=== PATIENT | female | born 1990 | race Caucasian/White ===

== ENCOUNTER → 2017-11-17 09:17 | Outpatient (CLI) | payer BC, SELFPAY ==
[2017-11-17 11:37] LABS: Estradiol 35.3 pg/mL; Follicle Stimulating Hormone 6.3 mIU/mL; Glucose 93 mg/dL (74-106); Prolactin 0.3 ng/mL
[2017-11-17 11:41] LABS: Insulin 10.2 mU/L (2.6-37.6); Vitamin D,25 Hydroxy 15.4 ng/mL (19.95-100.01)
[2017-11-21 12:08] LABS: DHEA Sulfate 226.4 ug/dL (84.8-378.0); Insulin Like Growth Factor 201 ng/mL (93-342)
[2017-11-21 14:44] LABS: Androstenedione 118 ng/dL (41-262); Sex Hormone-binding Globulin 39.5 nmol/L (24.6-122.0)
== END ==
PROVIDERS: Visit Provider Obstetrics & Gynecology
DX: D35.2 Benign neoplasm of pituitary gland (principal); R68.82 Decreased libido; R63.5 Abnormal weight gain; E22.9 Hyperfunction of pituitary gland, unspecified; E22.1 Hyperprolactinemia
CPT/HCPCS: 36415; 82157; 82306; 82627; 82670; 82947; 83001; 83525; 84146; 84270; 84305; 84403; 82626

== ENCOUNTER → 2018-06-09 15:30 | Outpatient (CLI) | payer BC, SELFPAY ==
[2018-06-09 18:02] LABS: Prolactin 13.1 ng/mL
== END ==
PROVIDERS: Visit Provider Obstetrics & Gynecology
DX: E22.1 Hyperprolactinemia (principal)
CPT/HCPCS: 36415; 84146

== ENCOUNTER 2018-09-23 05:01 | Emergency (ER) | payer BC, SELFPAY ==
[2018-09-23 05:01] VITALS: BP 147/97; PULSE 100; RESP 16; TEMP 37; O2SAT 99; BMI 25.4
--- NOTE | 2018-09-23 05:15 | ED.VISSUMM ---
- ER Visit Summary Date of Service: 09/23/18 Chief Complaint: Vomiting and diarrhea History of Present Illness: The patient is a 27 F presenting with vomiting and diarrhea. She has had approximately 5 episodes of vomiting with no blood in her emesis. She has had diarrhea x3 with no blood. She denies sick contacts. Denies possibility of bad food exposure. Denies recent antibiotics. Denies fever. She complains of mild diffuse abdominal cramping. Denies other complaints. Physical Examination: Vitals are stable. Patient is afebrile. Alert no acute distress. HEENT exam is unremarkable. Neck is supple. Lungs are clear and equal bilaterally. Heart is regular rate and rhythm. Abdomen is soft nontender nondistended. No guarding or rebound Extremities are unremarkable. Skin is warm and dry. Remainder of exam is unremarkable. Emergency Department Course and Treatment: Patient is given IV fluids, Zofran. Basic metabolic panel is unremarkable. HCG negative. She continues to have nausea and was given Phenergan IV. Following this, she had improvement of her symptoms. She is able to tolerate p.o. in the emergency department. On repeat evaluation she is resting comfortably. She is given a prescription for Phenergan. Advised to follow-up with her primary care physician. Advised return to ED if worsening complaints. Disposition: Discharge home Impression: Vomiting and diarrhea This note was generated with [employer]unch [employer] dictation software. It may contain incorrect words, spelling, and punctuation that were not noted in review of the chart prior to signing ED Disposition - Plan for ED Patient: Chief Complaint: Nausea/Vomiting/Diarrhea Instructions: ED Vomiting Diarrhea Nonspecific Ad Prescriptions: proMETHazine tablet [Phenergan] 25 mg PO Q6H PRN PRN #10 tablet PRN Reason: Nausea Referrals: Stephanie Freed MD [Primary Care Provider] -
[2018-09-23] MEDS: Ondansetron 4 MG/2 ML Vial IV (05:28)
[2018-09-23] MEDS: 0.9% Normal Saline 1,000 ML 999 ML IV (05:28)
[2018-09-23 05:53] LABS: Anion Gap 8 (5-15); BUN 8 mg/dL (7-18); BUN/Creat Ratio 14.7 RATIO (10-20); Calcium,Total 8.6 mg/dL (8.5-10.1); Chloride 107 mmol/L (98-107); Creatinine, Serum 0.55 mg/dL (0.55-1.02); EST Glomerular Filtration Rate 142 mL/min (>60); Est Glom Filt Rate - Afr Amer 172 mL/min (>60); Estimated Creatinine Clearance 122.59 ml/min; Glucose 107 mg/dL (74-106); Potassium 3.8 mmol/L (3.5-5.1); Sodium Level 142 mmol/L (136-145)
[2018-09-23 05:58] LABS: Pregnancy, Serum, hCG Quali. NEGATIVE Negative (0-9 Nonpreg)
[2018-09-23] MEDS: proMETHazine 25 MG/ML Syringe 6.25 MG IV (06:11)
--- NOTE | 2018-09-23 06:41 | ED.DEP ---
ED Disposition - Plan for ED Patient: Chief Complaint: Nausea/Vomiting/Diarrhea Instructions: ED Vomiting Diarrhea Nonspecific Ad Prescriptions: proMETHazine tablet [Phenergan] 25 mg PO Q6H PRN PRN #10 tablet PRN Reason: Nausea Referrals: Stephanie Freed MD [Primary Care Provider] -
[2018-09-23 06:56] VITALS: RESP 16
--- OUTSIDE RECORDS SUMMARY | 2018-11-09 01:53 | XMS RPT_ITS ---
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 / [facility] D35.2(ICD-10) Hospital Repository PROCEDURES PROCEDURES No Procedure Records FoundRESULTS RESULTS EMERGENCY DEPARTMENT Observed: 09/23/2018 Status: F Source: [place] SUMMARY 6:48 AM [facility] REPOSITORY [facility] Medical Records Department [address] [place] [address] Emergency Department Summary 09/23/18 0515 MR#: [id number] Acct: [id number] Name: JOSEPH BAUTISTA Rep #: [id number] : 1990 27 From: Cait Valdez MD PCP: Stephanie Freed MD Status: REG ER - ER Visit Summary Date of Service: 09/23/18 Chief Complaint: Vomiting and diarrhea History of Present Illness: The patient is a 27 F presenting with vomiting and diarrhea. She has had approximately 5 episodes of vomiting with no blood in her emesis. She has had diarrhea x3 with no blood. She denies sick contacts. Denies possibility of bad food exposure. Denies recent antibiotics. Denies fever. She complains of mild diffuse abdominal cramping. Denies other complaints. Physical Examination: Vitals are stable. Patient is afebrile. Alert no acute distress. HEENT exam is unremarkable. Neck is supple. Lungs are clear and equal bilaterally. Heart is regular rate and rhythm. Abdomen is soft nontender nondistended. No guarding or rebound Extremities are unremarkable. Skin is warm and dry. Remainder of exam is unremarkable. Emergency Department Course and Treatment: Patient is given IV fluids, Zofran. Basic metabolic panel is unremarkable. HCG negative. She continues to have nausea and was given Phenergan IV. Following this, she had improvement of her symptoms. She is able to tolerate p.o. in the emergency department. On repeat evaluation she is resting comfortably. She is given a prescription for Phenergan. Advised to follow-up with her primary care physician. Advised return to ED if worsening complaints. Disposition: Discharge home Impression: Vomiting and diarrhea This note was generated with Lot78 dictation software. It may contain incorrect words, spelling, and punctuation that were not noted in review of the chart prior to signing ED Disposition - Plan for ED Patient: Chief Complaint: Nausea/Vomiting/Diarrhea Instructions: ED Vomiting Diarrhea Nonspecific Ad Prescriptions: proMETHazine tablet [Phenergan] 25 mg PO Q6H PRN PRN #10 tablet PRN Reason: Nausea Referrals: Stephanie Freed MD [Primary Care Provider] - What to do if you have Problems For any increased pain, shortness of breath, bleeding, nausea or vomiting, chest pain, or any unexpected problems, contact your Primary Care Provider. Call [facility] ([phone]) or report to the closest Emergency Room. Call 911 if necessary. 09/23/1848 <Electronically signed by Cait Valdez MD> Date Cait Valdez MD Cosigner Signature (If Indicated): Date CC: Stephanie Freed MD DISCHARGE INSTRUCTION Observed: 09/23/2018 Status: F Source: [place] 6:41 AM [facility] REPOSITORY [facility] Medical Records Department [address] [place] [address] Discharge Instruction 09/23/18640 MR#: [id number] Acct: [id number] Name: JOSEPH BAUTISTA Rep #: [id number] : 1990 27 From: Cait Valdez MD PCP: Stephanie Freed MD Status: REG ER ED Disposition - Plan for ED Patient: Chief Complaint: Nausea/Vomiting/Diarrhea Instructions: ED Vomiting Diarrhea Nonspecific Ad Prescriptions: proMETHazine tablet [Phenergan] 25 mg PO Q6H PRN PRN #10 tablet PRN Reason: Nausea Referrals: Stephanie Freed MD [Primary Care Provider] - What to do if you have Problems For any increased pain, shortness of breath, bleeding, nausea or vomiting, chest pain, or any unexpected problems, contact your Primary Care Provider. Call [facility] ([phone]) or report to the closest Emergency Room. Call 911 if necessary. 09/23/18640 <Electronically signed by Cait Valdez MD> Date Cait Valdez MD Cosigner Signature (If Indicated): Date CC: Stephanie Freed MD BASIC METABOLIC Collected: 09/23/2018 Status: F Source: [place] PROFILE (BMP) 5:33 AM [facility] REPOSITORY TYPE CODE TESTS RESULT OUT OF RANGE REFERENCE UNITS LAB L501.0100 74-106 mg/dL High GLU 107 Result Comment: Fasting Glucose result from 100 to 125 mg/dL suggests IMPAIRED HOMEOSTASIS per A.D.A. criteria. Please note revised GLUCOSE reference range effective 2017. LAB L501.1000 7-18 mg/dL Normal BUN 8 LAB L501.1100 0.55-1.02 mg/dL Normal CREAT,SERUM 0.55 Result Comment: The validity of the calculated GFR AND GFRAA in patients over 70 years has not been determined. Clinical correlation is essential. LAB L501.1110 >60 mL/min Normal EST GFR 142 Result Comment: Non- GFR Calc LAB L501.1115 >60 mL/min Normal EST GFR - AA 172 Result Comment: GFR Calc LAB L501.1255 ml/min Normal Estimated CRCL 122.59 LAB L501.1300 10-20 RATIO BUN/CRE Normal 14.7 LAB L501.2200 8.5-10 mg/dL .1 CA Normal 8.6 LAB L501.5300 136-14 mmol/L 5 NA Normal 142 LAB L501.5600 3.5-5. mmol/L 1 K Normal 3.8 LAB L501.5900 98-107 mmol/L CL Normal 107 LAB L501.6100 21.0-3 mmol/L 2.0 CO2 Normal 27.0 LAB L501.6200 5-15 GAP Normal 8 Performed By: #### L500.2500 #### [facility] [address] [place], [address] ,SERUM,HCG QUALI. Collected: Status: F Source: [place] 09/23/2018 5:33 AM [facility] REPOSITORY TYPE CODE TESTS RESULT OUT OF REFERENCE UNITS RANGE LAB L700.6700 =>Qualitative mIU/mL Normal HCG Qual < 1 triggr LAB L700.7000 0-9 Nonpreg Negative Normal HCGSQUAL NEGATIVE Performed By: #### L700.6800 #### [facility] [address] [place], [address] PROLACTIN Collected: 06/09/2018 Status: F Source: [place] 3:35 PM [facility] REPOSITORY TYPE CODE TESTS RESULT OUT OF RANGE REFERENCE UNITS LAB L3100.5420 ng/mL Normal PROLACTIN 13.1 Result Comment: NORMAL REFERENCE RANGES FEMALE NON- 2.2 - 30.3 ng/mL 8.1 - 347.6 ng/mL POST-MENOPAUSAL 0.7 - 31.5 ng/mL MALE 2.5 - 17.4 ng/mL NEW TEST METHOD AND REFERENCE RANGES MARCH 02, 2012 Performed By: #### L3100.5420 #### [facility] [address] [place], [address] VITAMIN D,25 HYDROXY Collected: 11/17/2017 Status: F Source: [place] 9:36 AM [facility] REPOSITORY TYPE CODE TESTS RESULT OUT OF REFERENCE UNITS RANGE LAB L506.1000 19.95-100.01 ng/mL Low Vitamin D 15.4 25-OH Result Comment: Vitamin D 25(OH) Status Range Deficiency <20 ng/mL (50nmol/L) Insuffciency 20 - 30 ng/mL (50 - 75 nmol/L) Sufficiency 30 - 100 ng/mL (75 - 250 nmol/L) Toxicity >100 ng/mL (>250 nmol/L) Performed By: #### L506.1000, L509.3000, [id number] #### [facility] [address] [place], [address] TESTOSTERONE, SERUM TOTAL Collected: 11/17/2017 Status: F Source: [place] 9:36 AM [facility] REPOSITORY TYPE CODE TESTS RESULT OUT OF REFERENCE UNITS RANGE LAB L509.3000 ng/dL Testosterone Normal 20.13 Result Comment: NORMAL REFERENCE RANGES MALE AGE <50 123.06 - 813.86 ng/dL MALE AGE >50 89.98 - 780.10 ng/dL FEMALE PREMENOPAUSE AGE 21 - 60 9.01 - 47.94 ng/dL FEMALE POSTMENOPAUSE AGE 45 - 89 <7.00 - 45.62 ng/dL REFERENCE RANGE AND METHODOLOGY CHANGED 10/01/2017 Performed By: #### L506.1000, L509.3000, [id number] #### [facility] [address] [place], [place], [address] INSULIN Collected: 11/17/2017 Status: F Source: [place] 9:36 AM [facility] REPOSITORY TYPE CODE TESTS RESULT OUT OF RANGE REFERENCE UNITS LAB [id number] 2.6-37.6 mU/L Normal Insulin 10.2 Result Comment: Please Note: INSULIN METHOD AND REFERENCE RANGE CHANGE Effective 10/23/2017. Performed By: #### L506.1000, L509.3000, [id number] #### [facility] [address] [place], [place], [address] SEX HORMONE-BINDING Collected: 11/17/2017 Status: F Source: [place] GLOBULIN 9:36 AM [facility] REPOSITORY Order Comment: Has Patient had Radioactive Injection for X-ray?: N TYPE CODE TESTS RESULT OUT OF RANGE REFERENCE UNITS LAB L3100.5060 24.6-122.0 nmol/L Normal SHBG 39.5 Result Comment: Performed at: [facility] [id number] Retort Cooler: Everett Spencer PhD, Phone: [phone] Performed at: [facility] Lab[address] [id number] Retort Cooler: Shade Koo MD, Phone: [phone] Performed By: #### L3100.5060, L3300.1500, L3300.4450, L3400.1350 #### [facility] (refer to report for specific site) refer to report for address and phone number DHEA SULFATE Collected: 11/17/2017 Status: F Source: [place] 9:36 AM [facility] REPOSITORY Order Comment: Has Patient had Radioactive Injection for X-ray?: N TYPE CODE TESTS RESULT OUT OF RANGE REFERENCE UNITS LAB L3300.1500 84.8-378.0 ug/dL Normal DHEA SULF 226.4 4020 Performed By: #### L3100.5060, L3300.1500, L3300.4450, L3400.1350 #### [facility] (refer to report for specific site) refer to report for address and phone number ANDROSTENEDIONE Collected: 11/17/2017 Status: F Source: [place] 9:36 AM [facility] REPOSITORY Order Comment: Has Patient had Radioactive Injection for X-ray?: N TYPE CODE TESTS RESULT OUT OF RANGE REFERENCE UNITS LAB L3300.4450 41-262 ng/dL Normal ANDROSTEN 4705 118 Result Comment: This test was developed and its performance characteristics determined by [facility]. It has not been cleared or approved by the Food and Drug Administration. Performed By: #### L3100.5060, L3300.1500, L3300.4450, L3400.1350 #### [facility] (refer to report for specific site) refer to report for address and phone number INSULIN LIKE GROWTH Collected: 11/17/2017 Status: F Source: [place] FACTOR 9:36 AM [facility] REPOSITORY Order Comment: Has Patient had Radioactive Injection for X-ray?: N TYPE CODE TESTS RESULT OUT OF RANGE REFERENCE UNITS LAB L3400.1350 93-342 ng/mL Normal INSULIN 201 [id number] Performed By: #### L3100.5060, L3300.1500, L3300.4450, L3400.1350 #### [facility] (refer to report for specific site) refer to report for address and phone number GLUCOSE Collected: 11/17/2017 Status: F Source: [place] 9:21 AM [facility] REPOSITORY TYPE CODE TESTS RESULT OUT OF RANGE REFERENCE UNITS LAB L501.0100 74-106 mg/dL Normal GLU 93 Performed By: #### L501.0100, L3100.5125, L3100.5420, L3300.1750 #### [facility] [place], [address] FOLLICLE STIMULATING Collected: 11/17/2017 Status: F Source: [place] HORMONE 9:21 AM [facility] REPOSITORY TYPE CODE TESTS RESULT OUT OF RANGE REFERENCE UNITS LAB L3100.5125 mIU/mL Normal FSH 6.3 Result Comment: NORMAL REFERENCE RANGES FEMALE FOLLICULAR 2.3 - 12.6 mIU/mL MID-CYCLE PEAK 5.2 - 17.5 mIU/mL LUTEAL 1.7 - 12.9 mIU/mL POST-MENOPAUSAL ON MHT 5.9 - 72.8 mIU/mL NOT ON MHT 12.7 - 132.2 mlU/mL MALE 0.7 - 10.8 mIU/mL NEW TEST METHOD AND REFERENCE RANGES MARCH 02, 2012 Performed By: #### L501.0100, L3100.5125, L3100.5420, L3300.1750 #### [facility] [address] [place], [place], [address] PROLACTIN Collected: 11/17/2017 Status: F Source: [place] 9:21 AM [facility] REPOSITORY TYPE CODE TESTS RESULT OUT OF RANGE REFERENCE UNITS LAB L3100.5420 ng/mL Normal PROLACTIN 0.3 Result Comment: NORMAL REFERENCE RANGES FEMALE NON- 2.2 - 30.3 ng/mL 8.1 - 347.6 ng/mL POST-MENOPAUSAL 0.7 - 31.5 ng/mL MALE 2.5 - 17.4 ng/mL NEW TEST METHOD AND REFERENCE RANGES MARCH 02, 2012 Performed By: #### L501.0100, L3100.5125, L3100.5420, L3300.1750 #### [facility] [address] [place], [place], [id number] ESTRADIOL Collected: 11/17/2017 Status: F Source: [place] 9:21 AM [facility] REPOSITORY TYPE CODE TESTS RESULT OUT OF RANGE REFERENCE UNITS LAB L3300.1750 pg/mL Normal ESTRADIOL 35.3 Result Comment: NORMAL REFERENCE RANGES FEMALE FOLLICULAR 21.4 - 164.8 pg/mL MID-CYCLE PEAK 49.9 - 367.2 pg/mL LUTEAL 40.2 - 259.0 pg/mL POST-MENOPAUSAL ON MHT <11.0 - 462.1 pg/mL NOT ON MHT <11.0 - 58.3 pg/mL MALE <11.0 - 52.5 pg/mL NOTE: [facility] HAS CONFIRMED THE DRUG FULVETRANT (FASLODEX) MAY CAUSE FALSELY ELEVATED ESTRADIOL RESULTS WHEN USING THIS TEST METHOD. IF PATIENT IS TAKING FULVESTRANT AN ALTERNATIVE METHOD SHOULD BE USED TO DETERMINE ESTRADIOL CONCENTRATION. Performed By: #### L501.0100, L3100.5125, L3100.5420, L3300.1750 #### [facility] [address] [place], [place], [address] ALLERGIES ALLERGIES DATE TYPE / CODE NAME / CODE REACTION SEVERITY SOURCE 09/11/2017 Drug No Known Unknown [place] [facility] Allergy/4160 Allergies/F00 Hospital 11886(SNOMED 9316135(RXNOR Repository CT) M) ENCOUNTERS ENCOUNTERS ADMIT/DISCHARGE ACCOUNT ADMITTING ENCOUNTER LOCATION SOURCE NUMBER CLASS 09/23/2018/ [id number] Emergency [place] 8 7 [facility] ing:ED Repository 06/09/2018 [id number] Ambulatory [place] 3 [facility] ing:WOBLAB Repository 11/17/2017 [id number] Ambulatory [place] 7 [facility] ing:WOBLAB Repository PAYERS PAYERS ENCOUNTER GUARANTOR PAYER SUBSCRIBER SOURCE 09/23/2018 MARION ANDREWS Primary MARION Schulz [id number] Insurance:ANTHEMPolic SNOWDOB: [facility] y Number: [id number], [place] [id number] Repository [address]Jey: (330) Date:[id number] [address] () [id number] [place] [address]NQ: 09/23/2018 Secondary NOT GIVENUNK [place] Insurance:SELF PAY [facility] Number: Effective Repository Date:2018-09-23 06/09/2018 Marion Andrews Primary Marion Schulz [id number] Insurance:ANTHEMPolic [facility] [address] Number: [id number], [place] [id number] Repository 48321Qkd: (330) Date:[id number] [address]OX () [address]16[address]AZGQYDD, [place] [address]LL: 06/09/2018 Secondary NOT GIVENUNK [place] Insurance:SELF PAY [facility] Number: Effective Repository Date:2018-06-09 11/17/2017 Marion Andrews Primary Marion Schulz [id number] [address] Insurance:ANTHEMPolic SnowDOB: [facility] y Number: [id number], [place] [id number] Repository 21181Qah: (330) Date:[id number] [address]OX () [address]NLOXXYF, [place] [address]MG: 11/17/2017 Secondary NOT GIVENUNK [place] Insurance:SELF PAY [facility] Number: Effective Repository Date:2017-11-17
== END 2018-09-23 07:03 | disposition home or self-care (01) ==
LOC: ED 05:33
PROVIDERS: Emergency Provider Emergency Medicine; Family Provider Family Medicine; PCP Family Medicine
DX: R11.2 Nausea with vomiting, unspecified (principal); R19.7 Diarrhea, unspecified; R10.9 Unspecified abdominal pain
CPT/HCPCS: 80048; 84703; 96361; 96374; 96375; 99283; J7030; A4216; J2405

== ENCOUNTER 2018-11-26 05:30 | Day surgery (SDC) | payer BC, SELFPAY ==
[2018-11-20 17:14] LABS: Hematocrit 43.7 % (37-47); Hemoglobin 14.1 g/dl (12.0-15.0); Mean Corp Hgb Conc 32.3 g/gl (32-36); Mean Corpuscular Hgb 29.1 pg (27.0-32.0); Mean Corpuscular Volume 90.1 fL (81-99); Mean Platelet Vol. 13.2 fl (6.2-12.0); Platelet Count 215 K/mm3 (150-450); RBC Distribution Width CV 13.1 % (11.6-14.6); RBC Distribution Width SD 42.6 fl (35.1-43.9); Red Blood Count 4.85 M/mm3 (4.2-5.4); Scan Indicated on CBC? Y/N NO; White Blood Count 8.2 K/mm3 (4.4-11.0)
[2018-11-20 17:31] LABS: Prothrombin Time (Protime)PT. 13.3 SECONDS (11.7-14.9)
[2018-11-20 17:32] LABS: Partial Thromboplast Time 30.6 Seconds (24.1-36.2)
[2018-11-20 17:33] LABS: Estradiol 27.9 pg/mL; Prolactin 7.9 ng/mL
[2018-11-26 06:05] VITALS: BP 109/94; PULSE 93; RESP 16; TEMP 37.2; O2SAT 100; BMI 25.2
[2018-11-26 06:05] LABS: Internal QC Validated? YES +Cl - CLEAR BKGD; Pregnancy, Urine Negative Negative
--- NOTE | 2018-11-26 06:17 | PCM.HPOB.BLA ---
- Problem List (1) Dysmenorrhea Status: Acute (2) Dyspareunia Status: Acute History and Physical Date of Admission: 11/26/18 Date: 11/20/2018 Name: KATELYN BAUTISTA Age: 27 Date of : 1990 HISTORY OF PRESENT ILLNESS: On 11/20/2018, Katelyn Bautista, a 27 year old female 1 0 0 0 1, presented for: -- Pre-Op -- Katelyn is here today for her pre op appointment. Patient is scheduled for dx lap with treatment of endometriosis 11/26/2018. Consent reviewed with patient and signed. Patient has already received PAT call from [facility]. She will plan to have labs done at hospital today after her appointment in this office. jlb as above. hx Dysmenorrhea and dyspareunia. shm ALLERGIES: Ortho Tri-Cyclen (28), Severe nausea & vomiting, Bromocriptine and Vomiting MEDICATIONS HISTORY: Current medications prescribed by our practice are: 1. Prometrium 200 mg capsule, 1 tab PO qpm 2. Prometrium 200 mg capsule, 1 tab PO qpm on cycle day 14 to 25 3. Vitamin D2 50,000 unit capsule, 1 tab PO weekly REVIEW OF SYSTEMS: GENERAL - Denies fever, or chills SKIN - Denies skin changes EYES - Denies visual changes EARS - Denies difficulty hearing NOSE - Denies nasal congestion or bleeding MOUTH - Denies sore throat or difficulty swallowing NECK - Denies pain or swelling RESPIRATORY - Denies shortness of breath or wheezing CARDIOVASCULAR - Denies palpitations or chest pain GASTROINTESTINAL - Denies nausea, vomiting, diarrhea, constipation GENITOURINARY - cramping , painful IC MUSCULOSKELETAL - Denies joint or muscle pain NEUROLOGICAL - Denies localized numbness or weakness PSYCHIATRIC - Denies depression or anxiety ENDOCRINE - Denies heat or cold intolerance, weight loss or gain HEMATO-IMMUNOLOGIC - Denies excesive bleeding with cuts PAST HISTORY: Breast/Ovarian/Colon Cancers - paternal aunt breast ca Infections - Chicken pox Illnesses - mild heart murmur, h/o HSV Accidents - None History of Abnormal PAPS - Denies Hospitalizations - Childbirth GERD; SURGICAL HISTORY: 1. [place] Teeth Removal MENSTRUAL HISTORY: LMP Known?- DefiniteAmount/Duration - 5 days, Regularity - Irregular, Frequency - monthly days, LMP - 11/17/18, Age Onset Menarche - 15 PAST PREGNANCIES: Total Pregnancies - 1; Full Term Pregnancies - 1; Premature - 0; Abortions, Induced - 0; Abortions, Spontaneous - 0; Ectopics - 0; Multiple Births - 0; Living Children - 1 FAMILY HISTORY: Father - FH: Hypertension; Father - Heart disorder; Aunt - Carcinoma of breast; PaternalGrandparent - Carcinoma of the pancreas; SOCIAL HISTORY: Alcohol Use - RARELY Smoking - denies smoking Diet - balanced Diet Lifestyle - Exercise - active work Seat Belt Use - always 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 Drug Use - denies use of street drugs Sexual Activity - Residence - owns a home Hours Worked - PT Spouse-Sig Other Name - Jourdan Spouse-Sig Other Occupation - Foam Caster Children Name(s) - Pat Control - none PHYSICAL EXAMINATION BP- 112/70 Sitting, Right arm, regular cuff Temp- 98.1 Taken Orally Weight- 139.00 lbs Height- 61.50 inch BMI:25.89 CONSTITUTIONAL - NAD, well nourished, and well developed SKIN - No rash, lesions, or ulcers HEENT - normocephalic, atraumatic, sclerae anicteric LUNGS - CTA x2 without wheezes, crackles or rales CARDIAC - Regular rate and rhythm without rubs, murmurs, or gallops ABDOMEN - Without hepatosplenomegaly, distention, masses, rebound, or guarding; normal bowel sounds; no hernias EXTREMITIES - No edema or calf tenderness NEUROLOGICAL - normal gait, normal balance, normal motor PSYCHIATRIC - A and O to time, place, person, mood and affect ASSESSMENT: PLAN BY DIAGNOSIS: 1. Dyspareunia, Endometriosis and Unspecified Prior US unremarkable Longstanding hx dyspareunia, dysmenorrhea - intolerant to hormonal methods Plan for diagnostic laparoscopy, surgical treatment of endometriosis as indicated Reviewed procedural risks, benefits, indications, alternatives - consents signed and reviewed NPO @ [place] prior to procedure Preop labs appropriate
--- NOTE | 2018-11-26 07:15 | EMB_PTH ---
PATIENT: JOSEPH BAUTISTA LOC: [facility] [place] U#:[id number] AGE/SX: 27/F ROOM: RE11/26/[address]: Dr. Birgit Beckett MD : 1990 BED: DIS: 11/26/2018 SPEC #: [id number] RECD: 11/26/18 10:43 STATUS: SHARMILA RETana #: [id number] ELIZABETH: 11/26/18 07:[address]: Birgit Guevara DEPT: SURGICAL PATHOLOGY RECD BY: Kingsley Castro ENTERED: 11/26/18 13:33 SP TYPE: ENDOM BX/C SUYAPA DR: Dr. Stephanie Freed MD Tissues: Endometrium, NOS Procedures: Surgery Specimen Level IV HEADER OPERATION: Diagnostic laparoscopy, treatment of endometriosis PRE-OP DIAGNOSIS: Dysmenorrhea, dyspareunia TISSUE SUBMITTED: A - Biopsy left anterior cul-de-sac, B - Right anterior cul-de-sac nodule biopsy MICROSCOPIC DIAGNOSIS A. Left anterior cul-de-sac, biopsy: Mesothelial-lined fibroadipose and fibroconnective tissue, negative for endometriosis. B. Right anterior cul-de-sac nodule, biopsy: Consistent with endometriosis. RACHELLE:ngoc 11/27/18 MICROSCOPIC DESCRIPTION Slides are reviewed. GROSS DESCRIPTION A - Received in fixative is one container labeled with the patient's name and designated left anterior culde-sac biopsy. The specimen consists of one irregular fragment of light newman soft tissue that measures 0.7 x 0.5 x 0.2 cm. The specimen is totally submitted in one cassette. B - Received in fixative is one container labeled with the patient's name and designated right anterior culde-sac nodule biopsy. The specimen consists of a piece of newman soft tissue that measures 0.7 x 0.5 x 0.2 cm. The specimen is totally submitted in one cassette. / RACHELLE:ngoc 11/26/18 TC:5 CPT: 79719 x2
[2018-11-26] MEDS: Bupivacaine 0.5% PF 10 ML VIAL (08:00)
--- NOTE | 2018-11-26 08:22 | OP.PCM_ITS ---
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 Left anterior cul-de-sac peritoneum. 2. Right anterior cul-de-sac endometriosis implant Drains: 50 cc urine straight cath Estimated Blood Loss (mL): 10 Fluids Replaced: 800 Description of Procedure: Indications: 27-year-old para 1 with a long-standing history of dysmenorrhea and dyspareunia. She was intolerant to hormonal methods this opted to proceed with diagnostic laparoscopy to rule out anD possibly treat endometriosis. Risks, benefits, indications and alternatives of procedure were reviewed at length. Patient desired to proceed. Procedure: The patient was taken to the operating room and Center was performed she was placed in the dorsal supine position and induced under general anesthesi a and intubated. She was then repositioned to dorsolithotomy and her arms were tucked at her sides. Examination under anesthesia was performed. The abdomen and perineum were prepped and draped in sterile fashion. Straight catheterization of the bladder was performed. A weighted speculum was placed into the vagina and cervix visualized and grasped the anterior cervical lip using a single-tooth tenaculum. The uterus sounded to 7 cm and a ZUMI uterine manipulator was placed. The tenaculum was removed from the cervix the patient placed into low lithotomy attention turned to the abdomen. 0.5% Sensorcaine was placed at the inferior umbilicus and incision was made at the site. The needle was placed with successful hanging drop test and no aspirate. The abdomen was insufflated to 15 mmHg. The Veress needle was removed and a 5 mm trocar placed under laparoscopic guidance confirming entry into the abdominal cavity. In similar fashion Sensorcaine was administered for tap block at the suprapubic midline. Incision was made and trocar again placed. Patient was repositioned into Trendelenburg. Exploration of the abdomen and pelvis was performed with anterior cul-de-sac lesions suspicious for endometriosis and scarring related to endometriosis. Additional ports were placed in the right and left lower quadrant following administration of tap block. A scarred peritoneal lesion in the left anterior cul-de-sac was excised using sharp and blunt dissection and biopsy sent to pathology. A second anterior cul-de-sac lesion was suspicious for endometrial implant traversing the peritoneum. This was excised using sharp and blunt dissection. Capillary bleeding was controlled using the monopolar energy with good hemostasis. The procedure was deemed complete. The abdomen was desufflated and patient was given several deep breaths for further desufflation. The skin was closed with 4-0 Monocryl and OpSite dressings placed. The uterine manipulator was removed and the patient placed into dorsal supine position. Was awakened, extubated and transferred to the recovery room without complication. Sponge and needle counts were correct x2. Patient tolerated the procedure well. - Complications None - Admit VTE Documentation VTE Present on Admission: No VTE Mechan Device Prophylaxis: SCD's VTE Pharm Prophylaxis ordered?: No
--- NOTE | 2018-11-26 08:27 | DCINST_ITS ---
- Discharge Diagnoses Current Active Problems: Current Active and Chronic Problems Dysmenorrhea (Chronic) Rule out endometriosis Dyspareunia (Chronic) Reason(s) for Visit for Discharge Instructions: Laparoscopy You will use the following diet at home:: No restrictions Your food should be the consistency of: Regular Discharge Activity: Return to Normal Activity, May not drive while taking narcotic pain medications., May Shower May resume sexual activity in: 4 weeks Lifting Restrictions: 10 lb Call your doctor if your incision/area has: Continuous Slow Oozing, Sudden Increased Bleeding, Increased Pain/ Swelling, Increased Redness Call your doctor if you observe: Fever of 101 or Higher, Inability to urinate, Inability to have a bowel movement, Using more than one pad per hour, Shortness of breath, Chest pain, Calf discomfort, Uncontrolled pain Suture Line Care: Avoid Pulling/Pushing Remove Dressing in (days):: 1 - Remove steristrip bandaids on Friday Cleanse incision/area with: Soap & Water Allergies/Adverse Reactions: Allergies No Known Allergies Allergy (Verified 11/19/18 13:56) Medications to take at Discharge Ascorbic Acid [Vitamin C] 500 mg PO DAILY 11/19/18 Clear Skin Vitamin 1 tab PO DAILY 11/19/18 Mv-Min/Vit C/Glut/Lysine/Hb124 [Immune Support Chewable Tablet] 2 each PO DAILY 11/19/18 Ranitidine [Zantac] 150 mg PO QHS 11/19/18 Docusate Sodium [Colace] 100 mg PO BID PRN PRN #60 capsule 11/26/18 Ibuprofen 600 mg PO TID PRN #30 tablet 11/26/18 Oxycodone [Oxyir] 5 mg PO Q6H PRN PRN 7 Days #16 tablet 11/26/18 The following prescriptions were given: Oxycodone [Oxyir] 5 mg PO Q6H PRN PRN 7 Days #16 tablet PRN Reason: Severe Pain (6-07/22) Docusate Sodium [Colace] 100 mg PO BID PRN PRN #60 capsule PRN Reason: Constipation Ibuprofen 600 mg PO TID PRN #30 tablet PRN Reason: Pain Primary Care Physician: Stephanie Freed MD [Primary Care Provider] - Test Results: Test results from this visit will be discussed in further detail at your follow- up appointment, if applicable. Please Follow Up With: Birgit Okeefe MD When: 2-4 weeks
[2018-11-26 08:30] VITALS: BP 109/94; BP 124/98; PULSE 130; RESP 16; TEMP 36.9; O2SAT 100
[2018-11-26 08:45] VITALS: BP 109/94; BP 122/75; PULSE 121; RESP 16; O2SAT 99
[2018-11-26 08:59] VITALS: BP 109/94; BP 117/83; PULSE 110; RESP 16; TEMP 36.6; O2SAT 97
[2018-11-26 10:23] VITALS: BP 105/67; BP 109/94; PULSE 78; RESP 18; TEMP 36.7; O2SAT 100
[2018-11-26 11:46] VITALS: BP 109/94; BP 117/74; PULSE 86; RESP 18; TEMP 36.5; O2SAT 100
== END 2018-11-26 11:48 | disposition home or self-care (01) ==
LOC: SDC 05:31 → AC 05:33
PROVIDERS: Family Provider Family Medicine; PCP Family Medicine; Referring Provider Obstetrics & Gynecology; Visit Provider Obstetrics & Gynecology
PROC: (CPT 49320; principal; 2018-11-26 07:00)
DX: N94.6 Dysmenorrhea, unspecified (principal); N94.10 Unspecified dyspareunia; N80.3 Endometriosis of pelvic peritoneum; R01.1 Cardiac murmur, unspecified; K21.9 Gastro-esophageal reflux disease without esophagitis; Z79.899 Other long term (current) drug therapy
CPT/HCPCS: 49321; 36415; 81025; 82670; 83001; 84146; 85027; 85610; 85730; 86850; 86900; 88305; J7120; J2405

== ENCOUNTER 2019-05-24 22:39 | Emergency (ER) | payer BC, SELFPAY ==
[2019-05-24 22:40] VITALS: BP 119/73; PULSE 94; RESP 14; TEMP 37.1; O2SAT 97; BMI 23.8
--- NOTE | 2019-05-24 23:13 | ED.DCSUM_ITS ---
- ER Visit Summary Date of Service: 05/24/19 Chief Complaint: [Nausea] History of Present Illness: The patient is a 28 F [presents to the emergency department complaint of nausea that started 3 days ago. Patient describes intermittent episodes of nausea and some intermittent abdominal cramping. Patient states that her had similar type of illness last week and lasted about 4 days. His symptoms have since resolved. Patient also states that her daughter started complaining of abdominal discomfort last evening and she is had some intermittent discomfort. Patient denies any fever. She is had no vomiting. She is had no diarrhea. She denies urinary symptoms. Last menstrual. Was less than a month ago and she is not late and does not believe that she is . Patient presented just requesting some Zofran. She is had laparoscopy but no other abdominal surgeries.] Physical Examination: [HEENT-PERRLA, EOMI. Cranial nerves II through XII grossly intact. TMs clear. Mucous membranes moist. No adenopathy. Cardiovascular-regular rate and rhythm without murmur or ectopy Lungs-clear to auscultation, chest wall stable without crepitus or subcu emphysema Abdomen-normoactive bowel sounds, soft, nontender, no rebound or rigidity, no peritoneal signs. Extremities-intact ?4, normal range of motion, normal pulses, atraumatic] Test Results: [None indicated] Emergency Department Course and Treatment: [She was given Zofran 4 mg p.o.] Treatment Plan: [Will be given a prescription for Zofran. Suspect likely a viral etiology for her symptomatology. She has an nontender abdominal exam and do not feel any further work-up is indicated at this time. Patient is in agreement.] Disposition: [Discharged home stable condition.] Impression: Nausea [] This note was generated with [employer] software. It may contain incorrect words, spelling, and punctuation that were not noted in review of the chart prior to signing ED Disposition - Plan for ED Patient: Referrals: Stephanie Freed MD [Primary Care Provider] -
--- NOTE | 2019-05-24 23:16 | ED.DEP ---
ED Disposition - Plan for ED Patient: Instructions: VOMITING (7y-Adult) Prescriptions: Ondansetron [Zofran Odt] 4 mg PO Q8H PRN PRN #10 tab PRN Reason: Nausea Prescription Printed Referrals: Stephanie Freed MD [Primary Care Provider] - 3-5 Days
[2019-05-24] MEDS: Ondansetron ODT 4 MG Tablet PO (23:25)
[2019-05-24 23:42] VITALS: BP 119/73; PULSE 94; RESP 14; O2SAT 97
== END 2019-05-24 23:43 | disposition home or self-care (01) ==
LOC: ED 23:22
PROVIDERS: Emergency Provider Emergency Medicine; Family Provider Family Medicine; PCP Family Medicine
DX: R11.0 Nausea (principal); R10.9 Unspecified abdominal pain
CPT/HCPCS: 99283

== ENCOUNTER → 2019-06-09 | Outpatient (CLI) | payer BC, SELFPAY ==
[2019-05-24 22:40] VITALS: BMI 23.8
[2019-06-15 15:11] LABS: HPV Reflexed? NOT INDICATED
== END | disposition home or self-care (01) ==
LOC: LABSPEC 16:02
PROVIDERS: Family Provider Family Medicine; PCP Family Medicine; Referring Provider Obstetrics & Gynecology; Visit Provider Obstetrics & Gynecology
DX: Z12.4 Encounter for screening for malignant neoplasm of cervix (principal)
CPT/HCPCS: 87624; 88175; G0145

== ENCOUNTER → 2019-06-15 | Outpatient (CLI) | payer BC, SELFPAY ==
[2019-05-24 22:40] VITALS: BMI 23.8
[2019-06-15 17:50] LABS: Estradiol 83.1 pg/mL
[2019-06-17 13:09] LABS: DHEA Sulfate 301.3 ug/dL (84.8-378.0)
== END | disposition home or self-care (01) ==
LOC: WOBLAB 13:31
PROVIDERS: Visit Provider Obstetrics & Gynecology
DX: N80.9 Endometriosis, unspecified (principal); R68.82 Decreased libido; N92.6 Irregular menstruation, unspecified
CPT/HCPCS: 36415; 82627; 82670; 84144; 82626

== ENCOUNTER 2020-10-14 00:47 | Emergency (ER) | payer BC, SELFPAY ==
[2020-10-14 00:48] VITALS: BP 125/75; PULSE 119; RESP 16; TEMP 36.9; O2SAT 98; BMI 23.3
[2020-10-14 00:50] VITALS: BP 125/75; PULSE 119; RESP 16; TEMP 36.9; O2SAT 98
--- NOTE | 2020-10-14 01:09 | ED.VIS.GEN ---
History of Present Illness Chief Complaint: Nausea/Vomiting/Diarrhea Informant: Patient Narrative: Stated she started having diarrhea 24 hours ago. She had 5 episodes yesterday loose watery. She had nausea with one episode of emesis yesterday. She had 4 episodes of emesis today. She has dry heaves. She tried to take Zofran but cannot keep it down. No fevers or chills. Denies any other coronavirus symptoms. No abdominal pain. Current severity is mild to moderate. Does not hurt to push on her stomach. Denies . Denies any urinary symptoms. Denies bad food exposures. Thinks she might have the stomach flu. - Past Medical History (1) Dysmenorrhea Status: Chronic Comment: Rule out endometriosis (2) Dyspareunia Status: Chronic (3) Endometriosis determined by laparoscopy Status: Chronic Past Medical History - Allergies and Home Meds Allergies/Adverse Reactions: Allergies No Known Allergies Allergy (Verified 05/24/19 22:43) Primary Care Physician: Stephanie Freed MD [Primary Care Provider] - Prior records reviewed: Yes Past Medical History: - - Endometriosis Surgical History: - - Reviewed Lives: With Family Smoking Status: Unknown if ever smoked Alcohol: None Drugs: None Review of Systems General: Denies: Chills, Fever, Sweats Eyes: Denies: Visual changes - bilaterally, Diplopia ENT: Denies: Rhinorrhea, Sore throat Cardiovascular: Denies: Chest pain, Palpitations Respiratory: Denies: Dyspnea, Cough, Dyspnea on exertion Gastrointestinal: Reports: Nausea, Vomiting, Diarrhea. Denies: Abdominal pain, Melena, Hematochezia Genitourinary: Denies: Dysuria, Hematuria, Frequency Musculoskeletal: Denies: Back pain, Extremity Pain Skin: Denies: Rash, Wounds Neurological: Denies: Headache, Weakness, Numbness Physical Exam Vital Signs/Narrative: Vital Signs Temp Pulse Resp BP Pulse Ox 10/14/20 00:48 98.4 F 119 H 16 125/75 H 98 General: Well nourished, Well developed, No Acute Distress Head: Normocephalic, Atraumatic Eyes: Perrl, EOMI ENT: Moist mucous membranes, No rhinorrhea Neck: Supple, Nontender Cardiovascular: Regular rate, Regular rhythm, No murmurs Respiratory: No distress, CTA bilaterally, Chest nontender Abdomen: Soft, Nontender, Nondistended, Normal bowel sounds Back: Nontender, Normal Inspection Extremities: Nontender, No edema Skin: Normal color, No rash Neurological: Alert, Oriented x3, Cranial nerves II-XII grossly intact, Normal Strength, Normal Sensation Psychological: Normal affect, Normal Mood Diagnostic/Tx/Re-eval - Medical Decision Making Resting comfortably. Lab work obtained. Given IV fluids and Zofran. No longer having diarrhea. Declined coronavirus testing. Lab work shows nothing acute including electrolytes in . Patient felt much better after treatment. Also was given Phenergan. Symptoms are resolved. Will be given Phenergan and Zofran for home. At this time I feel this is stomach flu viral related versus food poisoning. To follow-up as an outpatient return if she worsens. I do not feel she needs imaging ED Disposition - Plan for ED Patient: Disposition: Home or Assisted Living Diagnosis: Vomiting and diarrhea Instructions: ED Food Poison Or Gastroenteritis Prescriptions: proMETHazine tablet [Phenergan] 25 mg PO Q6H PRN PRN #10 tab PRN Reason: Nausea Transmission Status: Received by [facility] Ondansetron [Zofran Odt] 8 mg PO Q8H PRN PRN #20 tab PRN Reason: Nausea Transmission Status: Received by [facility] Referrals: Stephanie Freed MD [Primary Care Provider] -
[2020-10-14] MEDS: 0.9% Normal Saline 1,000 ML 1000 ML IV (01:22)
[2020-10-14] MEDS: Ondansetron 4 MG/2 ML Vial IV (01:23)
[2020-10-14 01:44] LABS: Internal QC Validated? YES +Cl - CLEAR BKGD; Pregnancy, Serum, hCG Quali. NEGATIVE Negative
[2020-10-14 01:47] LABS: Anion Gap 7 (5-15); BUN 7 mg/dL (7-18); BUN/Creat Ratio 11.3 RATIO (10-20); Calcium,Total 10.1 mg/dL (8.5-10.1); Chloride 106 mmol/L (98-107); Creatinine, Serum 0.62 mg/dL (0.55-1.02); EST Glomerular Filtration Rate 121 mL/min (>60); Est Glom Filt Rate - Afr Amer 147 mL/min (>60); Estimated Creatinine Clearance 106.84 ml/min; Glucose 100 mg/dL (74-106); Potassium 3.4 mmol/L (3.5-5.1); Sodium Level 142 mmol/L (136-145)
[2020-10-14] MEDS: proMETHazine 25 MG/ML Syringe 12.5 MG IV (02:01)
[2020-10-14 02:49] VITALS: BP 143/88; PULSE 108; RESP 16; TEMP 37.2
== END 2020-10-14 02:50 | disposition home or self-care (01) ==
PROVIDERS: Emergency Provider Emergency Medicine; PCP Family Medicine
DX: R11.2 Nausea with vomiting, unspecified (principal); R19.7 Diarrhea, unspecified; Z79.899 Other long term (current) drug therapy
CPT/HCPCS: 80048; 84703; 96361; 96374; 96375; 99283; J7030; J2405

== ENCOUNTER 2021-08-16 05:48 | Day surgery (SDC) | payer BC, SELFPAY ==
[2021-08-14 16:11] LABS: Hematocrit 42.7 % (37-47); Hemoglobin 14.1 g/dL (12.0-15.0); Mean Corpuscular Volume 90.9 fL (81-99); Mean Platelet Vol. 13.2 fl (6.2-12.0); Platelet Count 217 K/mm3 (150-450); RBC Distribution Width CV 12.6 % (11.6-14.6); RBC Distribution Width SD 42.4 fl (35.1-43.9); White Blood Count 9.2 K/mm3 (4.4-11.0)
[2021-08-14 16:18] LABS: International Normalized Ratio 1.1; Prothrombin Time (Protime)PT. 13.4 SECONDS (11.7-14.9)
[2021-08-14 16:19] LABS: Partial Thromboplast Time 31.7 Seconds (24.1-36.2)
[2021-08-16] VITALS (14 sets, daily range): BP systolic 92–110; BP diastolic 46–68; PULSE 93–146; RESP 14–18; TEMP 36.1–37.1; O2SAT 98–100; BMI 23.5
--- NOTE | 2021-08-16 | HYST_PTH ---
PATIENT: JOSEPH BAUTISTA LOC: [facility] U#:[id number] AGE/SX: 30/F ROOM: RE08/16/[address]: Dr. Birgit Beckett MD : 1990 BED: DIS: 08/16/2021 SPEC #: [id number] RECD: 08/16/21 14:00 STATUS: SHARMILA BARTLETTTana #: [id number] ELIZABETH: 08/16/21 00:[address]: Birgit Guevara DEPT: SURGICAL PATHOLOGY RECD BY: Segundo Wilburn ENTERED: 08/17/21 09:10 SP TYPE: HYSTERECT OTHR DR: Dr. Stephanie Freed MD Tissues: A - Uterus, NOS B - Perineum, NOS Procedures: Surgery Specimen Level IV Surgery Specimen Level V HEADER OPERATION: ERAS, hysterectomy, TLH, salpingectomy, cystoscopy PRE-OP DIAGNOSIS: Dyspareunia, endometriosis TISSUE SUBMITTED: A ? Cervix, uterus and bilateral fallopian tubes, B ? Anterior cul-de-sac endometriosis MICROSCOPIC DIAGNOSIS A. Uterus, cervix, bilateral fallopian tubes, vaginal hysterectomy and bilateral salpingectomy: Cervix ? moderate chronic cystic cervicitis. Endometrium ? secretory endometrium. Myometrium - no pathologic diagnosis. Bilateral fallopian tubes - no pathologic diagnosis. B. Anterior cul-de-sac, biopsy: A fragment of dense fibroconnective tissue with reactive changes. Negative for endometriosis. See comment. SJ:ngoc 08/20/2021 COMMENT Clinical correlation and appropriate follow up are necessary. MICROSCOPIC DESCRIPTION Slides are reviewed. GROSS DESCRIPTION A - Received in fixative is one container labeled with the patient's name and designated cervix, uterus, bilateral fallopian tubes. The specimen consists of a hysterectomy specimen consisting of uterus with cervix and attached bilateral fallopian tubes. The uterus with cervix weighs 78 gm and measures 7.5 x 6 x 4 cm. The serosal surface is newman, glistening and unremarkable. The ectocervical mucosa shows focal erosion. The external os is oval in contour. The endocervical canal measures 2.5 cm in length and the endocervical mucosa is newman, glistening and unremarkable. The triangular endometrial cavity measures 4.5 cm in length and up to 2.5 cm in width. The endometrium is newman, glistening without any mass lesion and measures up to 0.3 cm in thickness. Sections of the uterine wall do not reveal any mass lesion and it measures 1.5 cm in thickness. The right fallopian tube measures 6.5 cm in length and 0.5 cm in diameter. The fimbrial end is identified. Sections reveal unremarkable cut surfaces. The left fallopian tube measures 5 cm in length and 0.5 cm in diameter. It is similar appearance to right. Business Intelligence Developer sections are submitted in eight cassettes as follows: 1 - anterior cervix, 2 - posterior cervix, 3 & 4 - anterior uterine wall, 5 & 6 - posterior uterine wall, 7 ? right fallopian tube, 8 ? left fallopian tube. B - Received in fixative is one container labeled with the patient's name and designated anterior cul-de-sac endometriosis. The specimen consists of a piece of newman-pink soft tissue measuring 1.5 x 0.3 x 0.2 cm. The entire specimen is submitted in one cassette. / SJ:ngoc 08/17/21 TC:5 CPT: 49764, 82642
[2021-08-16 06:10] LABS: Internal QC Validated? YES +Cl - CLEAR BKGD; Pregnancy, Urine Negative Negative
[2021-08-16 06:29] LABS: Magnesium 2.4 mg/dL (1.6-2.6)
[2021-08-16] MEDS: dexAMETHasone 10 MG/ML Vial 8 MG IV (06:32)
[2021-08-16] MEDS: Lactated Ringers 1,000 ML 40 ML IV (06:34)
[2021-08-16] MEDS: Heparin Injection (Vial) 5,000 UNIT/ML VIAL 5000 UNIT SC (06:52)
[2021-08-16] MEDS: Acetaminophen 500 MG Tablet 1000 MG PO (06:58)
[2021-08-16] MEDS: Celecoxib 200 MG Capsule 400 MG PO (07:19)
[2021-08-16] MEDS: Gabapentin 600 MG Tablet PO (07:19)
--- NOTE | 2021-08-16 07:22 | PCM.HP.BLA ---
History and Physical Date of Admission: 08/16/21 Surgical History and Physical Date: 08/14/2021 Name: JOSEPH BAUTISTA Age: 30 Date of : 1990 Joseph Bautista, a 30 year old female 1 0 0 0 1, presents for ERAS TLH, bilateral salpingectomy on August 16, 2021 at 12:30. -- Patient is scheduled for TLH, bilateral salpingectomy for persistent dysmenorrhea and chronic pelvic pain in between periods, known hx endometriosis and presumed adenomyosis. She had laparoscopy with diagnosis and resection of endometriosis in 2018 as well as negative GI evaluation. She was seen at [facility] pelvic [facility] center, started pelvic floor therapy with improvement of dyspareunia. She has not felt well on hormonal control in the past and desires definitive management. MEDICATIONS HISTORY: Current medications prescribed by our practice are: 1. Zofran 4 mg tablet, 1 PO TID and PRN Patient is also takin. vitamin A 10,000 unit capsule, 1 PO QD ALLERGIES: Ortho Tri-Cyclen (28), Severe nausea & vomiting, Bromocriptine and Vomiting Infections - Chicken pox Illnesses - mild heart murmur, h/o HSV Accidents - None Hospitalizations - Childbirth GERD; Review of Systems: GENERAL - Denies fever, or chills SKIN - Denies skin changes EYES - Denies visual changes EARS - Denies difficulty hearing NOSE - Denies nasal congestion or bleeding MOUTH - Denies sore throat or difficulty swallowing NECK - Denies pain or swelling RESPIRATORY - Denies shortness of breath or wheezing CARDIOVASCULAR - Denies palpitations or chest pain GASTROINTESTINAL - nausea GENITOURINARY - painful menses MUSCULOSKELETAL - Denies joint or muscle pain NEUROLOGICAL - Denies localized numbness or weakness PSYCHIATRIC - Denies depression or anxiety ENDOCRINE - Denies heat or cold intolerance, weight loss or gain HEMATO-IMMUNOLOGIC - Denies excesive bleeding with cuts SOCIAL HISTORY: Alcohol Use - RARELY Smoking - denies smoking Diet - balanced Diet Lifestyle - Exercise - active work Seat Belt Use - always 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 Job Description - [employer] Illicit Drug Use - denies use of street drugs Sexual Activity - Residence - owns a home Hours Worked - 20-30 hrs per week Spouse-Sig Other Name - Jourdan Spouse-Sig 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 11/26/2018 Diagnostic Laparoscopy, surgical treatment of endometriosis with peritoneal biopsy ; Birgit Beckett MD - 2. Endoscopy, 2019 ; Dr Brown - 3. [facility] Teeth Removal ; - PHYSICAL EXAM BP- 100/62 Sitting, Right arm, regular cuff Temp- 98.6 Taken Orally Weight- 128.29327 lbs Height- 61.5 inch BMI:[id number] CONSTITUTIONAL - NAD, well nourished, and well developed SKIN - No rash, lesions, or ulcers HEENT - normocephalic, atraumatic, sclerae anicteric NECK - No nodes, no nuchal rigidity and thyroid normal size and texture LUNGS - CTA x2 without wheezes, crackles or rales CARDIAC - Regular rate and rhythm without rubs, murmurs, or gallops ABDOMEN - Without hepatosplenomegaly, distention, masses, rebound, or guarding; normal bowel sounds; no hernias NEUROLOGICAL - normal gait, normal balance, normal motor PSYCHIATRIC - A and O to time, place, person, mood and affect External Genitial Vagina - non-tender without lesions Urethra/Urethral Meatus - non-tender Bladder - non-tender Vagina - vaginal tran are pink and moist without loss of rugae and no evidence of atropy Cervix - uterosacral tenderness, has normal size and features without evident lesions Uterus - exam limited by pelvic painfulness Adnexa - unable to assess ASSESSMENT/PLAN: 1. Dyspareunia, Endometriosis Of Uterus, Endometriosis, Unspecified and Pelvic And Perineal Pain Chronic pelvic pain - suspect adenomyosis Plan for TLH, bilateral salpingectomy Procedural r/b/i/a reviewed - pt desires to proceed Discussed anticipated oupatient hospital course, recovery and restrictions postop Consents signed and reviewed, preop labs ordered Pt given opportunity to ask questions and questions answered to her satisfaction
[2021-08-16] MEDS: Cefazolin 2 GM in 0.9% Normal Saline 100 ML IV (07:35)
[2021-08-16 07:56] LABS: Bedside Glucose 150 mg/dL (70-110)
[2021-08-16] MEDS: Vasopressin 20 UNITS/ML Vial (08:10)
[2021-08-16] MEDS: Lubricating Jelly 60 GM Tube 30 GM TOPICAL (08:15)
[2021-08-16] MEDS: Bupivacaine Mpf 0.5% 30 ML VIAL (10:59)
--- NOTE | 2021-08-16 11:00 | OP.PCM_ITS ---
Problems Associated Problem List Diagnoses (1) Endometriosis determined by laparoscopy: (2) Chronic pelvic pain in female: (3) Adenomyosis: Report of Operation Date of Procedure: 08/16/21 Pre-Operative Diagnosis: 1. Chronic pelvic pain 2. Endometriosis Post-Operative Diagnosis: 1. Chronic pelvic pain 2. Endometriosis Surgery/Procedure Performed:: 1. Total laparoscopic hysterectomy 2. Bilateral salpingectomy 3. Cystoscopy Description of Surgical Findings:: Normal-appearing uterus, tubes and ovaries bilaterally. Functional left ovarian cyst. Minimal endometriosis in the anterior cul-de-sac. Surgeon: Birgit Guevara computer sciences professor: Latoya Gr Type of Anesthesia: General and Local Anesthesiologist: Enio oMrris Specimen's removed: Uterus, bilateral tubes Left anterior cul-de-sac endometriosis Normal appendix Estimated Blood Loss (mL): 350 Fluids Replaced: 2000 mL Description of Procedure: Indications: 30-year-old para 1 with a history of chronic pelvic pain, dysmenorrhea and endometriosis. She had previously not tolerated hormonal control and underwent laparoscopy confirming endometriosis with short-term relief. She also completed pelvic floor therapy, however had significant pain refractory to treatment concerning for adenomyosis. She was counseled regarding additional management options and opted to proceed with hysterectomy for presumed adenomyosis and, bilateral salpingectomy. Procedure: The patient was brought to the operating room and sinus performed. She is placed in the dorsal supine position and induced under general anesthesia and intubated. Examination under anesthesia was performed. The abdomen and perineum were prepped and draped in sterile fashion Smith catheter was placed into the bladder. The patient was placed in the high lithotomy speculum placed vaginally and cervix grasped the anterior cervical lip using a single-tooth tenaculum. 20 cc of dilute vasopressin was injected circumferentially in the cervix (20 units in 100 cc normal saline). The uterus sounded to 8 cm, the tenaculum removed and an AdvincBranchOut uterine manipulator was placed and secured. The patient was placed into low lithotomy and attention turned to the abdomen. An inferior umbilical incision was made using a scalpel. A Veress needle was introduced with successful hanging drop test and no aspirate and abdominal entry pressure less than 5 mmHg. The abdomen was insufflated to 15 mmHg. The Veress needle was removed and a 5 mm port was placed at this site under laparoscopic guidance. Bilateral tap block was performed using quarter percent Marcaine. Under transillumination incisions were made in the right and left lower quadrants and 5 mm ports introduced at the sites. The abdomen and pelvis were i nspected. With normal appearing bilateral tubes, ovaries and uterus. There was a small area of endometriosis in the left anterior cul-de-sac. I proceeded with left salpingectomy transecting the tube from the mesosalpinx following electrocoagulation using the LigaSure device. The LigaSure was used for all electrocoagulation unless otherwise noted. The left round ligament was electrocoagulated and transected. The anterior broad ligament was opened, the uterine vessels were skeletonized, the ureter visualized and left bladder flap created. The left utero-ovarian ligament was electrocoagulated and transected also using the LigaSure and the posterior broad ligament opened. The left uterine vessels were electrocoagulated and cut. Attention was turned to the right and right salpingectomy performed followed by isolation of the round ligament with opening of the anterior broad ligament, skeletonization of the uterine vessels and completion of the bladder flap from the right side. The right ureter was visualized deep to the uterine vessels. The right utero- ovarian ligament was electrocoagulated and transected and the posterior broad ligament opened. The right uterine vessels were electrocoagulated and transected. The bladder flap was further developed to reveal the endopelvic fascia. The vaginal cuff ring was insufflated. A posterior colpotomy was performed using the LigaSure L-hook electrocautery and continued circumferentially along the cuff ring. The uterus was, cervix, bilateral tubes were removed through the vagina with the manipulator. A ABBY suction reservoir wa s placed vaginally and attention again returned to the abdomen. During this time there have been brisk bleeding from the posterior peritoneum into the abdomen. The vaginal cuff was reapproximated laparoscopically with incorporation of the anterior and posterior pelvic peritoneum using 0 V-Loc with hemostasis obtained. Anterior cul-de-sac peritoneum with an endometriotic implant was excised using electrocoagulation. Patient was placed into high lithotomy and cystoscopy performed with bilateral ureteral reflux noted and bladder wall without defects. Cystoscopy was completed. Attention was turned to the abdomen again laparoscopy was performed. The cuff suture was cut and needle removed. There was excellent hemostasis. The abdomen was desufflated. The ports were removed from the abdomen and incisional sites closed using 4-0 Monocryl by the TOP AND TRIM WORKER under my supervision. Steri-Strips and OpSite dressing were placed over the incisions. The patient was repositioned into dorsal supine, awakened, extubated and transferred to the recovery room without complication. Sponge and needle counts were correct x2. Complications None Admit VTE Documentation VTE Present on Admission: No VTE Mechan Device Prophylaxis: SCD's VTE Pharm Prophylaxis ordered?: Yes
--- NOTE | 2021-08-16 11:29 | PCM.DC ---
Discharge Instructions Diet Discharge Diet: No restrictions Activity Discharge Activity: Return to Normal Activity, May Not Drive (fo 5-7 days), May Shower and - May resume sexual activity in: 8 weeks Lifting Restrictions: 10 lb Additional Activity Instructions:: Avoid pushing/pulling heavy objects Dressing / Incision Call your doctor if your incision/area has: Continuous Slow Oozing, Sudden Increased Bleeding, Increased Pain/ Swelling, Increased Redness, Foul Smelling Discharge and Swelling at the incision site Call your doctor if you observe: Inability to urinate, Inability to have a bowel movement, Shortness of breath, Chest pain, Calf discomfort, Uncontrolled pain and - (Fever > 100.4) Remove Dressing in: 2 days Cleanse incision/area with: Soap & Water Follow Up Care Please Follow Up With: Birgit Guevara MD When: 5-7 days Test Results: Test results from this visit will be discussed in further detail at your follow-up appointment, if applicable. Discharge Plan Admission Primary Reason for Your Visit: Hysterectomy, Tube removal Attending Provider: Birgit Guevara Primary Care Provider: Stephanie Freed Instructions Patient Instructions: After Laparoscopic ... Discharge Orders/Prescriptions Prescriptions: New oxycodone 5 mg capsule 5 mg PO Q6H PRN (Reason: severe pain (scale score 7-10)) 7 Days Qty: 20 RF: 0 ibuprofen 600 mg tablet 600 mg PO Q8H PRN (Reason: pain) Qty: 30 RF: 0 Continued ascorbic acid (vitamin C) [Vitamin C] 1,000 MG tablet 500 mg PO DAILY RF: 0 ondansetron 4 MG tablet 4 mg PO Q8H PRN PRN (Reason: Nausea) Qty: 10 RF: 0 vitamin A 2,400 mcg Capsule 2,400 mcg PO DAILY RF: 0 pantoprazole 40 mg Tablet,Delayed Release (Dr/Ec) 40 mg PO DAILY RF: 0 zinc 22 mg Tablet 22 mg PO DAILY RF: 0 cholecalciferol (vitamin D3) [Vitamin D3] 125 mcg (5,000 unit) Tablet 125 mcg PO DAILY RF: 0 diphenhydramine HCl [Sleep Aid (diphenhydramine)] 25 mg Capsule 25 mg PO QHS RF: 0 Referrals / Follow Up: Stephanie Freed MD [Primary Care Provider] - Disposition Disposition (needs filled in before D/C Order can be placed): Home, Self Care
[2021-08-16] MEDS: proMETHazine 25 MG Tablet PO (15:02)
--- NOTE | 2021-08-16 15:04 | SUR.PHASEII ---
void in RR. Imani pad changed. upon standing patient noted vaginal bleeding. changed pad. instructed patient to inform doctor is bleeding is > 1 imani pad in 1 hour.
== END 2021-08-16 15:59 | disposition home or self-care (01) ==
LOC: SDC 05:49 → AC 05:50
PROVIDERS: Anesthesiology; PCP Family Medicine; Referring Provider Obstetrics & Gynecology; Visit Provider Obstetrics & Gynecology
PROC: 0UT94ZZ Resection of Uterus, Percutaneous Endoscopic Approach (ICD-10-PCS; CPT 58571; principal; 2021-08-16 07:10)
DX: N80.3 Endometriosis of pelvic peritoneum (principal); N80.0 Endometriosis of uterus; N83.202 Unspecified ovarian cyst, left side; Z20.822 Contact with and (suspected) exposure to COVID-19; R10.2 Pelvic and perineal pain; G89.29 Other chronic pain; K21.9 Gastro-esophageal reflux disease without esophagitis; Z79.899 Other long term (current) drug therapy
CPT/HCPCS: 00840; 58571; 58662; 36415; 81025; 82962; 83735; 85027; 85610; 85730; 86850; 86900; 86901; 87426; 88305; 88307; J7120; J2405; J3475

== ENCOUNTER → 2023-01-22 | Outpatient (CLI) | payer BC, SELFPAY ==
--- NOTE | 2023-01-22 10:18 | US_ITS ---
STUDY: ABDOMINAL ULTRASOUND - RIGHT UPPER QUADRANT REASON FOR VISIT: Female, 32 years old RUQ PAIN TECHNIQUE: Ultrasound evaluation of the right upper quadrant was performed with real-time and static jensen-scale imaging. TECHNICAL QUALITY: Adequate. COMPARISON: None. FINDINGS: Liver: The liver measures 16 cm. There is normal echogenicity of the liver. The bile ducts are within normal limits. There is hepatic color flow. The direction of portal flow is hepatopetal. There is no demonstrated mass lesion. Gallbladder: Normal distended gallbladder. The gallbladder wall measures 1 mm. There is a negative sonographic Ramos''s sign. There is no pericholecystic fluid. There are no gallstones. Common Bile Duct (C.B.D.): The common bile duct measures 2 mm. Pancreas: Normal size of the head, body and tail of the pancreas. There is normal echogenicity of the pancreas. There is no demonstrated pancreatic mass or cyst. Right Kidney: Normal size of the right kidney. The right kidney measures 9.8 x 5.2 x 3.9 cm. Normal renal cortex. The right cortex measures cm. There is no demonstrated renal mass or cyst. There is no right hydronephrosis. US/Abdomen Limited IMPRESSION: Normal right upper quadrant ultrasound examination. Electronically Signed: Elmo Reese MD at 15:48 EDT ,
== END | disposition home or self-care (01) ==
LOC: US 10:17
PROVIDERS: PCP Family Medicine; Referring Provider Family Medicine; Visit Provider Family Medicine
DX: R10.11 Right upper quadrant pain (principal)
CPT/HCPCS: 76705

== ENCOUNTER 2023-01-27 18:53 | Emergency (ER) | payer BC, SELFPAY ==
[2023-01-27 18:54] VITALS: BP 147/85; PULSE 130; RESP 14; TEMP 37.1; O2SAT 100; BMI 24.5
--- NOTE | 2023-01-27 19:00 | EKG12_ITS ---
Test Reason : DYSRHYTHMIA Blood Pressure : / mmHG Vent. Rate : 125 BPM Atrial Rate : 125 BPM P-R Int : 164 ms QRS Dur : 066 ms QT Int : 294 ms P-R-T Axes : 054 066 038 degrees QTc Int : 424 ms Sinus tachycardia Otherwise normal ECG Confirmed by NA CEDEÑO ([id number]), development editor JAISON LOZANO ([id number]) on 01/29/2023 1:18:13 PM Referred By: SCAR Confirmed By:NA CEDEÑO
--- NOTE | 2023-01-27 19:14 | EX.ED.DYSGE1 ---
HPI <HEIDE Padron - Last Filed: 01/27/23 20:25> History of Present Illness Chief Complaint: Palpitations Narrative Narrative: 32-year-old female states about 30 minutes prior to arrival she was sitting and developed sudden onset heart racing felt mildly short of breath. No chest pain. No nausea vomiting or diaphoresis. She states she is otherwise felt fine this week. She has occasionally had a brief heart flutter or what felt like a skipped beat but nothing like this. She states that [facility] they noticed a heart murmur and getting echo and told her one of her valves was bicuspid instead of tricuspid but that it was no big concern. She has no other cardiopulmonary history. She denies smoking, alcohol or drug use. She drinks 1 cup of caffeinated soda a day. She has no history of DVT/PE or risk factors. PFSH <HEIDE Padron - Last Filed: 01/27/23 20:25> [facility] Medical History Alcohol use Back pain Dietary restriction Gastric reflux History of echocardiogram Non-smoker Home Medications ascorbic acid (vitamin C) 1,000 mg tablet (Vitamin C) 500 mg PO DAILY 11/19/18 [History Last Taken Unknown] ondansetron 4 mg disintegrating tablet 4 mg PO Q8H PRN PRN Nausea #10 tabs 05/24/19 [Rx Last Taken Unknown] cholecalciferol (vitamin D3) 125 mcg (5,000 unit) tablet (Vitamin D3) 125 mcg PO DAILY 08/09/21 [History Last Taken Unknown] diphenhydramine HCl 25 mg capsule (Sleep Aid (diphenhydramine)) 25 mg PO QHS 08/09/21 [History Last Taken Unknown] pantoprazole 40 mg tablet,delayed release 40 mg PO DAILY 08/09/21 [History Last Taken 08/16/21] vitamin A 2,400 mcg capsule 2,400 mcg PO DAILY 08/09/21 [History Last Taken Unknown] zinc 22 mg tablet 22 mg PO DAILY 08/09/21 [History Last Taken Unknown] ibuprofen 600 mg tablet 600 mg PO Q8H PRN pain #30 tabs 08/16/21 [Rx Last Taken Unknown] oxycodone 5 mg capsule 5 mg PO Q6H PRN severe pain (scale score 7-10) 7 days #20 caps 11/04/21 [Rx Last Taken Unknown] Allergy/AdvReac Type Severity Reaction Status Date / Time No Known Allergies Allergy Verified 01/27/23 18:54 Surgical History (Updated 08/09/21 @ 12:58 by Veronica Bhardwaj) History of esophagogastroduodenoscopy (EGD) Hx of laparoscopy Hx of wisdom tooth extraction Social History Smoking Status: Never smoker ROS <HEIDE Padron - Last Filed: 01/27/23 20:25> ROS ED ROS Narrative Constitutional: Negative for fever, chills, malaise. CVS: Positive for palpitations. Negative for chest pain or syncope. Respiratory: Negative for shortness of breath, cough. GI: Negative for abdominal pain, nausea, vomiting. Neuro: Negative for headache. EXAM <HEIDE Padron - Last Filed: 01/27/23 20:25> Physical Exam Narrative Exam Narrative: CONST: Patient sitting in no acute distress. EYES: Normal inspection. ENT: Normal inspection, moist mucous membranes. NECK: Normal inspection. RESP: No respiratory distress, CTAB. CVS: Rapid but regular rhythm, no murmur, no gallop. ABD: Soft and nontender, no guarding or rebound, nondistended. SKIN: Color normal, no rash, warm, dry, intact. EXTREMITIES: Normal appearance, no pedal edema. NEURO: Oriented x4. PSYCH: Normal affect. Const Vital Signs: 01/27/23 18:54 01/27/23 19:08 01/27/23 20:16 Temperature 98.8 F Temperature Source Temporal Pulse Rate 130 H 102 H Respiratory Rate 14 18 Respiratory Effort Normal Non-Labored Respiratory Pattern Normal Blood Pressure 147/85 H 122/80 H Blood Pressure Mean 105 94 Pulse Ox 100 Oxygen Delivery Method Room Air <Dr. Nii Ogden MD - Last Filed: 01/27/23 19:46> Physical Exam Const Vital Signs: 01/27/23 18:54 01/27/23 19:08 01/27/23 20:16 Temperature 98.8 F Temperature Source Temporal Pulse Rate 130 H 102 H Respiratory Rate 14 18 Respiratory Effort Normal Non-Labored Respiratory Pattern Normal Blood Pressure 147/85 H 122/80 H Blood Pressure Mean 105 94 Pulse Ox 100 Oxygen Delivery Method Room Air MDM <HEIDE Padron - Last Filed: 01/27/23 20:25> MDM MDM Narrative Medical decision making narrative: Patient presents with sudden onset palpitations and mild shortness of breath. She appears well and nontoxic. Heart rates in the 130s in sinus rhythm. Other vitals unremarkable. She speaking full sentences in no distress. Heart is rapid but regular with no murmurs. Lungs clear. Abdomen soft nontender. No lower extremity edema or calf tenderness. With persistently high heart rate will be given IV fluids and blood work checked. CBC is within normal limits. BMP shows potassium of 3.4 otherwise normal. She was given a small oral potassium dose. D-dimer and troponin are both negative. EKG showed sinus tachycardia with no ectopy or ischemic changes. TSH also normal. After liter of IV fluids patient's heart rate is 100 and normal sinus rhythm. I feel she can be discharged to follow-up with her primary care doctor. Discussed that she may need a Holter monitor if symptoms continue. She should return for any new or worsening symptoms and was discharged in stable condition. Differential for palpitations: Dysrhythmia, dehydration, electrolyte abnormality, PE, anxiety I have personally performed a face to face assessment of the patient and have reviewed the NIGEL Note. I performed a substantive portion of the visit including all aspects of the following. My hare findings include: History is 32-year-old female no seen past medical history other than a heart murmur. Has episodes of palpitations accelerated heart rate. No history of DVT or PE or risk factors. No history of thyroid disease. No history of otherwise cardiac disease. Exam is 32-year-old female no acute distress. Vital signs stable while in the room her heart rate is a sinus tachycardia 115. Pulse ox 100% on room air no hypoxia. H EENT exam unremarkable. Neck nontender. No thyromegaly. No lymphadenopathy. Lungs clear to auscultation bilaterally. Heart tachycardic rate about 115. Abdomen soft nontender. Moving all 4 extremities. Equal symmetrical radial pulses. Calves are nontender without edema or cords. Neurologic exam normal. Benign exam with mild tachycardia. Medical Decision Making [32-year-old female with a tachycardia. Cardiac work-up will be pursued.] Other additions or changes: [None] Lab Data Attestation: I reviewed the patient's lab results. Labs: Laboratory Results - last 24 hr 01/27/23 01/27/23 01/27/23 19:23 19:23 19:23 WBC 8.9 RBC 4.75 Hgb 14.0 Hct 42.3 MCV 89.1 MCH 29.5 MCHC 33.1 RDW Std Deviation 43.4 RDW Coeff of Epi 13.3 Plt Count 227 MPV 12.4 H Immature Gran % (Auto) 0.300 Neut % (Auto) 62.3 Lymph % (Auto) 28.8 [place] % (Auto) 6.6 Eos % (Auto) 1.6 Baso % (Auto) 0.4 Absolute Neuts (auto) 5.6 Absolute Lymphs (auto) 2.57 Nucleated RBC % 0 D-Dimer Quant (PE/DVT) < 0.27 L Sodium 140 Potassium 3.4 L Chloride 109 H Carbon Dioxide 27.0 Anion Gap 4 L BUN 9 Creatinine 0.70 Estim Creat Clear Calc 92.10 Est GFR (MDRD) Af Amer 127 Est GFR (MDRD) Non-Af 105 BUN/Creatinine Ratio 12.9 Glucose 110 H Calcium 9.0 Troponin I High Sens < 3 L TSH 1.19 Radiography Diagnostic Testing: Clinical Impression(s) from Imaging Studies Chest X-Ray 01/27/23 19:30 IMPRESSION: No radiographic evidence of acute cardiopulmonary disease. Electronically Signed: Tunde Latif MD at 19:46 EDT Reading Location ID and State: [facility] / [place] Tel , Service support , EKG Initial EKG: Attestation: I personally reviewed and interpreted this EKG as follows: Interpretation: No Acute Injury Pattern and Sinus Tachycardia Comments: ED attending interpretation shows sinus tachycardia at 125 bpm, no ectopy or acute ischemia changes <Dr. Nii Ogden MD - Last Filed: 01/27/23 19:46> [facility] MDM Narrative Medical decision making narrative: Patient presents with sudden onset palpitations and mild shortness of breath. She appears well and nontoxic. Heart rates in the 130s in sinus rhythm. Other vitals unremarkable. She speaking full sentences in no distress. Heart is rapid but regular with no murmurs. Lungs clear. Abdomen soft nontender. No lower extremity edema or calf tenderness. With persistently high heart rate will be given IV fluids and blood work checked. I have personally performed a face to face assessment of the patient and have reviewed the NIGEL Note. I performed a substantive portion of the visit including all aspects of the following. My hare findings include: History is 32-year-old female no seen past medical history other than a heart murmur. Has episodes of palpitations accelerated heart rate. No history of DVT or PE or risk factors. No history of thyroid disease. No history of otherwise cardiac disease. Exam is 32-year-old female no acute distress. Vital signs stable while in the room her heart rate is a sinus tachycardia 115. Pulse ox 100% on room air no hypoxia. H EENT exam unremarkable. Neck nontender. No thyromegaly. No lymphadenopathy. Lungs clear to auscultation bilaterally. Heart tachycardic rate about 115. Abdomen soft nontender. Moving all 4 extremities. Equal symmetrical radial pulses. Calves are nontender without edema or cords. Neurologic exam normal. Benign exam with mild tachycardia. Medical Decision Making [32-year-old female with a tachycardia. Cardiac work-up will be pursued.] Other additions or changes: [None] History & Record Review Discussion w/independent historian: Patient Lab Data Lab results narrative: CBC normal. White count 8.9. H&H 14 and 42. Portable chest x-ray shows no acute abnormality. Normal cardiac silhouette. Labs: Laboratory Results - last 24 hr 01/27/23 01/27/23 01/27/23 19:23 19:23 19:23 WBC 8.9 RBC 4.75 Hgb 14.0 Hct 42.3 MCV 89.1 MCH 29.5 MCHC 33.1 RDW Std Deviation 43.4 RDW Coeff of Epi 13.3 Plt Count 227 MPV 12.4 H Immature Gran % (Auto) 0.300 Neut % (Auto) 62.3 Lymph % (Auto) 28.8 [place] % (Auto) 6.6 Eos % (Auto) 1.6 Baso % (Auto) 0.4 Absolute Neuts (auto) 5.6 Absolute Lymphs (auto) 2.57 Nucleated RBC % 0 D-Dimer Quant (PE/DVT) < 0.27 L Sodium 140 Potassium 3.4 L Chloride 109 H Carbon Dioxide 27.0 Anion Gap 4 L BUN 9 Creatinine 0.70 Estim Creat Clear Calc 92.10 Est GFR (MDRD) Af Amer 127 Est GFR (MDRD) Non-Af 105 BUN/Creatinine Ratio 12.9 Glucose 110 H Calcium 9.0 Troponin I High Sens < 3 L TSH 1.19 Radiography Chest X-Ray - ED: 1 View, Read by ED Physician, Heart, Lungs, Mediastinum, Bony Structures and No Acute Disease Diagnostic Testing: Clinical Impression(s) from Imaging Studies Chest X-Ray 01/27/23 19:30 IMPRESSION: No radiographic evidence of acute cardiopulmonary disease. Electronically Signed: Tunde Latif MD at 19:46 EDT Reading Location ID and State: [facility] / [place] Tel , Service support , Chest x-ray, portable, single view, interpreted by myself shows no acute abnormality. Normal cardiac silhouette. Normal lung andrews. No effusions. No bony abnormalities. No infiltrates. Rhythm Strip Rhythm Strip: Sinus Tach Rate: 125 Ectopy: None Discharge Plan Triage Chief Complaint: Palpitations ED Midlevel Provider: Claudia Clayton ED Provider: Nii Ogden Dx/Rx/DC Orders Clinical Impression: Heart palpitations, Sinus tachycardia Instructions: ED Palpitations Prescriptions: No Action ascorbic acid (vitamin C) [Vitamin C] 1,000 MG tablet 500 mg PO DAILY ondansetron 4 MG tablet 4 mg PO Q8H PRN PRN (Reason: Nausea) Qty: 10 0RF vitamin A 2,400 mcg Capsule 2,400 mcg PO DAILY pantoprazole 40 mg Tablet,Delayed Release (Dr/Ec) 40 mg PO DAILY zinc 22 mg Tablet 22 mg PO DAILY cholecalciferol (vitamin D3) [Vitamin D3] 125 mcg (5,000 unit) Tablet 125 mcg PO DAILY diphenhydramine HCl [Sleep Aid (diphenhydramine)] 25 mg Capsule 25 mg PO QHS oxycodone 5 mg capsule 5 mg PO Q6H PRN (Reason: severe pain (scale score 7-10)) 7 Days Qty: 20 0RF ibuprofen 600 mg tablet 600 mg PO Q8H PRN (Reason: pain) Qty: 30 0RF Primary Care Provider: Stephanie Freed Referrals: Stephanie Freed MD [Primary Care Provider] - Activity Restrictions/Additional Instructions: Today all of your testing looked normal. We also checked your thyroid and blood work that ruled out heart attacks and blood clots. I am not sure what caused your episode of heart racing today. Please follow-up with your primary care doctor or return to the ER for new or worsening symptoms. Disposition Disposition: Home, Self Care
[2023-01-27] MEDS: 0.9% Normal Saline 1,000 ML 999 ML IV (19:24)
[2023-01-27 19:28] LABS: Absolute Lymphocyte Count 2.57 X10^3/uL (0.83-4.51); Absolute Neutrophil Count 5.6 X10^3/uL (2.0-7.7); Basophil# 0.04 X10^3/uL; Basophil% 0.4 % (0-1); Eosinophil# 0.14 X10^3/uL; Eosinophils% 1.6 % (0-5); Hematocrit 42.3 % (37-47); Lymphocyte # 2.57 X10^3/ul (0.83-4.51); Lymphocyte % 28.8 % (19-41); Mean Corp Hgb Conc 33.1 g/dL (32-36); Mean Corpuscular Hgb 29.5 pg (27.0-32.0); Mean Corpuscular Volume 89.1 fL (81-99); Mean Platelet Vol. 12.4 fl (6.2-12.0); Monocyte# 0.59 X10^3/uL; Monocyte% 6.6 % (0-10); NRBC Flagged by Analyzer 0 % (0-5); Neutrophil # 5.55 X10^3/uL (2.7-7.7); Neutrophil % 62.3 % (47-70); Platelet Count 227 K/mm3 (150-450); RBC Distribution Width CV 13.3 % (11.6-14.6); RBC Distribution Width SD 43.4 fl (35.1-43.9); Red Blood Count 4.75 M/mm3 (4.2-5.4); White Blood Count 8.9 K/mm3 (4.4-11.0)
--- NOTE | 2023-01-27 19:30 | RAD_ITS ---
INDICATION: chest pain EXAMINATION/TECHNIQUE: X-RAY - XR Chest 2 Views COMPARISON: None. FINDINGS: LINES/DEVICES: None. LUNGS: No consolidation, edema or effusion. No pneumothorax. MEDIASTINUM AND CARDIOVASCULAR STRUCTURES: Cardiac silhouette not enlarged. Central airways and mediastinal contour are unremarkable. BONES AND SOFT TISSUES: Unremarkable. RAD/Chest PA and Lateral IMPRESSION: No radiographic evidence of acute cardiopulmonary disease. Electronically Signed: Tunde Latif MD at 19:46 EDT ,
[2023-01-27 19:44] LABS: D-Dimer Quantitative (DVT/PE) < 0.27 FEU/ug/m (0.27-0.49)
[2023-01-27] MEDS: Ondansetron 4 MG/2 ML Vial IV (19:49)
[2023-01-27 20:04] LABS: Anion Gap 4 (5-15); BUN 9 mg/dL (7-18); BUN/Creat Ratio 12.9 RATIO (10-20); Chloride 109 mmol/L (98-107); EST Glomerular Filtration Rate 105 mL/min (>60); Est Glom Filt Rate - Afr Amer 127 mL/min (>60); Glucose 110 mg/dL (74-106); Potassium 3.4 mmol/L (3.5-5.1); Sodium Level 140 mmol/L (136-145); Thyroid Stim Hormone (TSH) 1.19 uIU/mL (0.358-3.74); Troponin-I HS < 3 pg/mL (3.0-54.0)
[2023-01-27] MEDS: Potassium Chloride Oral Tablet 20 MEQ PO (20:15)
[2023-01-27 20:16] VITALS: BP 122/80; PULSE 102; RESP 18
[2023-01-27 20:30] VITALS: BP 121/75; PULSE 108
== END 2023-01-27 20:41 | disposition home or self-care (01) ==
PROVIDERS: Physician Assistant; Emergency Provider Emergency Medicine; PCP Family Medicine; Visit Provider Emergency Medicine
DX: R00.2 Palpitations (principal); R06.02 Shortness of breath; R00.0 Tachycardia, unspecified
CPT/HCPCS: 71046; 80048; 84443; 84484; 85025; 85379; 93005; 96361; 96374; 99283; J7030; J2405

== ENCOUNTER → 2023-02-24 | Outpatient (CLI) | payer BC, SELFPAY ==
--- NOTE | 2023-02-24 09:55 | NM_ITS ---
CLINICAL: 32-year-old female with history of abdominal pain. RADIONUCLIDE HEPATOBILIARY SCINTIGRAPHY COMPARISON: Abdominal ultrasound report 01/22/23 FINDINGS: Following the intravenous administration of 5.5 mCi of 99m Tc Mebrofenin, hepatobiliary images reveal: 1. Relatively prompt and homogeneous radiopharmaceutical concentration is noted by a normal sized liver. No parenchymal defects are identified. 2. Gallbladder activity is identified at 15 minutes post radiopharmaceutical administration. 3. Small intestinal tract is observed by 60 minutes following tracer injection. 4. Washout of the radiopharmaceutical by the hepatic parenchyma appears qualitatively normal. NM/Hepatobilliary Imaging IMPRESSION: 1. NORMAL 99m Tc Mebrofenin hepatobiliary imaging examination. A. Visualization of the gallbladder within 60 minutes post radiopharmaceutical administration excludes acute cholecystitis with 97% certitude. (Estelita et al, Nucl Med Rolanda Bettie Press pg. 35, 1980). B. Further evaluation of this individual may be undertaken utilizing CCK augmented hepatobiliary scintigraphy if deemed clinically appropriate. (Yennifer Tobias et al, J Nucl Med 32: 1695, 1990). Electronically Signed: Dameon Joseph, at 23:11 EDT ,
== END | disposition home or self-care (01) ==
PROVIDERS: PCP Family Medicine; Referring Provider Family Medicine; Visit Provider Family Medicine
DX: R10.11 Right upper quadrant pain (principal)
CPT/HCPCS: 78226; A9537

== ENCOUNTER → 2023-10-07 | Outpatient (CLI) | payer BC, SELFPAY ==
--- NOTE | 2023-10-07 09:12 | NM_ITS ---
CLINICAL: 32-year-old female with history of chronic nausea. SOLID PHASE 99m Tc SULFUR COLLOID GASTRIC EMPTYING STUDY COMPARISON: Hepatobiliary scintigraphy study report dated 02/24/2023 FINDINGS: The patient was administered 1.0 mCi of 99m Tc sulfur colloid mixed with egg and consumed per os. Image acquisitions in the anterior-posterior projections were obtained for 230 minutes. There is prompt visualization of the stomach. There is no gastroesophageal reflux identified. First order kinetics are maintained throughout the duration of the acquisitions. The T ? raw data emptying was calculated to be 127.23 minutes, (Normal 65-110 minutes). There is 89% emptying and 11% retention at 230 minutes post meal ingestion. This extrapolates to 93% emptying and 7% retention at 240 minutes post meal ingestion. [place]/Gastric Emptying Study - 4 HR IMPRESSION: 1. There is delayed solid phase gastric emptying compared to normal controls with maintained first order kinetics throughout all components of the examination. (Bret et al, Gastroenterology 77: 75, 1979 Malgela et al, Semin Nucl Med 12: 116, 1980). Electronically Signed: Dameon Joseph DO at 9:37 EST ,
== END | disposition home or self-care (01) ==
PROVIDERS: PCP Family Medicine
DX: R11.2 Nausea with vomiting, unspecified (principal)
CPT/HCPCS: 78264; A9541

== ENCOUNTER 2024-04-13 05:36 | Emergency (ER) | payer BC, SELFPAY ==
[2024-04-13 05:37] VITALS: BP 116/84; PULSE 94; RESP 16; TEMP 36.1; O2SAT 100; BMI 22.3
--- NOTE | 2024-04-13 05:59 | EDS_ITS ---
HPI History of Present Illness Chief Complaint: Nausea/Vomiting/Diarrhea Informant: patient Narrative Narrative: Patient is a 33-year-old female with past medical history of gastroparesis and IBS. She states that she is nauseous frequently secondary to her gastroparesis. She states that she has been taking Phenergan now at nighttime to help with symptoms. She reports she did this as directed last night but woke around 2:30 in the morning with worsening nausea and loose stool. She says that this type of presentation is consistent with exacerbations of her gastroparesis. She denies any fevers or chills chest pain shortness of breath. She denies any kno sick contacts or recent travel outside the country or antibiotic use. She reports that when she gets this way she typically needs IV medication to help control symptoms and therefore presents for evaluation [facility] Medical History Gastroparesis History of echocardiogram Alcohol use Back pain Dietary restriction Gastric reflux Non-smoker Home Medications ?Medication ?Instructions ?Recorded ?Last Taken ?Type promethazine 12.5 mg tablet 12.5 mg PO QHS 04/13/24 Unknown History Allergy/AdvReac Type Severity Reaction Status Date / Time No Known Allergies Allergy Verified 04/13/24 06:15 Surgical History (Updated 04/13/24 @ 05:45 by Raya Yepez) Hx of hysterectomy Hx of wisdom tooth extraction Hx of laparoscopy History of esophagogastroduodenoscopy (EGD) Social History Smoking Status: Never smoker ROS ROS ED Constitutional Constitutional ED: Denies chills or fever(s) ENT ENT ED: Denies sore throat Cardiovascular Cardiovascular: Denies chest pain Respiratory/Chest Respiratory/Chest: Denies cough or dyspnea Gastrointestinal Gastrointestinal: Reports diarrhea and nausea; Denies abdominal pain or vomiting Genitourinary Genitourinary ED: Denies dysuria or hematuria Musculoskeletal Musculoskeletal: Denies myalgias Integumentary Denies rash Neurologic Neurologic: Denies headache(s) Hematologic/Lymphatic Hematologic/Lymphatic: Denies easy bleeding or easy bruising EXAM Physical Exam Const Vital Signs: 04/13/24 05:37 Temperature 96.9 F L Temperature Source Temporal Pulse Rate 94 Respiratory Rate 16 Blood Pressure 116/84 H Blood Pressure Mean 94 Pulse Ox 100 Oxygen Delivery Method Room Air Positive well nourished and well developed General Appearance ED: well developed; Negative for pallor HEENT Reports dry mucous membranes HEENT Narrative: Mucous membranes are dry and tacky without tongue or lip swelling oral lesions or airway edema or compromise No signs of infection noted in the posterior pharynx either Mouth ED: Yes dry mucous membranes Mouth: dry mucous membranes Eyes PERRL and EOMs intact bilaterally General Eye ED: Negative for pale conjunctiva or scleral icterus Neck supple Neck Narrative: No nuchal rigidity or meningeal signs No tracheal deviation or crepitance palpated Resp normal respiratory effort and clear to auscultation bilaterally Cardio regular rate and regular rhythm Rate: other Other Details: Heart is regular rate and rhythm without murmurs rubs or gallops Radial and carotid pulses are equal and symmetric GI non-distended GI Narrative: Abdomen is soft and nondistended with hyperactive bowel sounds. There is mild diffuse pain on palpation without voluntary guarding or rigidity. No pulsatile mass or fluid wave. No increased tympany noted Auscultation: hyperactive bowel sounds Palpation: soft Extremity normal to inspection Neuro oriented x3, CN's II-XII intact bilaterally and no sensory deficits noted Sensorium / Orientation: alert Motor Exam: strength 5/5 throughout Psych mental status grossly normal Skin no rashes or lesions noted and skin turgor normal General Skin Exam: Negative for jaundice or pallor MDM MDM MDM Narrative Medical decision making narrative: Patient presented to the ER with stable vitals and a soft nonsurgical abdomen. She does have a remote history of hysterectomy but there is no distention and she states she has been having loose stool which goes against ileus or bowel obstruction so I felt no need for imaging. With concern that this could be pancreatitis versus biliary colic versus acute cholecystitis versus acute kidney injury or electrolyte abnormality I did elect to perform basic laboratory studies. Labs revealed no clinically significant findings. Patient was given IV fluid as well as Benadryl and IV Reglan. On reevaluation she reports feeling better and her abdomen remains soft and nonsurgical and therefore this appears to be related to her underlying gastroparesis but as she has been rehydrated and symptoms have improved she is otherwise safe for discharge. Lab Data Attestation: I reviewed the patient's lab results. Labs: Laboratory Results - last 24 hr 04/13/24 06:06 WBC 8.2 RBC 4.69 Hgb 14.1 Hct 41.5 MCV 88.5 MCH 30.1 MCHC 34.0 RDW Std Deviation 40.4 RDW Coeff of Epi 12.6 Plt Count 186 MPV 12.4 H Immature Gran % (Auto) 0.400 Neut % (Auto) 74.7 H Lymph % (Auto) 18.2 L [place] % (Auto) 5.7 Eos % (Auto) 0.6 Baso % (Auto) 0.4 Absolute Neuts (auto) 6.1 Absolute Lymphs (auto) 1.49 Nucleated RBC % 0 Sodium 142 Potassium 3.5 Chloride 109 H Carbon Dioxide 27.0 Anion Gap 6 BUN 5 L Creatinine 0.59 Estim Creat Clear Calc 108.27 Est GFR (MDRD) Af Amer 151 Est GFR (MDRD) Non-Af 125 BUN/Creatinine Ratio 8.5 L Glucose 101 Calcium 9.5 Magnesium 2.4 Total Bilirubin 0.30 Direct Bilirubin 0.09 AST 15 ALT 16 Alkaline Phosphatase 53 Total Protein 7.2 Albumin 4.0 Globulin 3.2 Lipase 36 Discharge Plan Triage Chief Complaint: Nausea/Vomiting/Diarrhea ED Provider: Eduardo Frederick Dx/Rx/DC Orders Clinical Impression: Gastroparesis, Mild dehydration Instructions: Gastroparesis, ED Dehydration (Adult) Prescriptions: No Action promethazine 12.5 mg tablet 12.5 mg PO QHS Primary Care Provider: Stephanie Freed Referrals: Stephanie Freed MD [Primary Care Provider] - Activity Restrictions/Additional Instructions: Your workup today revealed no clinically significant findings. Please continue to take your prescribed medication as directed to help control your symptoms from gastroparesis and return to the ER should you have any further concerns Print Language: Kazakh Disposition Disposition: Home, Self Care
[2024-04-13] MEDS: Metoclopramide 10 MG/2 ML Vial IV (06:00)
[2024-04-13] MEDS: DiphenhydrAMINE 50 MG/ML Syringe 25 MG IV (06:00)
[2024-04-13] MEDS: 0.9% Normal Saline (1000mL) 1,000 ML 999 ML IV (06:07)
[2024-04-13 06:23] LABS: Absolute Lymphocyte Count 1.49 X10^3/uL (0.83-4.51); Absolute Neutrophil Count 6.1 X10^3/uL (2.0-7.7); Basophil# 0.03 X10^3/uL; Basophil% 0.4 % (0-1); Eosinophil# 0.05 X10^3/uL; Eosinophils% 0.6 % (0-5); Hematocrit 41.5 % (37-47); Hemoglobin 14.1 g/dL (12.0-15.0); Lymphocyte # 1.49 X10^3/ul (0.83-4.51); Lymphocyte % 18.2 % (19-41); Mean Corpuscular Hgb 30.1 pg (27.0-32.0); Mean Corpuscular Volume 88.5 fL (81-99); Mean Platelet Vol. 12.4 fl (6.2-12.0); Monocyte# 0.47 X10^3/uL; Monocyte% 5.7 % (0-10); NRBC Flagged by Analyzer 0 % (0-5); Neutrophil # 6.13 X10^3/uL (2.7-7.7); Neutrophil % 74.7 % (47-70); Platelet Count 186 K/mm3 (150-450); RBC Distribution Width CV 12.6 % (11.6-14.6); RBC Distribution Width SD 40.4 fl (35.1-43.9); Red Blood Count 4.69 M/mm3 (4.2-5.4); White Blood Count 8.2 K/mm3 (4.4-11.0)
[2024-04-13 06:39] LABS: AST(SGOT) 15 U/L (15-37); Alanine Aminotransfer ALT/SGPT 16 U/L (13-56); Alkaline Phosphatase 53 U/L (45-117); Anion Gap 6 (5-15); BUN 5 mg/dL (7-18); BUN/Creat Ratio 8.5 RATIO (10-20); Bilirubin, Direct 0.09 mg/dL (0.00-0.30); Calcium,Total 9.5 mg/dL (8.5-10.1); Chloride 109 mmol/L (98-107); Creatinine, Serum 0.59 mg/dL (0.55-1.02); EST Glomerular Filtration Rate 125 mL/min (>60); Est Glom Filt Rate - Afr Amer 151 mL/min (>60); Estimated Creatinine Clearance 108.27 ml/min; Globulin 3.2 g/dL (2.2-4.2); Glucose 101 mg/dL (74-106); Lipase 36 U/L (13-75); Magnesium 2.4 mg/dL (1.6-2.6); Potassium 3.5 mmol/L (3.5-5.1); Protein, Total 7.2 g/dL (6.4-8.2); Sodium Level 142 mmol/L (136-145)
[2024-04-13 07:15] VITALS: BP 108/93; PULSE 78; RESP 17; TEMP 36.8; O2SAT 98
== END 2024-04-13 07:15 | disposition home or self-care (01) ==
PROVIDERS: Emergency Provider Emergency Medicine; PCP Family Medicine; Visit Provider Emergency Medicine
DX: K31.84 Gastroparesis (principal); R19.7 Diarrhea, unspecified; E86.0 Dehydration
CPT/HCPCS: 80048; 80076; 83690; 83735; 85025; 99283; J7030

== ENCOUNTER → 2024-07-13 | Outpatient (CLI) | payer BC, SELFPAY ==
--- NOTE | 2024-07-13 09:19 | RAD_ITS ---
PROCEDURE: Upper GI with Small Bowel Follow Through DATE OF EXAMINATION: July 13, 2024.. INDICATION: Female, 33 years old. Nausea. Gastroesophageal reflux. FLUOROSCOPY TIME (if supplied): (3:19) minutes/seconds. 45.4 mGy.. 15 images were submitted. TECHNIQUE: Radiographic and fluoroscopic images of the distal esophagus, stomach, and entire small intestine were obtained following the oral ingestion of barium. COMPARISON: None. FINDINGS: The roofing supervisor film of the abdomen demonstrates a normal bowel gas pattern. There are no abnormal calcifications or organomegaly demonstrated. The visualized osseous structures are normal. Esophagus unremarkable. No evidence of a esophageal mass. No gastroesophageal reflux is seen. The stomach and duodenum are unremarkable. A single contrast small bowel follow through exam demonstrates the small bowel to have no evidence for stricture, ulceration or mass. The transit time is normal at 60 minutes. RAD/Upper GI/w Small Bowel IMPRESSION: 1. Normal single contrast small bowel follow-through exam. Electronically Signed: Kings Siddiqi MD at 13:41 EDT ,
== END | disposition home or self-care (01) ==
LOC: RAD 09:09
PROVIDERS: PCP Family Medicine
DX: R11.0 Nausea (principal); R10.84 Generalized abdominal pain; K59.09 Other constipation; K21.9 Gastro-esophageal reflux disease without esophagitis
CPT/HCPCS: 74246; 74248

== ENCOUNTER 2025-05-27 05:21 | Emergency (ER) | payer BC, SELFPAY ==
[2025-05-27 05:22] VITALS: BP 120/88; PULSE 97; RESP 18; TEMP 36.6; O2SAT 100; BMI 24.6
--- NOTE | 2025-05-27 05:37 | EDS_ITS ---
HPI History of Present Illness Chief Complaint: Dizziness Informant: patient and spouse/S.O. Narrative Narrative: Patient is a 34-year-old female who reports a past medical history of chronic nausea. She states that she takes Phenergan each night. She states she took her medication at bedtime like she normally does. However she awoke this morning and noted when she changed positions she felt dizzy which she describes as having too much to drink. She states with the increased dizzy sensation her nausea worsened but she denied any vomiting. She denies any palpitations. She states there is been no head trauma recently and she denies any family history of brain tumor or aneurysm. However as she is unsure why she has increased dizziness and nausea she presents for evaluation [facility] Medical History Gastroparesis History of echocardiogram Alcohol use Back pain Dietary restriction Gastric reflux Non-smoker Home Medications ?Medication ?Instructions ?Recorded ?Last Taken ?Type promethazine 12.5 mg tablet 12.5 mg PO QHS 04/13/24 Un known History diazepam 5 mg tablet (Valium) 5 mg PO TID PRN vertigo 5 days #15 05/27/25 Unknown Rx tabs ondansetron 4 mg disintegrating 4 mg PO TID PRN PRN na usea and 05/27/25 Unknown History tablet vomiting Allergy/AdvReac Type Severity Reaction Status Date / Time No Known Allergies Allergy Verified 05/27/25 05:26 Surgical History Hx of hysterectomy Hx of wisdom tooth extraction Hx of laparoscopy History of esophagogastroduodenoscopy (EGD) Social History Smoking Status: Never smoker ROS ROS ED Constitutional Constitutional ED: Denies chills or fever(s) Eyes Eyes: Denies blurry vision or change in vision ENT ENT ED: Reports other Details: Negative tinnitus ; Denies ear pain or sore throat Cardiovascular Cardiovascular: Denies chest pain or palpitations Respiratory/Chest Respiratory/Chest: Denies cough or dyspnea Gastrointestinal Gastrointestinal: Reports nausea; Denies abdominal pain, diarrhea or vomiting Genitourinary Genitourinary ED: Denies dysuria Musculoskeletal Musculoskeletal: Denies myalgias Integumentary Denies rash Neurologic Neurologic: Reports other Details: Positive dizziness ; Denies headache(s) Hematologic/Lymphatic Hematologic/Lymphatic: Denies easy bleeding or easy bruising EXAM Physical Exam Const Vital Signs: 05/27/25 05:22 05/27/25 07:11 Temperature 97.8 F 97.6 F L Temperature Source Oral Pulse Rate 97 100 Respiratory Rate 18 16 Blood Pressure 120/88 H 94/51 L Blood Pressure Mean 98 65 Pulse Ox 100 100 Positive well nourished and well developed General Appearance ED: well developed and pallor HEENT HEENT Narrative: Normocephalic atraumatic Bilateral ear canals and tympanic membranes are normal No tongue or lip swelling no oral lesions no airway edema or compromise; no secondary findings in the posterior pharynx to suggest infection Eyes PERRL and EOMs intact bilaterally General Eye ED: Negative for scleral icterus Neck supple Resp normal respiratory effort and clear to auscultation bilaterally Cardio regular rate and regular rhythm Extremity normal to inspection Neuro oriented x3, CN's II-XII intact bilaterally and no sensory deficits noted Neuro Narrative: GCS of 15 Cranial nerves II through XII are grossly intact without focal neurologic deficit No pronator drift no dysmetria no truncal ataxia Patient has horizontal nystagmus and positive Hallpike Ashley exam on right NIH stroke scale score of 0 Sensorium / Orientation: alert Motor Exam: strength 5/5 throughout Psych mental status grossly normal Skin no rashes or lesions noted and No skin turgor normal Skin Narrative: Skin is pale in color but capillary refill remains less than 3 seconds Skin turgor is slightly increased General Skin Exam: pallor; Negative for jaundice MDM MDM MDM Narrative Medical decision making narrative: Patient arrived to the ER with stable vitals. She reported sudden onset of worsening nausea associated with dizziness that seem to increase with changes in position. Physical exam did not reveal any pronator drift or truncal ataxia going against an acute CVA or VBI. There is potential that she could have dizziness secondary to acute blood loss anemia acute kidney injury or electrolyte abnormality. Basic blood work was obtained secondary to this and revealed no clinically significant findings. After receiving IV hydration and Valium she reported improvement of her dizziness. She was able to ambulate with a steady gait and therefore at this time with stable vitals overall negative workup and improvement of symptoms I do not feel there is need for further intervention and she is otherwise safe for discharge. History & Record Review Discussion w/independent historian: Patient and Significant other Lab Data Attestation: I reviewed the patient's lab results. Labs: Laboratory Results - last 24 hr 05/27/25 05:52 WBC 8.3 RBC 4.64 Hgb 13.8 Hct 40.7 MCV 87.7 MCH 29.7 MCHC 33.9 RDW Std Deviation 41.1 RDW Coeff of Epi 12.9 Plt Count 186 MPV 12.3 H Immature Gran % (Auto) 0.400 Neut % (Auto) 69.2 Lymph % (Auto) 21.0 [place] % (Auto) 7.8 Eos % (Auto) 0.8 Baso % (Auto) 0.8 Absolute Neuts (auto) 5.8 Absolute Lymphs (auto) 1.75 Nucleated RBC % 0 Sodium 141 Potassium 3.4 Chloride 105 Carbon Dioxide 25.3 Anion Gap 11 BUN 8 Creatinine 0.57 L Estim Creat Clear Calc 120.87 Est GFR (MDRD) Non-Af 123 BUN/Creatinine Ratio 13.5 Glucose 104 H Calcium 9.1 Magnesium 2.1 Discharge Plan Triage Chief Complaint: Dizziness ED Provider: Eduardo Frederick Dx/Rx/DC Orders Clinical Impression: Peripheral vertigo, Nausea Instructions: Vestibular Rehab Therapy, ED Vertigo, Unspecified Prescriptions: New diazepam [Valium] 5 mg tablet 5 mg PO TID PRN (Reason: vertigo) 5 Days Qty: 15 0RF No Action promethazine 12.5 mg tablet 12.5 mg PO QHS ondansetron 4 mg tablet,disintegrating 4 mg PO TID PRN PRN (Reason: nausea and vomiting) Primary Care Provider: Lalito Dolan Referrals: Stephanie Freed MD [Med Staff - Junior Network Administrator] - Activity Restrictions/Additional Instructions: Your workup is consistent with peripheral vertigo. You can continue your Phenergan for nausea but if the vertigo is resolved or controlled with the Valium the nausea should be at baseline. You can also try the Derrek maneuver at home to see if this helps resolve symptoms faster. Return to the ER should you have any further concerns Print Language: Amharic Disposition Disposition: Home, Self Care Discharge Date/Time: 05/27/25 07:13
[2025-05-27] MEDS: 0.9% Normal Saline (1000mL) 1,000 ML 999 ML IV (05:50)
--- OUTSIDE RECORDS SUMMARY | 2025-05-27 05:56 | XMS RPT_ITS | CCD ---
Author Organization [facility] Care Team Providers Care Squaring Shear Operator Name Role Phone Stephanie Freed Primary Care Provider [phone] LICENSED MASSAGE THERAPIST - Seamus SNYDER Unavailable [phone] SONG RESENDIZ Attending Unavailable SONG RESENDIZ Referring Unavailable Stephanie Freed Primary Care Unavailable SONG RESENDIZ Attending Unavailable SONG RESENDIZ Referring Unavailable Stephanie Freed Primary Care Unavailable Stephanie Freed Primary Care Unavailable Eduardo Frederick Attending Unavailable STEPHANIE FREED Primary Care Unavailable LAKE NEWMAN Attending Unavailable LAKE NEWMAN Admitting Unavailable STEPHANIE FREED Primary Care Unavailable CLAUDIA DENNIS Attending Unavailable STEPHANIE FREED Primary Care Unavailable SEAMUS WEBB Referring Unavailable GRISEL HIGUERA Attending Unavailable Medications Current Medications Medication Drug Class(es) Dates Sig (Normalized) Sig (Original) ascorbic acid 1000 mg oral tablet (1 source) Vitamin C Start: 11-19-2018 Ascorbic Acid (Vitamin C) (Vitamin C) 1,000 MG tablet Active 500 MG PO DAILY November 19, 2018 1:00am cholecalciferol 0.125 mg oral tablet (1 source) Vitamin D Start: 08-09-2021 take 1 tablet by mouth once daily Cholecalciferol (Vitamin D3) (Vitamin D3) 125 mcg (5,000 unit) Tablet Active 125 MCG PO DAILY August 09, 2021 12:00am diphenhydrAMINE hydrochloride 25 mg oral capsule (1 source) Histamine-1 Receptor Antagonist Start: 08-09-2021 take 1 capsule by mouth at bedtime Diphenhydramine Hcl (Sleep Aid (Diphenhydramine)) 25 mg Capsule Active 25 MG PO AT BEDTIME August 09, 2021 12:00am ibuprofen 600 mg oral tablet (1 source) Nonsteroidal Anti-inflammatory Drug Start: 08-16-2021 take 600 mg by mouth every eight hours Ibuprofen Active 600 MG PO Q8H August 16, 2021 12:00am oxyCODONE hydrochloride 5 mg oral capsule (2 sources) Opioid Agonist Start: 08-16-2021 take 5 mg by mouth every six hours Oxycodone Active 5 MG PO EVERY 6 HOURS 20 August 16, 2021 Start: 11-26-2018 End: 12-03-2018 take 5 mg by mouth every six hours as needed Oxycodone Discontinued 5 MG PO EVERY 6 HOURS NEEDED 27 04November 26, 2018 1:00am December 03, 2018 1:08am pantoprazole 40 mg delayed release oral tablet (1 source) Proton Pump Inhibitor Start: 08-09-2021 take 40 mg by mouth once daily Pantoprazole Active 40 MG PO DAILY August 09, 2021 12:00am polyethylene glycol 3350 46142 mg powder for oral solution (1 source) Osmotic Laxative Start: 01-06-2024 End: 02-05-2024 take 17 g by mouth once daily polyethylene glycol, PEG, 3350 (Miralax) 17 g packet Indications: Constipation, unspecified constipation type Take 17 g by mouth daily. 30 packet 0 01/06/2024 02/05/2024 Active promethazine hydrochloride 25 mg oral tablet (20 sources) Phenothiazine Start: 10-04-2024 take 1 tablet by mouth every eight hours as needed for nausea and vomiting promethazine (Phenergan) 25 MG tablet Take 1 tablet (25 mg) by mouth every 8 hours as needed for nausea or vomiting. 45 tablet 1 10/04/2024 Active Start: 06-29-2024 End: 10-01-2024 take 1 tablet by mouth every eight hours as needed for nausea and vomiting promethazine (Phenergan) 25 MG tablet Take 1 tablet (25 mg) by mouth every 8 hours as needed for nausea or vomiting. 45 tablet 1 08/24/2024 10/01/2024 Discontinued (Reorder) Start: 01-06-2024 End: 03-06-2024 take 1 tablet by mouth once daily promethazine (Phenergan) 12.5 MG tablet Indications: Nausea and vomiting, unspecified vomiting type Take 1 tablet (12.5 mg) by mouth Nightly. 30 tablet 1 01/06/2024 03/06/2024 Active Start: 10-16-2023 End: 01-06-2024 take 1 tablet by mouth every eight hours as needed for nausea promethazine (Phenergan) 12.5 MG tablet Indications: Nausea and vomiting, unspecified vomiting type Take 1 tablet (12.5 mg) by mouth every 8 hours as needed for nausea or vomiting. 30 tablet 1 10/16/2023 01/06/2024 Discontinued (Reorder) End: 10-16-2023 take 1 tablet by mouth every six hours as needed promethazine (Phenergan) 12.5 MG tablet Take 12.5 mg by mouth every 6 hours as needed. 0 10/16/2023 Discontinued (Reorder) vitamin a 2.4 mg oral capsule (1 source) Vitamin A Start: 08-09-2021 take 2400 ug by mouth once daily Vitamin A Active 2400 MCG PO DAILY August 09, 2021 12:00am Zinc (1 source) Start: 08-09-2021 take 22 mg by mouth once daily Zinc Active 22 MG PO DAILY August 09, 2021 12:00am Completed/Discontinued Medications Medication Drug Class(es) Dates Sig (Normalized) Sig (Original) calcium chloride 0.0014 meq/ml / potassium chloride 0.004 meq/ml / sodium chloride 0.103 meq/ml / sodium lactate 0.028 meq/ml injectable solution (2 sources) Start: 09-10-2023 End: 09-10-2023 lactated Ringer's (LR) infusion famotidine 20 mg oral tablet (15 sources) Histamine-2 Receptor Antagonist Start: 09-23-2023 End: 01-06-2024 take 1 tablet by mouth twice daily famotidine (Pepcid) 20 MG tablet Indications: Gastric erythema Take 1 tablet (20 mg) by mouth 2 times daily. 60 tablet 5 09/23/2023 01/06/2024 Discontinued (Ineffective) metoclopramide 5 mg oral tablet (1 source) Dopamine-2 Receptor Antagonist Start: 04-30-2024 End: 06-29-2024 take 1 tablet by mouth four times daily before mealtime metoclopramide (Reglan) 5 MG tablet Take 1 tablet (5 mg) by mouth 4 times daily (before meals and nightly). 120 tablet 04/30/2024 06/29/2024 Discontinued (Ineffective) 2 ml ondansetron 2 mg/ml injection (15 sources) Serotonin-3 Receptor Antagonist Start: 07-12-2024 End: 07-12-2024 4 mg, IntraVENous, Once PRN, nausea, vomiting, Starting on Fri07/12/24 at 1209, For 1 dose, Preprocedure Start: 12-03-2023 End: 02-05-2024 Zofran 4 MG tablet Active Start: 05-24-2019 take 4 mg by mouth e very eight hours as needed Ondansetron Active 4 MG PO EVERY 8 HOURS NEEDED May 24, 2019 12:00am 5 ml sodium chloride 9 mg/ml injection (18 sources) Start: 07-12-2024 End: 07-12-2024 10 mL, IntraVENous, Every 12 hours scheduled (2 times per day), First dose on Fri07/12/24 at 2100, Preprocedure Start: 07-12-2024 End: 07-12-2024 10 mL, IntraVENous, Every 12 hours scheduled (2 times per day), First dose on Fri07/12/24 at 2100, Preprocedure Start: 07-12-2024 End: 07-12-2024 take 100 mL intravenously every hour as needed, then take 20 mL intravenously every hour as needed 5-250 mL/hr, IntraVENous, PRN, if patient receiving piggyback infusions and maintenance fluids are not ordered OR KVO fluids to protect IV site / prevent frequent line interruptions/ long duration, Starting on Fri07/12/24 at 1209, Preprocedure, For piggyback infusion, administer at same rate as piggyback for a total of 25 mL. Enter 25 mL into dose field and piggyback rate into rate field of order. If piggyback is infusing at a rate less than 100 mL/hr, enter 25 mL into dose field and 100 mL/hr into rate field of order. For KVO fluids, enter rate of 20 mL/hr or less into rate field of order. Start: 07-12-2024 End: 07-12-2024 take 10 mL intravenously once as needed 10 mL, IntraVENous, PRN, line care, Starting on Fri07/12/24 at 1209, Preprocedure, After every IV line use Start: 09-10-2023 End: 09-10-2023 sodium chloride 0.9 % infusi on Start: 09-10-2023 End: 09-10-2023 sodium chloride 0.9% (NS) fl ush 10 mL Problems Active Problems Problem Classification Problem Date Documented Da te Episodic/Chronic Endometriosis (13 sources) Uterine adenomyosis; Translations: [Adenomyosis of uterus] Onset: 4 08-16-2021 Chronic Esophageal disorders (7 sources) Gastroesophageal reflux disease; Translations: [Gastro-esophageal reflux disease without esophagitis] Onset: 4 07-16-2023 Chronic Menstrual disorders (12 sources) Dysmenorrhea; Translations: [Dysmenorrhea, unspecified] Onset: 11-26-2018 Chronic Other disorders of stomach and duodenum (1 source) Disorder of stomach; Translations: [Disease of stomach and duodenum, unspecified] 09-23-2023 Episodic Other disorders of stomach and duodenum (3 sources) Gastroparesis syndrome; Translations: [Gastroparesis] 10-16-2023 Episodic Other female genital disorders (1 source) Dyspareunia; Translations: [Dyspareunia] 11-26-2018 Chronic Other gastrointestinal disorders (1 source) Constipation; Translations: [Constipation, unspecified] 01-06-2024 Episodic Other gastrointestinal disorders (1 source) Chronic constipation; Translations: [Other constipation] 06-29-2024 Episodic Past or Other Problems Problem Classification Problem Date Documented Da te Episodic/Chronic Abdominal pain (13 sources) Chronic pelvic pain of female; Translations: [Pelvic and perineal pain] Onset: 06-17-2024 08-16-2021 Episodic Cardiac dysrhythmias (13 sources) Palpitations; Translations: [Palpitations] Onset: 06-17-2024 01-27-2023 Episodic Nausea and vomiting (20 sources) Diarrhea and vomiting; Translations: [Vomiting, unspecified] Onset: 10-11-2023 10-15-2020 Episodic Other complications of (12 sources) Hyperemesis gravidarum; Translations: [Mild hyperemesis gravidarum] Onset: 06-17-2024 10-25-2015 Episodic Other complications of (11 sources) Congenital heart disease in ; Translations: [Diseases of the circulatory system complicating , unspecified trimester] Onset: 10-30-2015 06-17-2024 Episodic Other disorders of stomach and duodenum (2 sources) Gastroparesis; Translations: [Gastroparesis] Onset: 06-29-2024 Episodic Results Test Name Value Interpretation Reference Range Facility 36on 10-04-2024 36 Lvm informing pt roscoe Recinos did refill the phenergan. Since no longer following with us, future refills will need to come from PCP/GI. 36 Please let patient k now I did refill the phenergan. Since no longer following with us, future refills will need to come from PCP/GI. Thanks 36on 08-16-2024 36 Noted. Thank you. Impression again abnormal, consistent with delayed emptying. 36 I called [facility] to see if addendum to report is ready? Yes, they are faxing it over. Updated Report received for Gastric Emptying study: [place] [id number] 08-10-2024 36 Has updated report b een received? Did not see anything in media. Thank you! 36on 07-29-2024 36 I called [facility] again and was told to call [facility] radiology to make the request for changes. I spoke to them and they will send an Addendum request to Dr Joseph and send us a new copy. 36on 07-16-2024 36 Pt states she is hav ing decent BMs, and stopped Miralax while on vacation. -started Miralax now that she is home -nausea is a little better, no pain really *said she would call back in if she needs anything else or her nausea gets worse [place] [id number] Attempted to call heide portillo to discuss UGI w/sbft results. Patient's testing was normal. Her colonoscopy was normal. Requested call back to see how she is feeling and if having regular bowel movements and if so, has this helped with pain. When patient calls back, please relay normal results and ask how feeling. Upper GI/w Small Bowelon Upper GI/w Small Bowel [facility] Imaging Services [address] [place] [address] Upper GI/w Small Bowel MR#: [id number] Acct: [id number] Name: JOSEPH PETIT Rep #: [id number] : 1990 F 33 From: Kings pepper MD PCP: Dr. Stephanie Freed MD Status: [facility] Study: Upper GI/w Small Bowel Date of Exam: 07/13/24 Exam# [id number] Ordering Dr: GRISEL HIGUERA :[id number] PROCEDURE: Upper GI with Small Bowel Follow Through DATE OF EXAMINATION: July 13, 2024.. INDICATION: Female, 33 years old. Nausea. Gastroesophageal reflux. FLUOROSCOPY TIME (if supplied): (3:19) minutes/seconds. 45.4 mGy.. 15 images were submitted. TECHNIQUE: Radiographic and fluoroscopic images of the distal esophagus, stomach, and entire small intestine were obtained following the oral ingestion of barium. COMPARISON: None. FINDINGS: The hockey scout film of the abdomen demonstrates a normal bowel gas pattern. There are no abnormal calcifications or organomegaly demonstrated. The visualized osseous structures are normal. Esophagus unremarkable. No evidence of a esophageal mass. No gastroesophageal reflux is seen. The stomach and duodenum are unremarkable. A single contrast small bowel follow through exam demonstrates the small bowel to have no evidence for stricture, ulceration or mass. The transit time is normal at 60 minutes. RAD/Upper GI/w Small Bowel IMPRESSION: 1. Normal single contrast small bowel follow-through exam. Electronically Signed: Kings Siddiqi MD at 13:41 EDT , CC: Dr. Stephanie Freed MD; GRISEL HIGUERA Data Entry Coordinator: Signed [facility] 36on 07-09-2024 36 Patient called in to ask a few questions about her colonoscopy which I helped answer but she did state that she got into [facility] on 07/13 for her UGI so I gave her Central Scheduling to cancel her UGI with [facility] on 07/27. Wanted to let you know so you know where to get her results. DP 36on 07-02-2024 36 I called [facility] and Radiology dept transferred me to the [facility]. I left him a message with pt name, , and reason, I left our back line phone number for them to call me back. 36 Patient seen by surg frankie 06/29/2024. Upon re-review of GES, findings does not match impression which states there is delayed solid phase gastric emptying compared to normal controls. Findings suggest normal GES as noted by surgery team. Patient undergoing additional work-up by ALS for continued symptoms. GI Staff-please request clarification of impression of GES from radiologist (Dr. Dameon Joseph). Patient completed test at [facility]. Thank you! 36on 06-30-2024 36 Lvm informing pt roscoe t I have faxed over her order to [facility] and yes we discussed her colonoscopy for the and prep and instructions were giving. I also informed her that I will also send information through the mail and if she has any questions to call our office. [place] [id number] Yes, I ordered UGI w /sbft and she can do this at [place]. 36 Pt called because sh remy was seen yesterday and was ordered an UGI and she would like to have it near her house. Pt would like the order faxed to [facility] fax number is [phone]. Pt also asked if she was going to get a C scope scheduled? She states it was mentioned at her visit and a date of Jul 12 but she did not see anything in her mychart. 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 female who presents with nausea. Reports daily nausea over the past 1-2 years. Can become severe at night and sensation of needing to throw up keeps her up all night. Has tried zofran and phenergan; believes phenergan works better. Will have reflux/heartburn but states this is mild. Has tried zantac, pepcid and prilosec without improvement. States tried all three medications for at least a month each but does not recall dose. Has undergone upper endoscopy that showed gastritis but was otherwise unremarkable. She has tried elimination diet without improvement. She does not notice any correlation between severity of nausea and eating. She does have chronic constipation which she states has worsened over the past 1-2 years as well. Will take miralax if she hasn't had a bowel movement after 3 days and then will have severe lower abdominal cramping followed by multiple frequent loose stool throughout the day. She does notice a pattern with severe nausea and constipation. Underwent US and HIDA that was negative for gallstones and EF of 97%. She denies any abdominal pain or worsening of nausea with HIDA test. She has never had a colonoscopy. She was diagnosed with gastroparesis but her GES was normal with 7% retained material at 4 hrs. She states because she was told she had gastroparesis she has been researching and has tried gastroparesis diet and no improvement. Was started on Reglan and states as long as she takes the antiemetic medication along with the reglan, the severe nights are less frequent but still with daily nausea. Was referred for placement of gastric neurostimulator. She was originally referred to [facility] gastroparesis clinic but because the GES was normal, she was not accepted as a patient. Previous abdominal surgeries of laparoscopy and hysterectomy for endometriosis. She is overall healthy. She does not smoke. Rare ETOH. No recreational drug use. Denies any history of substance abuse. I personally reviewed the patient intake form and discussed the ROS with the patient. The ROS is negative except for what is listed in HPI. 4 hr GES 10/08/25 @ [facility] reviewed EGD 09/10/23 Dr Adame reviewed HIDA 02/24/23 @ [place] reviewed US abd 01/22/23 @ [facility] reviewed PMHx: Past Medical History: Diagnosis Date Endometriosis PSHx: Past Surgical History: Procedure Laterality Date EGD (HISTORICAL) 09/10/[address] Adame HYSTERECTOMY LAPAROSCOPY DIAGNOSTIC / BIOPSY / ASPIRATION / LYSIS for endometriosis WISDOM TOOTH EXTRACTION 2013 PFMHx: Family History Problem Relation Name Age of Onset Thyroid disease Mother Hypertension Father Emphysema Father ALL: No Known Allergies MEDS: Current Outpatient Medications Medication Sig Dispense Refill Zofran 4 MG tablet promethazine (Phenergan) 25 MG tablet Take 1 tablet (25 mg) by mouth every 8 hours as needed for nausea or vomiting. 45 tablet 1 No current facility-administered medications for this visit. SOCIAL Hx: Social History Socioeconomic History Marital status: Spouse name: Not on file Number of children: Not on file Years of education: Not on file Highest education level: Not on file Occupational History Not on file Tobacco Use Smoking status: Never Smokeless tobacco: Never Vaping Use Vaping status: Never Used Substance and Sexual Activity Alcohol use: Yes Alcohol/week: 2.0 standard drinks of alcohol Types: 1 Glasses of wine, 1 Shots of liquor per week Comment: RARELY Drug use: Never Sexual activity: Yes Partners: Male control/protection: Female Sterilization Other Topics Concern Not on file Social History Narrative Not on file Social Determinants of Health Financial Resource Strain: Not on file Food Insecurity: Not on file Transportation Needs: Not on file Physical Activity: Not on file Stress: Not on file Social Connections: Not on file Intimate Partner Violence: Not on file Housing Stability: Not on file DIAGNOSTIC EVALUATION: 4 hr GES 10/08/23 [place] EGD 09/10/23 Dr Adame Pathology 09/10/23 Final Diagnosis A. DUODENUM, BIOPSY: - INTESTINAL MUCOSA WITH NO SIGNIFICANT PATHOLOGIC CHANGES Comment: The villous architecture is normal, and there is no significant intraepithelial Iymphocytosis or crypt hyperplasia. B. STOMACH, BIOPSY: - GASTRIC MUCOSA WITH NO SIGNIFICANT PATHOLOGIC CHANGES Comment: H&E stain is negative for H. pylori. No significant active inflammation present. Negative for intestinal metaplasia or malignancy. HIDA 02/24/23 @ [place] US Abd 01/22/23 @ [facility] Physical Examination: BP 97/62 (BP Location: Right arm, Patient Position: Sitting, BP Cuff Size: Adult) Pulse 83 Temp 36.7 ?C (98 ?F) (Temporal) Ht 5' 2 (1.575 m) Wt 123 lb (55.8 kg) BMI 22.50 kg/m? S (more content not included)... Normal [facility] Basic Metabolic Profile (BMP )on 04-13-2024 BUN/CRE 8.5 RATIO Low 10-20 [facility] Comment on above: Performed By: #### L 100.0100, L500.2500, L501.5200, L501.2450, L500.3400 #### [facility] [address] [place], [address] CA,Total 9.5 mg/dL Normal 8.5-10.1 [facility] Comment on above: Performed By: #### L 100.0100, L500.2500, L501.5200, L501.2450, L500.3400 #### [facility] [address] [place], [address] Chloride [Moles/Vol] 109 mmol/L High 98-107 [facility] Comment on above: Performed By: #### L 100.0100, L500.2500, L501.5200, L501.2450, L500.3400 #### [facility] [address] [place], [address] CO2 [Moles/Vol] 27.0 mmol/L Normal 21.0-32.0 [facility] Comment on above: Performed By: #### L 100.0100, L500.2500, L501.5200, L501.2450, L500.3400 #### [facility] [address] [place], [address] Creatinine [Mass/Vol] 0.59 mg/dL Normal 0.55-1.02 [facility] Comment on above: Result Comment: The validity of the calculated GFR GFRAA in patients over 70 years has not been determined. Clinical correlation is essential. Performed By: #### L 100.0100, L500.2500, L501.5200, L501.2450, L500.3400 #### [facility] [address] [place], [address] ECRCL 108.27 ml/min Normal [facility] Comment on above: Performed By: #### L 100.0100, L500.2500, L501.5200, L501.2450, L500.3400 #### [facility] [address] [place], [address] EST GFR - AA 151 mL/min Normal >60 [facility] Comment on above: Result Comment: Afri can Tristanian GFR Calc Performed By: #### L 100.0100, L500.2500, L501.5200, L501.2450, L500.3400 #### [facility] [address] [place], [address] GAP 6 Normal 5-15 [facility] Comment on above: Performed By: #### L 100.0100, L500.2500, L501.5200, L501.2450, L500.3400 #### [facility] [address] [place], [address] GFR/1.73 sq M.predicted among non-blacks MDRD (S/P/Bld) [Vol rate/Area] 125 mL/min/{1.73_m2} Normal >60 [facility] Comment on above: Result Comment: Non- GFR Calc Performed By: #### L 100.0100, L500.2500, L501.5200, L501.2450, L500.3400 #### [facility] [address] [place], [address] Glucose [Mass/Vol] 101 mg/dL Normal 74-106 [facility] Comment on above: Result Comment: Fast ing Glucose result from 100 to 125 mg/dL suggests IMPAIRED HOMEOSTASIS per A.D.A. criteria. Performed By: #### L 100.0100, L500.2500, L501.5200, L501.2450, L500.3400 #### [facility] [address] [place], [address] Potassium [Moles/Vol] 3.5 mmol/L Normal 3.5-5.1 [facility] Comment on above: Performed By: #### L 100.0100, L500.2500, L501.5200, L501.2450, L500.3400 #### [facility] [address] [place], [address] Sodium [Moles/Vol] 142 mmol/L Normal 136-145 [facility] Comment on above: Performed By: #### L 100.0100, L500.2500, L501.5200, L501.2450, L500.3400 #### [facility] [address] [place], [address] Urea nitrogen [Mass/Vol] 5 mg/dL Low 7-18 [facility] Comment on above: Performed By: #### L 100.0100, L500.2500, L501.5200, L501.2450, L500.3400 #### [facility] [address] [place], [address] CBC W/Diff, Automatedon 07-0 2-2023 Absolute Lymph 1.49 X10 3/uL Normal 0.83-4.51 [facility] Comment on above: Performed By: #### L 100.0100, L500.2500, L501.5200, L501.2450, L500.3400 #### [facility] [address] [place], [address] Absolute Neut 6.1 X10 3/uL Normal 2.0-7.7 [facility] Comment on above: Performed By: #### L 100.0100, L500.2500, L501.5200, L501.2450, L500.3400 #### [facility] [address] [place], [address] Basophils/100 WBC (Bld) 0.4 % Normal 0-1 [facility] Comment on above: Performed By: #### L 100.0100, L500.2500, L501.5200, L501.2450, L500.3400 #### [facility] [address] [place], [address] Eosinophils/100 WBC (Bld) 0.6 % Normal 0-5 [facility] Comment on above: Performed By: #### L 100.0100, L500.2500, L501.5200, L501.2450, L500.3400 #### [facility] [address] [place], [address] Erythrocyte distribution width (RBC) [Ratio] 12.6 % Normal 11.6-14.6 [facility] Comment on above: Performed By: #### L 100.0100, L500.2500, L501.5200, L501.2450, L500.3400 #### [facility] [address] [place], [address] Hematocrit (Bld) [Volume fraction] 41.5 % Normal 37-47 [facility] Comment on above: Performed By: #### L 100.0100, L500.2500, L501.5200, L501.2450, L500.3400 #### [facility] [address] [place], [address] Hemoglobin (Bld) [Mass/Vol] 14.1 g/dL Normal 12.0-15.0 [facility] Comment on above: Performed By: #### L 100.0100, L500.2500, L501.5200, L501.2450, L500.3400 #### [facility] [address] [place], [address] IG% 0.400 Normal 0.0-0.9 [facility] Comment on above: Result Comment: IG% - Immature Granulocytes (promyelocytes, myelocytes and metamyelocytes) > 1% indicates that a LEFT SHIFT is Present. Performed By: #### L 100.0100, L500.2500, L501.5200, L501.2450, L500.3400 #### [facility] [address] [place], [address] Lymphocytes/100 WBC (Bld) 18.2 % Low 19-41 [facility] Comment on above: Performed By: #### L 100.0100, L500.2500, L501.5200, L501.2450, L500.3400 #### [facility] [address] [place], [address] MCH (RBC) [Entitic mass] 30.1 pg Normal 27.0-32.0 [facility] Comment on above: Performed By: #### L 100.0100, L500.2500, L501.5200, L501.2450, L500.3400 #### [facility] [address] [place], [address] MCHC (RBC) [Mass/Vol] 34.0 g/dL Normal 32-36 [facility] Comment on above: Performed By: #### L 100.0100, L500.2500, L501.5200, L501.2450, L500.3400 #### [facility] [address] [place], [address] MCV (RBC) [Entitic vol] 88.5 fL Normal 81-99 [facility] Comment on above: Performed By: #### L 100.0100, L500.2500, L501.5200, L501.2450, L500.3400 #### [facility] [address] [place], [address] Monocytes/100 WBC (Bld) 5.7 % Normal 0-10 [facility] Comment on above: Performed By: #### L 100.0100, L500.2500, L501.5200, L501.2450, L500.3400 #### [facility] [address] [place], [address] Neutrophils/100 WBC (Bld) 74.7 % High 47-70 [facility] Comment on above: Performed By: #### L 100.0100, L500.2500, L501.5200, L501.2450, L500.3400 #### [facility] [address] [place], [address] Nucleated RBC (Bld) [#/Vol] 0 10*3/uL Normal 0-5 [facility] Comment on above: Performed By: #### L 100.0100, L500.2500, L501.5200, L501.2450, L500.3400 #### [facility] [address] [place], [address] Platelet mean volume (Bld) [Entitic vol] 12.4 fL High 6.2-12.0 [facility] Comment on above: Performed By: #### L 100.0100, L500.2500, L501.5200, L501.2450, L500.3400 #### [facility] [address] [place], [address] Platelets (Bld) [#/Vol] 186 10*3/uL Normal 150-450 [facility] Comment on above: Performed By: #### L 100.0100, L500.2500, L501.5200, L501.2450, L500.3400 #### [facility] [address] [place], [address] RBC (Bld) [#/Vol] 4.69 10*6/uL Normal 4.2-5.4 [facility] Comment on above: Performed By: #### L 100.0100, L500.2500, L501.5200, L501.2450, L500.3400 #### [facility] [address] [place], [address] RDW SD 40.4 fl Normal 35.1-43.9 [facility] Comment on above: Performed By: #### L 100.0100, L500.2500, L501.5200, L501.2450, L500.3400 #### [facility] [address] [place], [address] WBC (Bld) [#/Vol] 8.2 10*3/uL Normal 4.4-11.0 [facility] Comment on above: Performed By: #### L 100.0100, L500.2500, L501.5200, L501.2450, L500.3400 #### [facility] [address] [place], [address] Emergency Department Summary on 04-13-2024 Emergency Department Summary [facility] Medical Records Department [address] [place] [address] Emergency Department Summary 04/13/24 MR#: [id number] Acct: [id number] Name: JOSEPH PETIT Rep #: [id number] : 1990 33 From: Eduardo Frederick DO PCP: Dr. Stephanie Freed MD Status:REG ER Location: ED HPI History of Present Illness Chief Complaint: Nausea/Vomiting/Diarrhea Informant: patient Narrative Narrative: Patient is a 33-year-old female with past medical history of gastroparesis and IBS. She states that she is nauseous frequently secondary to her gastroparesis. She states that she has been taking Phenergan now at nighttime to help with symptoms. She reports she did this as directed last night but woke around 2:30 in the morning with worsening nausea and loose stool. She says that this type of presentation is consistent with exacerbations of her gastroparesis. She denies any fevers or chills chest pain shortness of breath. She denies any known sick contacts or recent travel outside the country or antibiotic use. She reports that when she gets this way she typically needs IV medication to help control symptoms and therefore presents for evaluation [facility] Medical History Gastroparesis History of echocardiogram Alcohol use Back pain Dietary restriction Gastric reflux Non-smoker Home Medications ???Medication ???Instructions ???Recorded ???Last Taken ???Type promethazine 12.5 mg tablet 12.5 mg PO QHS 04/13/24 Unknown History Allergy/AdvReac Type Severity Reaction Status Date / Time No Known Allergies Allergy Verified 04/13/24 06:15 Surgical History (Updated 04/13/24 @ 05:45 by Raya Yepez) Hx of hysterectomy Hx of wisdom tooth extraction Hx of laparoscopy History of esophagogastroduodenoscopy (EGD) Social History Smoking Status: Never smoker ROS ROS ED Constitutional Constitutional ED: Denies chills or fever(s) ENT ENT ED: Denies sore throat Cardiovascular Cardiovascular: Denies chest pain Respiratory/Chest Respiratory/Chest: Denies cough or dyspnea Gastrointestinal Gastrointestinal: Reports diarrhea and nausea; Denies abdominal pain or vomiting Genitourinary Genitourinary ED: Denies dysuria or hematuria Musculoskeletal Musculoskeletal: Denies myalgias Integumentary Denies rash Neurologic Neurologic: Denies headache(s) Hematologic/Lymphatic Hematologic/Lymphatic: Denies easy bleeding or easy bruising EXAM Physical Exam Const Vital Signs: 04/13/24 05:37 Temperature 96.9 F L Temperature Source Temporal Pulse Rate 94 Respiratory Rate 16 Blood Pressure 116/84 H Blood Pressure Mean 94 Pulse Ox 100 Oxygen Delivery Method Room Air Positive well nourished and well developed General Appearance ED: well developed; Negative for pallor HEENT Reports dry mucous membranes HEENT Narrative: Mucous membranes are dry and tacky without tongue or lip swelling oral lesions or airway edema or compromise No signs of infection noted in the posterior pharynx either Mouth ED: Yes dry mucous membranes Mouth: dry mucous membranes Eyes PERRL and EOMs intact bilaterally General Eye ED: Negative for pale conjunctiva or scleral icterus Neck supple Neck Narrative: No nuchal rigidity or meningeal signs No tracheal deviation or crepitance palpated Resp normal respiratory effort and clear to auscultation bilaterally Cardio regular rate and regular rhythm Rate: other Other Details: Heart is regular rate and rhythm without murmurs rubs or gallops Radial and carotid pulses are equal and symmetric GI non-distended GI Narrative: Abdomen is soft and nondistended with hyperactive bowel sounds. There is mild diffuse pain on palpation without voluntary guarding or rigidity. No pulsatile mass or fluid wave. No increased tympany noted Auscultation: hyperactive bowel sounds Palpation: soft Extremity normal to inspection Neuro oriented x3, CN's II-XII intact bilaterally and no sensory deficits noted Sensorium / Orientation: alert Motor Exam: strength 5/5 throughout Psych mental status grossly normal Skin no rashes or lesions noted and skin turgor normal General Skin Exam: Negative for jaundice or pallor MDM MDM MDM Narrative Medical decision making narrative: Patient presented to the ER with stable vitals and a soft nonsurgical abdomen. She does have a remote history of hysterectomy but there is no distention and she states she has been having loose stool which goes against ileus or bowel obstruction so I felt no need for imaging. With concern that this could be pancreatitis versus biliary colic versus acute cholecystitis versus acute kidney injury or electrolyte abnormality I did elect to perform basic laboratory studies. Labs revealed no clinically significant findin (more content not included)... Normal [facility] Lipaseon 04-13-2024 Lipase [Catalytic activity/Vol] 36 U/L Normal 13-75 [facility] Comment on above: Result Comment: Akhil wesley note: LIPASE revised reference range effective 23. New Lipase methodology. Expected to produce lower values than the previous assay method. NEW Reference Range: 13 - 75 U/L Performed By: #### L 100.0100, L500.2500, L501.5200, L501.2450, L500.3400 #### [facility] [address] [place], [address] Liver Profileon 04-13-2024 Albumin [Mass/Vol] 4.0 g/dL Normal 3.2-5.0 [facility] Comment on above: Performed By: #### L 100.0100, L500.2500, L501.5200, L501.2450, L500.3400 #### [facility] [address] [place], [address] ALK P 53 U/L Normal 45-117 [facility] Comment on above: Performed By: #### L 100.0100, L500.2500, L501.5200, L501.2450, L500.3400 #### [facility] [address] [place], [address] ALT [Catalytic activity/Vol] 16 U/L Normal 13-56 [facility] Comment on above: Performed By: #### L 100.0100, L500.2500, L501.5200, L501.2450, L500.3400 #### [facility] [address] [place], [address] AST [Catalytic activity/Vol] 15 U/L Normal 15-37 [facility] Comment on above: Performed By: #### L 100.0100, L500.2500, L501.5200, L501.2450, L500.3400 #### [facility] [address] [place], [address] Bilirubin [Mass/Vol] 0.30 mg/dL Normal 0.20-1.00 [facility] Comment on above: Result Comment: For patients on eltrombopag therapy, use of Dimension Tama TBIL is not recommended. Performed By: #### L 100.0100, L500.2500, L501.5200, L501.2450, L500.3400 #### [facility] [address] [place], [address] Bilirubin.direct [Mass/Vol] 0.09 mg/dL Normal 0.00-0.30 [facility] Comment on above: Performed By: #### L 100.0100, L500.2500, L501.5200, L501.2450, L500.3400 #### [facility] [address] [place], [address] Globulin (S) [Mass/Vol] 3.2 g/dL Normal 2.2-4.2 [facility] Comment on above: Performed By: #### L 100.0100, L500.2500, L501.5200, L501.2450, L500.3400 #### [facility] [address] [place], [address] T PROT 7.2 g/dL Normal 6.4-8.2 [facility] Comment on above: Performed By: #### L 100.0100, L500.2500, L501.5200, L501.2450, L500.3400 #### [facility] [address] [place], [address] Magnesiumon 04-13-2024 Magnesium [Mass/Vol] 2.4 mg/dL Normal 1.6-2.6 [facility] Comment on above: Performed By: #### L 100.0100, L500.2500, L501.5200, L501.2450, L500.3400 #### [facility] [address] [place], [address] PATINSon 01-06-2024 PATINS - GES ordered by Viky Webb 09/23/2023, 7% retention at 4 hours. - Recommend phenergan scheduled at bedtime and continue zofran as needed during the day. - Commercial [employer] L[employer] referral offered, declined at this time. - Diet and lifestyle EDU. - Miralax 17g daily for constipation. - Update in 1 week via MyChart or phone call if interventions are helping or not. Normal [facility] Progress Noteon 01-06-2024 Progress Note [facility] [address] [facility] [address] Dept: [phone] Dept Loc: [phone] Visit type: New Patient vs Established Patient Reason for Visit: Nausea (Discuss medication.) Assessment and Plan Problems Addressed Gastroparesis Nausea No follow-ups on file. - GES ordered by Viky Webb 09/23/2023, 7% retention at 4 hours. - Recommend phenergan scheduled at bedtime and continue zofran as needed during the day. - Commercial Real Estate Lender referral offered, declined at this time. - Diet and lifestyle EDU. - Miralax 17g daily for constipation. - Update in 1 week via MyChart or phone call if interventions are helping or not. Advised patient to call office with new or worsening symptoms, questions, or concerns. Patient verbalized understanding and agreement of plan. Subjective HPI Patient was identified and seen today via Telehealth by agreement and consent. I used the following Telehealth technology: Audio and video capabilities. Patient location: Patient Location: Home. This patient encounter is appropriate and reasonable under the circumstances: provider remote . The patient has been advised of the potential risks and limitations of this mode of treatment (including but not limited to the absence of in-person examination) and has agreed to be treated in a remote fashion in spite of them. Any and all of the patient's/patient's family's questions on this issue have been answered and I have made no promises or guarantees to the patient. The patient has also been advised to contact this office for worsening conditions or problems, and seek emergency medical treatment and/or call 911 if the patient deems either necessary. The patient stated that they are currently in the [facility]. If the patient is a minor, permission has been obtained by the parent or guardian for the patient to receive medical care at this visit. This patient is new to me however has been evaluated by another provider from this practice. Last OV was with Viky Webb on 07/16/2023 . Patient is followed for nausea. At last visit was advised to obtain GES, EGD, CMP, and celiac panel. GES ordered by Viky Webb 09/23/2023, 7% retention at 4 hours.Patient attempted to see Dr. Donohue but he will not see patient's with retention <10%. Patient presents for nausea and to discuss medications. She has been following gastroparesis diet and taking phenergan 1-2 times weekly and zofran daily, some times more frequently. She is experiencing nighttime nausea that is preventing her from sleeping, no vomiting at this time. She also reports constipation that worsens her nausea. Review of Systems Constitutional: Negative for appetite change, chills, fatigue, fever and unexpected weight change. Gastrointestinal: Positive for abdominal distention, constipation and nausea. Negative for abdominal pain, anal bleeding, blood in stool, diarrhea, rectal pain and vomiting. No Known Allergies Outpatient Medications Prior to Visit Medication Sig Dispense Refill promethazine (Phenergan) 12.5 MG tablet Take 1 tablet (12.5 mg) by mouth every 8 hours as needed for nausea or vomiting. 30 tablet 1 famotidine (Pepcid) 20 MG tablet Take 1 tablet (20 mg) by mouth 2 times daily. (Patient not taking: Reported on 01/01/2024) 60 tablet 5 No facility-administered medications prior to visit. There are no problems to display for this patient. Social History Tobacco Use Smoking status: Never Smokeless tobacco: Never Substance Use Topics Alcohol use: Never Family History Problem Relation Name Age of Onset Thyroid disease Mother Hypertension Father Emphysema Father Objective There were no vitals taken for this visit. Physical Exam Constitutional: Appearance: Normal appearance. She is normal weight. Neurological: General: No focal deficit present. Mental Status: She is alert and oriented to person, place, and time. Psychiatric: Mood and Affect: Mood normal. Behavior: Behavior normal. Thought Content: Thought content normal. Data Reviewed and Summarized Labs: Lab Results Component Value Date ALT 16 07/16/2023 AST 15 07/16/2023 CREATININE 0.59 07/16/2023 BUN 8 07/16/2023 CO2 24 07/16/2023 Chemistry Lab Results Component Value Date/Time CO2 24 07/16/2023 1129 BUN 8 07/16/2023 1129 CREATININE 0.59 07/16/2023 1129 Lab Results Component Value Date/Time CALCIUM 9.3 07/16/2023 1129 ALKPHOS 46 07/16/2023 1129 AST 15 07/16/2023 1129 ALT 16 07/16/2023 1129 BILITOT 0.5 07/16/2023 1129 Imaging/Testing: GES: Prior EGD/Colonoscopy: EGD 09/10/[address] Adame for GERD: 01-01-2024 36 Results noted. Thanks. [facility] 36 Pt returned a call a nd she stated pt had completed GES at [facility]. Pt state she is feeling nauseas all the time, no vomiting. Medication is not helping and she want to be seen sooner. Scheduled VV with HEIDE Taylor on 01/06/2024 at 10:30 am. Claudia: here is the test results for GES [place] [address] Patient was returnin g the call and wanted to let the office know that she did have the gastric emptying study completed around October 07. Please be advised. 12-30-2023 36 Called pt to notify provider message. Pt didn't answer, lmtcb and cb# provided. Pt can be continue follow with ACCOUNT MANAGER TRAINEE Seamus Webb since, she will be returning on February. As per provider, pt need to complete GES. CS number were provided. Thank you [place] [address] Please see if rashid mina has completed gastric emptying study. If not completed please assist with scheduling KERRI with follow up in office. Thanks. [address] 12-29-2023 36 Name of Caller: Joycelyn mckay Contact Reason for Appointment: R11.2 (ICD-10-CM) - Nausea and vomiting, unspecified vomiting type K31.84 (ICD-10-CM) - Gastroparesis Patient needs seen sooner that March Office Name: Gastro 12-11-2023 36 Seamus is on leave. L MTCB re: scheduling an OV with an other provider. 12-08-2023 36 Please advise, thank you! [address] 12-04-2023 36 Name of caller: Joycelyn mckay Contact phone number: [phone] Relationship to Patient: patient Provider: Sweta Webb Practice: Gastroenterology Chief Complaint/Reason for Call: Joseph was referred to other provider for Gastroparesis. She was told by that office that they will not see her because she is is only at 7% and he only sees people at 10% or higher. She is not sure what she should do from here. She would also like to know if there are any other options for nausea besides the promethazine (Phenergan). She is having a lot of nausea and pain. Please call [place] to advise Best time of day caller can be reached: Any Patient advised that office/PCP has 24-48 business hours to return their call: Yes CNPNon 10-22-2023 CNPN Telephone (GASTSP) JOSEPH PETIT ([id number]) 1990 F Date Time Provider Department 10/22/23 LEYDI DONOHUE GASTSP During your visit today, we recorded the following information about you: Raquel Marino 10/22/2023 8:25 AM Signed Outside referral and GI records in scanned documents Raquel Marino 11/06/2023 3:01 PM Signed Patient GES is normal and she will go to her referring provider to follow up Allergies As of Date: 10/22/2023 (No Known Allergies) Date Reviewed: 11/14/2020 Reviewed by: Kathya Hall (Lauryn), LAURYN - Fully Assessed Reason for Visit: Appointment [186] Prescriptions as of 11/06/2023 - ondansetron (ZOFRAN) 4 mg tablet take 1 tablet by mouth three times a day and if needed - pantoprazole DR (PROTONIX) 40 mg tablet Take 40 mg by mouth once daily. - baclofen 10 mg lidocaine 50 mg vaginal suppository (CPD) Unwrap and insert one suppository vaginally at bedtime daily as directed. - lidocaine (XYLOCAINE) 5 % ointment Apply to affected area as needed. Apply to vagina externally once to twice daily Problem List As Of Date: 10/22/2023 (None) Encounter Status:Closed by RAQUEL MARINO on 10/22/[address] [facility] 36on 10-16-2023 36 Thank you 36 Called and spoke wit h patient-addressed in different TE today. 36 Returned call to codi strauss. Discussed positive GES and tx options with patient: trial of metoclopramide vs referral to liability claims representative vs referral to [facility] Gastroparesis clinic. Patient prefers to avoid metoclopramide due to potential SE. She would like to pursue referral to [facility]. Referral placed. Refill of phenergan also requested-rx sent. Recommend low fat, low fiber diet. Patient verbalized understanding, advised to call with additional questions or concerns. GI staff-please fax patient's referral to [facility] Gastroparesis clinic along with GES report, EGD, PN, etc. Thank you! 36 Please advise [place] [address] Name of caller: Joycelyn mckay Contact phone number: [phone] Relationship to Patient: patient Provider: LILLIAN Webb Practice: Gastro Chief Complaint/Reason for Call: Pt states she needs clarification on the results from her gastric emptying. Pt states she got the results on her mychart but doesn't quite understand them. Please advise. Best time of day caller can be reached: any Patient advised that office/PCP has 24-48 business hours to return their call: N/A [place] [id number] 36 Reviewed GES report received-exam consistent with delayed gastric emptying. Called patient at number listed in chart, no answer. Left VM to contact office regarding results. Office callback number provided. 3610-14-2023 36 Called patient to le t her know that we received the results from the GES and will be scanned into her chart for provider to review. Thank you 36 error [place] [address] Name of caller: Joycelyn marte Contact phone number: [phone] Relationship to Patient: Patient Provider: Sweta Webb Practice: Gastro Chief Complaint/Reason for Call: Please contact patient with results from outside facility on her Gastric Emptying Test - and if results have not been faxed to [facility] please advise patient accordingly. Best time of day caller can be reached: any Patient advised that office/PCP has 24-48 business hours to return their call: No [place] [address]on 10-09-2023 36 Called and spoke wit h patient to let her know that we have not received the results for the GES and asked her to reach out to the hospital where she had it done to send us the results. Provided patient with fax number. Thank you 36on 10-08-2023 36 I have not received results. Please request results of GES from [facility]. Thank you! 36 Please advise 36 Name of caller: Joycelyn mckay Contact phone number: [phone] Relationship to Patient: patient Provider: Forester LILLIAN Practice: Gastroenterology Chief Complaint/Reason for Call: Joseph states that Seamus wanted her to call the office once she completed her gastric emptying so that she could make sure the results were received since she had the procedure done outside of [facility]. Joseph states that she had the procedure done at [facility] on 10/07/23. Please be advised. Best time of day caller can be reached: Any Patient advised that office/PCP has 24-48 business hours to return their call: No Gastric Emptying Study - 4 H Jose 10-07-2023 Gastric Emptying Study - 4 HR [facility] Services [address] [place] [address] Gastric Emptying Study - 4 HR MR#: [id number] Acct: [id number] Name: JOSEPH PETIT Rep #: [id number] : 1990 F 32 From: Dameon King PCP: Dr. Stephanie Freed MD Status: [facility] Study: Gastric Emptying Study - 4 HR Date of Exam: Exam# [id number] Ordering Dr: SEAMUS WEBB ADDENDUM by Dr. Dameon Joseph, DO on 07/29/24 at 2141 ADDENDUM :[id number] CLINICAL: 32-year-old female with history of chronic nausea. SOLID PHASE 99m Tc SULFUR COLLOID GASTRIC EMPTYING STUDY COMPARISON: None available FINDINGS: The patient was administered 1.0 mCi of 99m Tc sulfur colloid mixed with egg and consumed per os. Image acquisitions in the anterior-posterior projections were obtained for 230 minutes following meal consumption. There is prompt visualization of the stomach. There is no gastroesophageal reflux identified. First order kinetics are maintained throughout the duration of the acquisitions. The T ? linear fit was calculated to be 128.76 minutes, (Normal 65-110 minutes). 89.0 % emptying and 11.0 % retention are defined at 3 hours post meal ingestion. 07/29/242140 Date cc: Dr. Stephanie Freed MD; [facility] * Signed ADDENDUM by Dr. Dameon Joseph DO on 07/29/24 at 2141 ADDENDUM :[id number] CLINICAL: 32-year-old female with history of chronic nausea. SOLID PHASE 99m Tc SULFUR COLLOID GASTRIC EMPTYING STUDY COMPARISON: None available FINDINGS: The patient was administered 1.0 mCi of 99m Tc sulfur colloid mixed with egg and consumed per os. Image acquisitions in the anterior-posterior projections were obtained for 230 minutes following meal consumption. There is prompt visualization of the stomach. There is no gastroesophageal reflux identified. First order kinetics are maintained throughout the duration of the acquisitions. The T ? linear fit was calculated to be 128.76 minutes, (Normal 65-110 minutes). 89.0 % emptying and 11.0 % retention are defined at 3 hours post meal ingestion. 07/29/242140 Date cc: Dr. Stephanie Freed MD; SEAM[facility] Mercado Signed ADDENDUM by Dr. Dameon Joseph DO on 10/08/23 at 0937 :[id number] CLINICAL: 32-year-old female with history of chronic nausea. SOLID PHASE 99m Tc SULFUR COLLOID GASTRIC EMPTYING STUDY COMPARISON: Hepatobiliary scintigraphy study report dated 02/24/2023 FINDINGS: The patient was administered 1.0 mCi of 99m Tc sulfur colloid mixed with egg and consumed per os. Image acquisitions in the anterior-posterior projections were obtained for 230 minutes. There is prompt visualization of the stomach. There is no gastroesophageal reflux identified. First order kinetics are maintained throughout the duration of the acquisitions. The T ? raw data emptying was calculated to be 127.23 minutes, (Normal 65-110 minutes). There is 89% emptying and 11% retention at 230 minutes post meal ingestion. This extrapolates to 93% emptying and 7% retention at 240 minutes post meal ingestion. 10/08/23 0937 Date cc: Dr. Stephanie Freed MD; [facility] * Signed ADDENDUM by Dr. Dameon Joseph DO on 10/08/23 at 0937 NM/Gastric Emptying Study - 4 HR IMPRESSION: 1. There is delayed solid phase gastric emptying compared to normal controls with maintained first order kinetics throughout all components of the examination. ( et al, Gastroenterology 77: 75, 1979 Malgela et al, Semin Nucl Med 12: 116, 1980). Electronically Signed: Dameon Joseph DO at 9:37 EST , 08/16/24 1405 Date cc: Dr. Stephanie Freed MD; [facility] * Signed ADDENDUM by Dr. Dameon Joseph DO on 07/29/24 at 2603 NM/Gastric Emptying Study - 4 HR IMPRESSION: 1. ABNORMAL 99m Tc sulfur colloid solid phase gastric emptying imaging examination. A. There is abnormal solid phase gastric emptying compared to normal controls with maintained first order kinetics throughout all components of the examination. ( et al, Gastroenterology 77: 75, 1979 Yvette et al, Semin Nucl Med 12: 116, 1981 Samanta et al, [facility] Procedure Guidelines Adult Solid Meal Gastric Emptying Study 3.0 [email or web address]). Electronically Signed: Dameon Jake, DO at 21:41 EDT , (more content not included)... Normal [facility] Absolute lymphocyte countOrd ered By: Claudia Clayton on 01-27-2023 Lymphocytes Auto (Unsp spec) [#/Vol] 2.57 10*3/uL 0.83-4.51 [facility] Basophil percentageOrdered B y: Claudia Clayton on 01-27-2023 Basophils/100 WBC (Bld) 0.4 % 0-1 [facility] Chloride [Moles/Vol] 109 mmol/L 98-107 [facility] Eosinophils/100 WBC (Bld) 1.6 % 0-5 [facility] Glucose [Mass/Vol] 110 mg/dL 74-106 [facility] Comment on above: Fasting Glucose resu lt from 100 to 125 mg/dL suggests IMPAIRED HOMEOSTASIS per A.D.A. criteria. Neutrophils (Bld) [#/Vol] 5.6 10*3/uL 2.0-7.7 [facility] Neutrophils/100 WBC (Bld) 62.3 % 47-70 [facility] Potassium [Moles/Vol] 3.4 mmol/L 3.5-5.1 [facility] Sodium [Moles/Vol] 140 mmol/L 136-145 [facility] WBC (Bld) [#/Vol] 8.9 10*3/uL 4.4-11.0 [facility] Blood erythrocytes count (nu mber/volume)Ordered By: Claudia Clayton on 01-27-2023 RBC (Bld) [#/Vol] 4.75 10*6/uL 4.2-5.4 [facility] Blood hemoglobin measurement (mass/volume)Ordered By: Claudia Clayton on 01-27-2023 Hemoglobin (Bld) [Mass/Vol] 14.0 g/dL 12.0-15.0 [facility] Blood lymphocytes/100 leukoc ytesOrdered By: Claudia Clayton on 01-27-2023 Lymphocytes/100 WBC (Bld) 28.8 % 19-41 [facility] Blood monocytes/100 leukocyt esOrdered By: Claudia Clayton on 01-27-2023 Monocytes/100 WBC (Bld) 6.6 % 0-10 [facility] Blood platelet mean volumeOr dered By: Claudia Clayton on 01-27-2023 Platelet mean volume (Bld) [Entitic vol] 12.4 fL 6.2-12.0 [facility] Determination of erythrocyte mean corpuscular volume (MCV)Ordered By: Claudia Clayton on 01-27-2023 MCV (RBC) [Entitic vol] 89.1 fL 81-99 [facility] Hematocrit Auto (Bld) [Volum e fraction]Ordered By: Claudia Clayton on 01-27-2023 Hematocrit (Bld) [Volume fraction] 42.3 % 37-47 [facility] Laboratory - Chemistry and C hemistry - challengeOrdered By: Claudia Clayton on 01-27-2023 CO2 [Moles/Vol] 27.0 mmol/L 21.0-32.0 [facility] Urea nitrogen/Creatinine [Mass ratio] 12.9 mg/mg 10-20 [facility] - Hematology and Cell countsOrdered By: Claudia Clayton on 01-27-2023 Erythrocyte distribution width (RBC) [Entitic vol] 43.4 fL 35.1-43.9 [facility] Erythrocyte distribution width (RBC) [Ratio] 13.3 % 11.6-14.6 [facility] Immature granulocytes/100 WBC (Bld) 0.300 % 0.0-0.9 [facility] Comment on above: IG% - Immature Granu locytes (promyelocytes, myelocytes and metamyelocytes) > 1% indicates that a LEFT SHIFT is Present. MCH (RBC) [Entitic mass] 29.5 pg 27.0-32.0 [facility] Nucleated RBC/100 WBC (Bld) [Ratio] 0 % 0-5 [facility] Auto (RBC) [Mass/Vol]Or dered By: Claudia Clayton on 01-27-2023 MCHC (RBC) [Mass/Vol] 33.1 g/dL 32-36 [facility] No Panel InformationOrdered By: Claudia Clayton on 01-27-2023 D-Dimer Quantitative (PE/DVT) < 0.27 FEU/ug/m 0.27-0.49 [facility] Comment on above: NORMAL D-Dimer level (<0.50) indicates no DVT or PE. Estimated Creatinine Clearance Calc 92.10 ml/min [facility] Estimated GFR (MDRD) Amer 127 mL/min >60 [facility] Comment on above: GFR Calc Estimated GFR (MDRD) Non-Af Amer 105 mL/min >60 [facility] Comment on above: Non- GFR Calc Thyroid Stimulating Hormone (TSH) 1.19 uIU/mL 0.358-3.74 [facility] Troponin I High Sensitivity < 3 pg/mL 3.0-54.0 [facility] Comment on above: Please Note: [place] t Units and Gender Specific Reference Ranges. For more information see Policy Stat Procedure [place] High Sensitivity Troponin (TNIH) and attachments. Platelets bldOrdered By: Sarah Claytno on 01-27-2023 Platelets (Bld) [#/Vol] 227 10*3/uL 150-450 [facility] Serum or plasma calcium kinsey urement (mass/volume)Ordered By: Claudia Clayton on 01-27-2023 Calcium [Mass/Vol] 9.0 mg/dL 8.5-10.1 [facility] Serum or plasma creatinine m easurement (mass/volume)Ordered By: Claudia Clayton on 01-27-2023 Creatinine [Mass/Vol] 0.70 mg/dL 0.55-1.02 [facility] Comment on above: The validity of the calculated GFR & GFRAA in patients over 70 years has not been determined. Clinical correlation is essential. Serum or plasma urea nitroge n measurement (mass/volume)Ordered By: Claudia Clayton on 01-27-2023 Urea nitrogen [Mass/Vol] 9 mg/dL 7-18 [facility] Thin prep Papanicolaou smear with manual screeningOrdered By: Claudia Clayton on 01-27-2023 Thin prep Papanicolaou smear with manual screening 4 5-15 [facility] Vital Signs Date Time Vital Sign Value Performing Clinician Facility 07-12-2024 13:07-0400 Diastolic blood pressure 72 mm[Hg] Lake Newman MD Work Phone: [facility] 07-12-2024 13:07-0400 Heart rate 82 /min Lake Newman MD Work Phone: [facility] 07-12-2024 13:07-0400 Respiratory rate 18 /min Lake Newman MD Work Phone: [facility] 07-12-2024 13:07-0400 SaO2% (BldA) [Mass fraction] 100 % Lake Newman MD Work Phone: [facility] 07-12-2024 13:07-0400 Systolic blood pressure 106 mm[Hg] Lake Newman MD Work Phone: [facility] 07-12-2024 12:48-0400 Body temperature 98.01 [degF] Lake Newman MD Work Phone: [facility] 07-12-2024 12:06-0400 Body height 157.5 cm Lake Newman MD Work Phone: [facility] 07-12-2024 12:06-0400 Body mass index (BMI) [Ratio] 23.05 kg/m2 Lake Newman MD Work Phone: [facility] 07-12-2024 12:06-0400 Body weight 57.15 kg Lake Newman MD Work Phone: [facility] [employer] 06-29-2024 09:58-0400 Body height 157.5 cm Grisel Higuera PA-C Work Phone: [facility] 06-29-2024 09:58-0400 Body mass index (BMI) [Ratio] 22.5 kg/m2 Grisel Higuera PA-C Work Phone: [facility] 06-29-2024 09:58-0400 Body temperature 98.01 [degF] Grisel Friedt PA-C Work Phone: [facility] 06-29-2024 09:58-0400 Body weight 55.79 kg Grisel Friedt PA-C Work Phone: [facility] 06-29-2024 09:58-0400 Diastolic blood pressure 62 mm[Hg] Grisel Friedt PA-C Work Phone: [facility] 06-29-2024 09:58-0400 Heart rate 83 /min Grisel Friedt PA-C Work Phone: [facility] 06-29-2024 09:58-0400 Systolic blood pressure 97 mm[Hg] Grisel Friedt PA-C Work Phone: [facility] 09-10-2023 11:30-0500 Body temperature 98.29 [degF] Coy Adame MD Work Phone: [facility] 09-10-2023 11:30-0500 Diastolic blood pressure 78 mm[Hg] Coy Adame MD Work Phone: [facility] 09-10-2023 11:30-0500 Heart rate 85 /min Coy Adame MD Work Phone: [facility] 09-10-2023 11:30-0500 Respiratory rate 16 /min oCy Adame MD Work Phone: [facility] 09-10-2023 11:30-0500 SaO2% (BldA) [Mass fraction] 100 % Coy Adame MD Work Phone: [facility] 09-10-2023 11:30-0500 Systolic blood pressure 114 mm[Hg] Coy Adame MD Work Phone: [facility] 09-10-2023 10:05-0500 Body height 157.5 cm Coy Adame MD Work Phone: [facility] 09-10-2023 10:05-0500 Body mass index (BMI) [Ratio] 24.14 kg/m2 Coy Adame MD Work Phone: [facility] 09-10-2023 10:05-0500 Body weight 59.88 kg Coy Adame MD Work Phone: [facility] 07-16-2023 10:40-0400 Body temperature 98.1 [degF] Seamus Volanceer LICENSED MASSAGE THERAPIST - INFORMATION SYSTEMS ARCHITECT Work Phone: [facility] 07-16-2023 10:40-0400 Body weight 60.15 kg Seamus Volanceer LICENSED MASSAGE THERAPIST - INFORMATION SYSTEMS ARCHITECT Work Phone: [facility] 07-16-2023 10:40-0400 Diastolic blood pressure 76 mm[Hg] Seamus Volanceer LICENSED MASSAGE THERAPIST - INFORMATION SYSTEMS ARCHITECT Work Phone: [facility] 07-16-2023 10:40-0400 Heart rate 97 /min [facility] LICENSED MASSAGE THERAPIST - INFORMATION SYSTEMS ARCHITECT Work Phone: [facility] 07-16-2023 10:40-0400 Systolic blood pressure 119 mm[Hg] Seamus ethority LICENSED MASSAGE THERAPIST - INFORMATION SYSTEMS ARCHITECT Work Phone: [facility] 01-27-2023 20:30-0400 Diastolic blood pressure 75 mm[Hg] [facility] 01-27-2023 20:30-0400 Heart rate 108 /min [facility] 01-27-2023 20:30-0400 Systolic blood pressure 121 mm[Hg] [facility] 01-27-2023 20:16-0400 Respiratory rate 18 /min [facility] 01-27-2023 18:54-0400 Body height 157.48 cm [facility] 01-27-2023 18:54-0400 Body mass index (BMI) [Ratio] 24.5 kg/m2 [facility] 01-27-2023 18:54-0400 Body temperature 98.8 [degF] [facility] 01-27-2023 18:54-0400 Body weight 60.78 kg [facility] 01-27-2023 18:54-0400 SaO2% (BldA) [Mass fraction] 100 % [facility] Encounters Encounter Date Encounter Type Care Provider Facility Start: 10-01-2024 End: 10-04-2024 Refill Grisel Friedt PA-C Work Phone: [facility] [place] Start: 08-24-2024 End: 08-24-2024 Refill Grisel Friedt PA-C Work Phone: [facility] [place] Start: 07-16-2024 End: 07-16-2024 Telephone encounter Grisel Friedt PA-C Work Phone: [facility] [place] Start: 07-12-2024 End: 07-13-2024 ambulatory [facility] Facility:[facility] Start: 07-12-2024 End: 07-12-2024 Subsequent hospital visit by physician Lake Newman MD Work Phone: [facility] Endoscopy Start: 07-05-2024 End: 07-05-2024 Admission to same day surgery center Michelle Mahad PA-C Work Phone: [facility] [place] Start: 07-05-2024 End: 07-05-2024 ambulatory Michelle Mahad PA-C Work Phone: [facility] [place] Start: 07-02-2024 End: 08-27-2024 Telephone encounter Seamus Dias CNP Work Phone: [facility] [place] Comment on above: Care Coordination (A ddendum for Gastric empty study) Start: 06-29-2024 End: 06-29-2024 Office outpatient new 45 minutes Grisel Friedt PA-C Work Phone: [facility] [place] Comment on above: Nausea (Primary Dx); Generalized abdominal pain; Chronic constipation; Gastroesophageal reflux disease, unspecified whether esophagitis present Start: 06-29-2024 End: 06-29-2024 ambulatory STEPHANIE FREED [facility] Start: 04-13-2024 End: 04-13-2024 Emergency department patient visit Stephanie Freed Facility:[facility] Start: 01-06-2024 End: 01-06-2024 Office outpatient visit 25 minutes Claudia SolVeronica Dennis LICENSED MASSAGE THERAPIST - INFORMATION SYSTEMS ARCHITECT Work Phone: [facility] Comment on above: Gastroparesis (Prima ry Dx); Nausea and vomiting, unspecified vomiting type; Constipation, unspecified constipation type Start: 01-01-2024 End: 01-06-2024 ambulatory STEPHANIE FREED [facility] Start: 12-29-2023 Telephone encounter Nisreen altamirano MD Work Phone: [facility] Comment on above: Appointment Request Start: 12-04-2023 Telephone encounter Seamusra Fernandes ster LICENSED MASSAGE THERAPIST - INFORMATION SYSTEMS ARCHITECT Work Phone: [facility] Comment on above: Referral (Gastropare sis) Start: 10-16-2023 Telephone encounter Seamus Fore ster LICENSED MASSAGE THERAPIST - INFORMATION SYSTEMS ARCHITECT Work Phone: [facility] Comment on above: Advice Only Start: 10-14-2023 Telephone encounter Seamus Fore ster LICENSED MASSAGE THERAPIST - INFORMATION SYSTEMS ARCHITECT Work Phone: [facility] Start: 10-08-2023 Telephone encounter Seamus Dom ster LICENSED MASSAGE THERAPIST - INFORMATION SYSTEMS ARCHITECT Work Phone: [facility] Comment on above: Advice Only (FYI); R esults (Gastric Emptying) Start: 10-07-2023 End: 10-07-2023 ambulatory [facility] Facility:[facility] Start: 09-23-2023 End: 09-23-2023 Office outpatient visit 25 minutes Seamus Jagdishsoraya LICENSED MASSAGE THERAPIST - INFORMATION SYSTEMS ARCHITECT Work Phone: [facility] Comment on above: Nausea and vomiting, unspecified vomiting type (Primary Dx); Gastric erythema Start: 09-10-2023 End: 09-10-2023 Subsequent hospital visit by physician Coy Adame MD Work Phone: [facility] Endoscopy Comment on above: GERD (gastroesophage al reflux disease); Nausea with vomiting, unspecified Start: 07-16-2023 End: 07-16-2023 Office outpatient new 45 minutes Seamus Webb LICENSED MASSAGE THERAPIST - INFORMATION SYSTEMS ARCHITECT Work Phone: [facility] Comment on above: Nausea and vomiting, unspecified vomiting type (Primary Dx); Gastroesophageal reflux disease, unspecified whether esophagitis present Start: 01-27-2023 End: 01-27-2023 Emergency department patient visit [facility]Emergency Department Start: 01-22-2023 Patient encounter procedure [facility]Ultrasound, [facility] Procedures Date Procedure Procedure Detail Performing Clinician Start: 09-10-2023 End: 09-10-2023 Esophagogastroduodenoscopy transoral diagnostic Coy Adame MD Work Phone: Start: 01-27-2023 Plain chest X-ray Start: 01-22-2023 Ultrasonography of abdomen Plan of Treatment Date Care Activity Detail Author Start: 12-25-2066 RSV Immunization for Adults (1 - 1-dose 75+ series) RSV Immunization for Adults (1 - 1-dose 75+ series) [facility] Start: 2051 RSV Immunization aged 60 or older (1 - 1-dose 60+ series) RSV Immunization aged 60 or older (1 - 1-dose 60+ series) [facility] Start: 12-25-2041 Zoster Vaccines (1 of 2) Zoster Vaccines (1 of 2) [facility] Start: 07-27-2024 End: 07-27-2024 Patient encounter procedure 07/27/2024 8:30 AM EDT Appointment [facility] [address] [facility] [place] [id number] Grisel Higuera PA-C [address] [place] [address] [facility] Start: 07-12-2024 End: 07-12-2024 Admission to same day surgery center 07/12/2024 1:30 PM EDT - 07/12/2024 2:10 PM EDT Surgery [facility] Endoscopy [address] [place] [phone] Lake Newman MD [address] [place], [place] [id number] COLONOSCOPY WITH BIOPSY [32728 (CPT )] [facility] Endoscopy Comment on above: COLONOSCOPY WITH BIOPSY [55728 (CPT )] Start: 07-12-2024 End: 07-12-2024 Colonoscopy w/biopsy single/multiple COLONOSCOPY WITH BIOPSY Gastro-esophageal reflux disease without esophagitis 07/12/2024 1:30 PM EDT [facility] Gastroenterology Start: 07-12-2024 Subsequent hospital visit by physician 07/12/2024 1:30 PM EDT Hospital Encounter [facility] Endoscopy [address] [place] [phone] Lake Newman MD [address] [place] [address] [facility] Endoscopy Start: 07-12-2024 End: 07-12-2024 Colonoscopy w/biopsy single/multiple COLONOSCOPY WITH BIOPSY Gastro-esophageal reflux disease without esophagitis 07/12/2024 12:22 PM EDT [facility] Gastroenterology Start: 06-29-2024 End: 06-29-2025 RF Upper gastrointestinal tract and Small bowel Single view W contrast PO FL upper GI single contrast w small bowel follow through Imaging Routine Nausea Generalized abdominal pain Chronic constipation Gastroesophageal reflux disease, unspecified whether esophagitis present Expected: 06/29/2024, Expires: 06/29/2025 [facility] [employer] [facility] Work Phone: Comment on above: Expected: 06/29/2024, Expires: Start: 06-13-2024 COVID-19 Vaccine ( season) COVID-19 Vaccine ( season) [facility] Start: 06-13-2024 COVID-19 Vaccine ( season) COVID-19 Vaccine ( season) [facility] Start: 06-13-2024 Influenza vaccination Influenza Vaccine (#1) [facility] Start: 01-06-2024 End: 01-06-2024 Telemedicine consultation with patient 01/06/2024 10:30 AM EDT Telemedicine [facility] [address] [place] [phone] Claudia Dennis, LICENSED MASSAGE THERAPIST - INFORMATION SYSTEMS ARCHITECT [address] [place] [address] Arrived [facility] Comment on above: Arrived Start: 12-31-2023 End: 12-31-2023 Patient encounter procedure 12/31/2023 1:30 PM EDT Office Visit [facility] [address] [place] [address] Cuauhtemoc Ames PA-C [address] [place], [place] [phone] [facility] Start: 09-23-2023 End: 09-23-2024 NM Stomach Views for gastric emptying solid phase W radionuclide PO NM gastric emptying solid Imaging Routine Nausea and vomiting, unspecified vomiting type Expected: 09/23/2023, Expires: 09/23/2024 [facility]: Comment on above: Expected: 09/23/2023, Expires: Start: 09-23-2023 End: 09-23-2023 Telemedicine consultation with patient [facility] Start: 07-16-2023 End: 07-16-2024 CELIAC PANEL Celiac Panel Lab Routine Nausea and vomiting, unspecified vomiting type Expected: 07/16/2023 (Approximate), Expires: 07/16/2024 [facility] Work [facility]: Comment on above: Expected: 07/16/2023 (Approximate), Expi res: 07/16/2024 Start: 07-16-2023 End: 07-16-2024 Comprehensive metabolic 1998 panel - Serum or Plasma Comprehensive metabolic panel Lab Routine Nausea and vomiting, unspecified vomiting type Expected: 07/16/2023 (Approximate), Expires: 07/16/2024 [facility] Comment on above: Expected: 07/16/2023 (Approximate), Expi res: 07/16/2024 Start: 06-13-2023 COVID-19 Vaccine ( season) COVID-19 Vaccine () [facility] Start: 06-13-2023 Influenza vaccination Influenza Vaccine (#1) [facility] Start: 12-25-2021 Screening for malignant neoplasm of cervix [facility] Start: 12-25-2012 Screening for malignant neoplasm of cervix Pap Smear [facility] Start: 12-25-2010 DTaP/Tdap/Td Vaccines (1 - Tdap) DTaP/Tdap/Td Vaccines (1 - Tdap) [facility] Start: 12-25-2010 Hepatitis B Vaccines (1 of 3 - 19+ 3-dose series) Hepatitis B Vaccines (1 of 3 - 19+ 3-dose series) [facility] Start: 12-25-2009 Hepatitis C screening Hepatitis C Screening [facility] Start: 12-25-2004 Varicella vaccination Varicella Vaccines (1 of 2 - 13+ 2-dose series) [facility] Start: 2003 Depression Screening Depression Screening [facility] Start: 12-25-1992 MMR Vaccines (1 of 1 - Standard series) MMR Vaccines (1 of 1 - Standard series) [facility] Start: 12-25-1992 Varicella vaccination Varicella Vaccines (1 of 2 - 2-dose childhood series) [facility] Start: 06-27-1992 COVID-19 Vaccine (#1) COVID-19 Vaccine (#1) [facility] Start: 1991 Hepatitis B Vaccines (1 of 3 - 3-dose series) Hepatitis B Vaccines (1 of 3 - 3-dose series) [facility] Start: 1990 HIV screening HIV Screening [facility] Patient Education ED Palpitations [facility] Work Phone: Patient referral [facility] Work Phone: Tissue exam [facility] Work Phone: Comment on above: Release Upon Ordering for 1 Occurrences starting 09/10/2023 Payers Date Payer Category Payer Self-pay [id number] 2019 [employer] - [employer] KATTY ASTUDILLO [id number] 2019 Unknown [id number] 2016 Unknown [id number] Unknown [id number] Unknown [id number] Unknown [id number] Social History Date Type Detail Facility Start: [facility]27[facility]2023 [facility] Start: 10-14-2020 None [facility] Start: 10-14-2020 With Family [facility] Start: 1990 Sex Assigned At Female W [facility] Start: 07-16-2023 [facility] Start: 07-16-2023 Tobacco use and exposure Smokeless tobacco non-user [facility] Start: 07-16-2023 End: 01-06-2024 Alcohol intake Lifetime non-drinker (finding) [facility] Start: 07-09-2023 Gender identity Identifies as female gender (finding) [facility] Start: 07-09-2023 Sexual orientation Heterosexual (fin ding) [facility] Start: 09-10-2023 End: 07-16-2024 History of Social function [facility] Start: 09-10-2023 End: 07-16-2024 Tobacco use panel [facility] Start: 06-29-2024 End: 07-16-2024 Alcoholic beverage intake Current drinker of alcohol (finding) [facility] Start: 06-29-2024 Alcohol Comment RARELY [facility] Start: 05-15-2023 Sex Female (finding) [facility] NEGATED: Highlighted row [facility] Mental Status Date Assessment Result Facility 01-27-2023 Cognitive function Level Of Cons ciousness Awake;Alert;Appropriate;Follow s Commands [facility] Work Phone: Clinical Notes 07-16-2023 to 10-04-2024 Telephone Encounter - Parag Diaz MA - 10/04/2024 8:49 AM ESTTelephone Encounter - Parag Diaz MA - 10/04/2024 8:49 AM ESTTelephone Encounter - Grisel Higuera PA-C - 10/04/2024 8:13 AM EST Note Date & Type Note Facility 10-04-2024 Telephone encounter Note Lvm informing pt that Grisel did refill the phenergan. Since no longer following with us, future refills will need to come from PCP/GI. [facility] 10-04-2024 Miscellaneous Notes Lvm informing pt that Grisel did refill the phenergan. Since no longer following with us, future refills will need to come from PCP/GI. Please let patient know I did refill the phenergan. Since no longer following with us, future refills will need to come from PCP/GI. Thanks documented in this encounter [facility] 10-04-2024 Telephone encounter Note Please let patient know I did refill the phenergan. Since no longer following with us, future refills will need to come from PCP/GI. Thanks [facility] 08-16-2024 Telephone encounter Note Noted. Thank you. Impression again abnormal, consistent with delayed emptying. [facility] Work Phone: 08-16-2024 Miscellaneous Notes Noted. Thank you. Impression again abnormal, consistent with delayed emptying. Images from the original note were not included. I called [facility] radiology to see if addendum to report is ready? Yes, they are faxing it over. Updated Report received for Gastric Emptying study: Has updated report been received? Did not see anything in media. Thank you! I called [facility] again and was told to call [facility] radiology to make the request for changes. I spoke to them and they will send an Addendum request to Dr Joseph and send us a new copy. I called [facility] and Radiology dept transferred me to the [facility]. I left him a message with pt name, , and reason, I left our back line phone number for them to call me back. Patient seen by surgery 06/29/2024. Upon re-review of GES, findings does not match impression which states there is delayed solid phase gastric emptying compared to normal controls. Findings suggest normal GES as noted by surgery team. Patient undergoing additional work-up by ALS for continued symptoms. GI Staff-please request clarification of impression of GES from radiologist (Dr. Dameon Joseph). Patient completed test at [facility]. Thank you! documented in this encounter [facility] 08-16-2024 Telephone encounter Note Images from the original note were not included. I called [facility] radiology to see if addendum to report is ready? Yes, they are faxing it over. Updated Report received for Gastric Emptying study: [facility] 08-10-2024 Telephone encounter Note Has updated report been received? Did not see anything in media. Thank you! [facility] 07-29-2024 Telephone encounter Note I called [facility] again and was told to call [facility] radiology to make the request for changes. I spoke to them and they will send an Addendum request to Dr Joseph and send us a new copy. [facility] 07-16-2024 Telephone encounter Note Pt states she is having decent BMs, and stopped Miralax while on vacation. -started Miralax now that she is home -nausea is a little better, no pain really *said she would call back in if she needs anything else or her nausea gets worse [facility] 07-16-2024 Miscellaneous Notes Pt states she is having decent BMs, and stopped Miralax while on vacation. -started Miralax now that she is home -nausea is a little better, no pain really *said she would call back in if she needs anything else or her nausea gets worse Attempted to call patient to discuss UGI w/sbft results. Patient's testing was normal. Her colonoscopy was normal. Requested call back to see how she is feeling and if having regular bowel movements and if so, has this helped with pain. When patient calls back, please relay normal results and ask how feeling. documented in this encounter [facility] 07-16-2024 Telephone encounter Note Attempted to call patient to discuss UGI w/sbft results. Patient's testing was normal. Her colonoscopy was normal. Requested call back to see how she is feeling and if having regular bowel movements and if so, has this helped with pain. When patient calls back, please relay normal results and ask how feeling. [facility] 07-12-2024 Note Patient: Joseph meyer Procedure Summary Date: 07/12/24 [facility] Gastroenterology Anesthesia Start: 1222 Anesthesia Stop: 1249 Procedure: COLONOSCOPY WITH BIOPSY Diagnosis: Gastro-esophageal reflux disease without esophagitis Providers: Lake Newman MD Responsible Provider: Polo Umaña MD Anesthesia Type: TIVA ASA Status: 2 Anesthesia Type: TIVA Vitals Value Taken Time BP 94/59 07/12/24 1248 Temp 36.7 ?C (98 ?F) 07/12/24 1248 Pulse 90 07/12/24 1248 Resp 16 07/12/24 1248 SpO2 98 % 07/12/24 1248 Anesthesia Post Evaluation Patient location during evaluation: PACU Patient participation: complete - patient participated Level of consciousness: awake and alert Pain management: satisfactory to patient Airway patency: patent Dental Injury: no Cardiovascular status: acceptable, blood pressure returned to baseline and hemodynamically stable Respiratory status: acceptable and spontaneous ventilation Hydration status: euvolemic Nausea/Vomiting: controlled No notable events documented. Patient can be discharged once all PACU criteria has been met. [facility] 07-12-2024 Note Patient: Joseph meyer Procedure Summary Date: 07/12/24 Room / Location: [place] [address] / [facility] Gastroenterology Anesthesia Start: 1222 Anesthesia Stop: 1249 Procedure: COLONOSCOPY WITH BIOPSY Diagnosis: Gastro-esophageal reflux disease without esophagitis Providers: Lake Newman MD Responsible Provider: Polo Umaña MD Anesthesia Type: TIVA ASA Status: 2 Anesthesia Type: TIVA Vitals Value Taken Time BP 94/59 07/12/24 1248 Temp 36.7 ?C (98 ?F) 07/12/24 1248 Pulse 90 07/12/24 1248 Resp 16 07/12/24 1248 SpO2 98 % 07/12/24 1248 Anesthesia Post Evaluation Patient location during evaluation: PACU Patient participation: waiting for patient participation Level of consciousness: sleepy but conscious Pain management: satisfactory to patient Multimodal analgesia pain management approach Airway patency: patent Two or more strategies used to mitigate risk of obstructive sleep apnea Cardiovascular status: acceptable and hemodynamically stable Respiratory status: acceptable Hydration status: acceptable No notable events documented. MIPS #430 PONV Patient did not receive an inhalational anesthetic (XX430) MIPS # 424 Perioperative Temperature Management Anesthesia time was less than 60 minutes (4256F) MIPS #477 Multimodal Pain Management Not emergent case Patient was not administered multimodal pain management (G2149) Patient reports no pain in PACU (G2149) MIPS #404 Anesthesiology Smoking Abstinence The patient is not a current smoker (e.g. cigarette, cigar, pipe, e-cigarette/vaping/marijuana) If no stop here (XX404) I completed my handoff to the receiving clinician during which we: 1. Identified the patient 2. Identified the responsible provider 3. Reviewed the pertinent medical history 4. Discussed the surgical course 5. Reviewed intra-op anesthesia management and issues during anesthesia 6. Set expectations for post-procedure period 7. Allowed opportunity for questions and acknowledgement of understanding. [facility] 07-12-2024 History and physical note Images from the original note were not included. Advanced Laparoscopic Surgery History and Physical CHIEF COMPLAINT: nausea/constipation HPI: Joseph Petit is a 33 y.o. female who presents for diagnostic colonoscopy PMHx: Past Medical History: Diagnosis Date Constipation Endometriosis Nausea PSHx: Past Surgical History: Procedure Laterality Date COLONOSCOPY W/ BIOPSIES N/A 07/12/2024 Performed by Lake Newman MD at [facility] ENDOSCOPY EGD (HISTORICAL) 09/10/[address] Adame HYSTERECTOMY LAPAROSCOPY DIAGNOSTIC / BIOPSY / ASPIRATION / LYSIS for endometriosis WISDOM TOOTH EXTRACTION 2013 PFMHx: Family History Problem Relation Name Age of Onset Thyroid disease Mother Hypertension Father Emphysema Father ALL: No Known Allergies MEDS: @MEDCMED@ SOCIAL Hx: Social History Socioeconomic History Marital status: Spouse name: Not on file Number of children: Not on file Years of education: Not on file Highest education level: Not on file Occupational History Not on file Tobacco Use Smoking status: Never Smokeless tobacco: Never Vaping Use Vaping status: Never Used Substance and Sexual Activity Alcohol use: Yes Alcohol/week: 2.0 standard drinks of alcohol Types: 1 Glasses of wine, 1 Shots of liquor per week Comment: RARELY Drug use: Never Sexual activity: Yes Partners: Male control/protection: Female Sterilization Other Topics Concern Not on file Social History Narrative Not on file Social Determinants of Health Financial Resource Strain: Not on file Food Insecurity: Not on file Transportation Needs: Not on file Physical Activity: Not on file Stress: Not on file Social Connections: Not on file Intimate Partner Violence: Not on file Housing Stability: Not on file Review of Systems: I personally reviewed the review of systems with the patient. The ROS is negative except for what is listed in HPI. Physical Examination: BP 117/78 Pulse 98 Temp 36.7 C (98.1 F) (Temporal) Resp 16 Ht 5' 2 (1.575 m) Wt 126 lb (57.2 kg) SpO2 99% BMI 23.05 kg/m She stands @FLOWAMB(11)@ tall with a weight of @FLOWAMB(14)@ , resulting in a BMI of Body mass index is 23.05 kg/m .. General: The patient is awake, alert, and oriented, and is in no apparent distress. Normal affect. Head and Neck: Normocephalic and atraumatic. Supple, no thyromegaly. Cardiac: Regular rate and rhythm without evidence of murmur. No obvious carotid bruits. Respiratory: Clear to auscultation bilaterally. Good inspiratory effort. Abdomen: Soft, nt/nd Extremities: Ambulatory without assistance. Neurological: Intact sensation in 4 extremities, no focal deficits notes. Skin: No rashes or lesions noted. Warm and dry. Rectal: Not done. Hernia: no hernias found on exam Assessment and Plan Active Problems: There are no active Hospital Problems. Plan: 33 y.o. female who presents for diagnostic colonoscopy Proceed with diagnostic colonoscopy The patient is aware of the risks and benefits of colonoscopy with biopsy including, but not limited to, missed lesions, possibility of benign or malignant findings, perforation of the colon or surrounding structures, bleeding, pain, as well as anesthetic complications related to the conscious sedation provided by the department of anesthesia. Patient understands and wishes to proceed with recommendations. [employer] Work Phone: 07-12-2024 Note Advanced Laparoscopi c Surgery History and Physical CHIEF COMPLAINT: nausea/constipation HPI: Joseph Petit is a 33 y.o. female who presents for diagnostic colonoscopy PMHx: Past Medical History: Diagnosis Date Constipation Endometriosis Nausea PSHx: Past Surgical History: Procedure Laterality Date COLONOSCOPY W/ BIOPSIES N/A 07/12/2024 Performed by Lake Newman MD at [facility] ENDOSCOPY EGD (HISTORICAL) 09/10/[address] Adame HYSTERECTOMY LAPAROSCOPY DIAGNOSTIC / BIOPSY / ASPIRATION / LYSIS for endometriosis WISDOM TOOTH EXTRACTION 2013 PFMHx: Family History Problem Relation Name Age of Onset Thyroid disease Mother Hypertension Father Emphysema Father ALL: No Known Allergies MEDS: @MEDCMED@ SOCIAL Hx: Social History Socioeconomic History Marital status: Spouse name: Not on file Number of children: Not on file Years of education: Not on file Highest education level: Not on file Occupational History Not on file Tobacco Use Smoking status: Never Smokeless tobacco: Never Vaping Use Vaping status: Never Used Substance and Sexual Activity Alcohol use: Yes Alcohol/week: 2.0 standard drinks of alcohol Types: 1 Glasses of wine, 1 Shots of liquor per week Comment: RARELY Drug use: Never Sexual activity: Yes Partners: Male control/protection: Female Sterilization Other Topics Concern Not on file Social History Narrative Not on file Social Determinants of Health Financial Resource Strain: Not on file Food Insecurity: Not on file Transportation Needs: Not on file Physical Activity: Not on file Stress: Not on file Social Connections: Not on file Intimate Partner Violence: Not on file Housing Stability: Not on file Review of Systems: I personally reviewed the review of systems with the patient. The ROS is negative except for what is listed in HPI. Physical Examination: BP 117/78 Pulse 98 Temp 36.7 ?C (98.1 ?F) (Temporal) Resp 16 Ht 5' 2 (1.575 m) Wt 126 lb (57.2 kg) SpO2 99% BMI 23.05 kg/m? She stands @FLOWAMB(11)@ tall with a weight of @FLOWAMB(14)@ , resulting in a BMI of Body mass index is 23.05 kg/m?.. General: The patient is awake, alert, and oriented, and is in no apparent distress. Normal affect. Head and Neck: Normocephalic and atraumatic. Supple, no thyromegaly. Cardiac: Regular rate and rhythm without evidence of murmur. No obvious carotid bruits. Respiratory: Clear to auscultation bilaterally. Good inspiratory effort. Abdomen: Soft, nt/nd Extremities: Ambulatory without assistance. Neurological: Intact sensation in 4 extremities, no focal deficits notes. Skin: No rashes or lesions noted. Warm and dry. Rectal: Not done. Hernia: no hernias found on exam Assessment and Plan Active Problems: There are no active Hospital Problems. Plan: 33 y.o. female who presents for diagnostic colonoscopy Proceed with diagnostic colonoscopy The patient is aware of the risks and benefits of colonoscopy with biopsy including, but not limited to, missed lesions, possibility of benign or malignant findings, perforation of the colon or surrounding structures, bleeding, pain, as well as anesthetic complications related to the conscious sedation provided by the department of anesthesia. Patient understands and wishes to proceed with recommendations. [facility] 07-12-2024 History and physical note Images from the original note were not included. Advanced Laparoscopic Surgery History and Physical CHIEF COMPLAINT: nausea/constipation HPI: Joseph Petit is a 33 y.o. female who presents for diagnostic colonoscopy PMHx: Past Medical History: Diagnosis Date Constipation Endometriosis Nausea PSHx: Past Surgical History: Procedure Laterality Date COLONOSCOPY W/ BIOPSIES N/A 07/12/2024 Performed by Lake Newman MD at [facility] ENDOSCOPY EGD (HISTORICAL) 09/10/[address] Adame HYSTERECTOMY LAPAROSCOPY DIAGNOSTIC / BIOPSY / ASPIRATION / LYSIS for endometriosis WISDOM TOOTH EXTRACTION 2013 PFMHx: Family History Problem Relation Name Age of Onset Thyroid disease Mother Hypertension Father Emphysema Father ALL: No Known Allergies MEDS: @MEDCMED@ SOCIAL Hx: Social History Socioeconomic History Marital status: Spouse name: Not on file Number of children: Not on file Years of education: Not on file Highest education level: Not on file Occupational History Not on file Tobacco Use Smoking status: Never Smokeless tobacco: Never Vaping Use Vaping status: Never Used Substance and Sexual Activity Alcohol use: Yes Alcohol/week: 2.0 standard drinks of alcohol Types: 1 Glasses of wine, 1 Shots of liquor per week Comment: RARELY Drug use: Never Sexual activity: Yes Partners: Male control/protection: Female Sterilization Other Topics Concern Not on file Social History Narrative Not on file Social Determinants of Health Financial Resource Strain: Not on file Food Insecurity: Not on file Transportation Needs: Not on file Physical Activity: Not on file Stress: Not on file Social Connections: Not on file Intimate Partner Violence: Not on file Housing Stability: Not on file Review of Systems: I personally reviewed the review of systems with the patient. The ROS is negative except for what is listed in HPI. Physical Examination: BP 117/78 Pulse 98 Temp 36.7 C (98.1 F) (Temporal) Resp 16 Ht 5' 2 (1.575 m) Wt 126 lb (57.2 kg) SpO2 99% BMI 23.05 kg/m She stands @FLOWAMB(11)@ tall with a weight of @FLOWAMB(14)@ , resulting in a BMI of Body mass index is 23.05 kg/m .. General: The patient is awake, alert, and oriented, and is in no apparent distress. Normal affect. Head and Neck: Normocephalic and atraumatic. Supple, no thyromegaly. Cardiac: Regular rate and rhythm without evidence of murmur. No obvious carotid bruits. Respiratory: Clear to auscultation bilaterally. Good inspiratory effort. Abdomen: Soft, nt/nd Extremities: Ambulatory without assistance. Neurological: Intact sensation in 4 extremities, no focal deficits notes. Skin: No rashes or lesions noted. Warm and dry. Rectal: Not done. Hernia: no hernias found on exam Assessment and Plan Active Problems: There are no active Hospital Problems. Plan: 33 y.o. female who presents for diagnostic colonoscopy Proceed with diagnostic colonoscopy The patient is aware of the risks and benefits of colonoscopy with biopsy including, but not limited to, missed lesions, possibility of benign or malignant findings, perforation of the colon or surrounding structures, bleeding, pain, as well as anesthetic complications related to the conscious sedation provided by the department of anesthesia. Patient understands and wishes to proceed with recommendations. documented in this encounter [facility] 07-12-2024 Note Patient: Joseph meyer Procedure Information Date/Time: 07/12/24 1250 Procedure: COLONOSCOPY WITH BIOPSY - 40 MINUTES Location: [place] [address] / [facility] Gastroenterology Providers: Lake Newman MD Relevant Problems No relevant active problems Past Medical History: Past Medical History: No date: Constipation No date: Endometriosis No date: Nausea Past Surgical History: Past Surgical History: 07/12/2024: COLONOSCOPY W/ BIOPSIES; N/A Comment: Performed by Lake Newman MD at [facility] ENDOSCOPY 09/10/2023: EGD (HISTORICAL) Comment: EGD DIAGNOSTIC Dr. Adame No date: HYSTERECTOMY No date: LAPAROSCOPY DIAGNOSTIC / BIOPSY / ASPIRATION / LYSIS Comment: for endometriosis 2014: WISDOM TOOTH EXTRACTION Social History: TOBACCO: reports that she has never smoked. She has never used smokeless tobacco. ETOH: reports current alcohol use of about 2.0 standard drinks of alcohol per week. Social History Substance and Sexual Activity Drug Use Never Family History: Family History Problem Relation Name Age of Onset Thyroid disease Mother Hypertension Father Emphysema Father Screening: Hysterectomy Clinical information reviewed: Tobacco Allergies Meds Med Hx Surg Hx OB Status Fam Hx Soc Hx Physical Exam Airway Mallampati: I TM distance: >3 FB Neck ROM: full Mouth Open: normal Cardiovascular Dental dentition normal Pulmonary Abdominal Anesthesia Plan patient is NPO appropriate Any family history or previous problems with anesthesia no ASA 2 TIVA Any family history or previous problems with anesthesia no The patient is not a current smoker. Anesthetic plan and risks discussed with patient. [facility] Screening Labs: No results found for: WBC, HGB, HCT, MCV, PLT Lab Results Component Value Date SODIUM 140 07/16/2023 POTASSIUM 3.7 07/16/2023 CHLORIDE 105 07/16/2023 CO2 24 07/16/2023 BUN 8 07/16/2023 CREATININE 0.59 07/16/2023 GLUCOSE 87 07/16/2023 CALCIUM 9.3 07/16/2023 PROT 7.2 07/16/2023 ALKPHOS 46 07/16/2023 AST 15 07/16/2023 ALT 16 07/16/2023 EGFR 123 07/16/2023 GLOB 2.3 07/16/2023 No echocardiogram results found for the past 14 days No results found for this or any previous visit. Equipment Requests: Additional Equipment Requests [facility] 07-12-2024 Note Formatting of this n ote might be different from the original. [facility] Joseph Petit Procedure Date: 07/12/2024 12:20 PM Gender: Female Date of : 1990 Age: 33 Admit Type: Ambulatory Note Status: Finalized Endoscopist: Lake Newman MD, [id number] Procedure: Colonoscopy Indications: Constipation Findings: The colon (entire examined portion) appeared normal. Impression: - The entire examined colon is normal. - No specimens collected. Recommendation: - Patient has a contact number available for emergencies. The signs and symptoms of potential delayed complications were discussed with the patient. Return to normal activities tomorrow. Written discharge instructions were provided to the patient. - Repeat colonoscopy PRN. - Resume previous diet. - Continue present medications. - Resume anticoagulant at prior dose today. Referring MD: Stephanie Freed Medicines: Monitored Anesthesia Care Procedure: Pre-Anesthesia Assessment: - Prior to the procedure, a History and Physical was performed, and patient medications and allergies were reviewed. The patient's tolerance of previous anesthesia was also reviewed. The risks and benefits of the procedure and the sedation options and risks were discussed with the patient. All questions were answered, and informed consent was obtained. Prior Anticoagulants: The patient has taken no anticoagulant or antiplatelet agents. ASA Grade Assessment: per anesthesia endoscopic documentation. After reviewing the risks and benefits, the patient was deemed in satisfactory condition to undergo the procedure. After I obtained informed consent, the scope was passed under direct vision. Throughout the procedure, the patient's blood pressure, pulse, and oxygen saturations were monitored continuously. The Colonoscope was introduced through the anus and advanced to the cecum, identified by appendiceal orifice and ileocecal valve. The colonoscopy was performed without difficulty. The patient tolerated the procedure well. The quality of the bowel preparation was adequate. The terminal ileum, ileocecal valve, appendiceal orifice, and rectum were photographed. Complications: No immediate complications. Procedure Code(s): --- Professional --- 96108, Colonoscopy, flexible; diagnostic, including collection of specimen(s) by brushing or washing, when performed (separate procedure) --- Technical --- 96033, Colonoscopy, flexible; diagnostic, including collection of specimen(s) by brushing or washing, when performed (separate procedure) Diagnosis Code(s): --- Professional --- K59.00, Constipation, unspecified --- Technical --- K59.00, Constipation, unspecified CPT copyright 2021 [employer]. All rights reserved. The codes documented in this report are preliminary and upon facility maintenance technician review may be revised to meet current compliance requirements. Attending Participation: I personally performed the entire procedure. Lake Newman MD. Lake Newman MD 07/12/2024 1:49:20 PM This report has been signed electronically. Number of Addenda: 0 Note Initiated On: 07/12/2024 12:20 PM [facility] 07-12-2024 Note Formatting of this n ote might be different from the original. [facility]: Joseph Petit Procedure Date: 07/12/2024 12:20 PM Gender: Female Date of : 1990 Age: 33 Admit Type: Ambulatory Note Status: Finalized Endoscopist: Lake Newman MD, [id number] Procedure: Colonoscopy Indications: Constipation Findings: The colon (entire examined portion) appeared normal. Impression: - The entire examined colon is normal. - No specimens collected. Recommendation: - Patient has a contact number available for emergencies. The signs and symptoms of potential delayed complications were discussed with the patient. Return to normal activities tomorrow. Written discharge instructions were provided to the patient. - Repeat colonoscopy PRN. - Resume previous diet. - Continue present medications. - Resume anticoagulant at prior dose today. Referring MD: Stephanie Freed Medicines: Monitored Anesthesia Care Procedure: Pre-Anesthesia Assessment: - Prior to the procedure, a History and Physical was performed, and patient medications and allergies were reviewed. The patient's tolerance of previous anesthesia was also reviewed. The risks and benefits of the procedure and the sedation options and risks were discussed with the patient. All questions were answered, and informed consent was obtained. Prior Anticoagulants: The patient has taken no anticoagulant or antiplatelet agents. ASA Grade Assessment: per anesthesia endoscopic documentation. After reviewing the risks and benefits, the patient was deemed in satisfactory condition to undergo the procedure. After I obtained informed consent, the scope was passed under direct vision. Throughout the procedure, the patient's blood pressure, pulse, and oxygen saturations were monitored continuously. The Colonoscope was introduced through the anus and advanced to the cecum, identified by appendiceal orifice and ileocecal valve. The colonoscopy was performed without difficulty. The patient tolerated the procedure well. The quality of the bowel preparation was adequate. The terminal ileum, ileocecal valve, appendiceal orifice, and rectum were photographed. Complications: No immediate complications. Procedure Code(s): --- Professional --- 29196, Colonoscopy, flexible; diagnostic, including collection of specimen(s) by brushing or washing, when performed (separate procedure) --- Technical --- 41767, Colonoscopy, flexible; diagnostic, including collection of specimen(s) by brushing or washing, when performed (separate procedure) Diagnosis Code(s): --- Professional --- K59.00, Constipation, unspecified --- Technical --- K59.00, Constipation, unspecified CPT copyright 2021 [employer]. All rights reserved. The codes documented in this report are preliminary and upon facility maintenance technician review may be revised to meet current compliance requirements. Attending Participation: I personally performed the entire procedure. Lake Newman MD. Lake Newman MD 07/12/2024 1:49:20 PM This report has been signed electronically. Number of Addenda: 0 Note Initiated On: 07/12/2024 12:20 PM [facility] [employer] 07-12-2024 Note Endoscopy [facility] Patient Name: Joseph Petit Procedure Date: 07/12/2024 12:20 PM Gender: Female Date of : 1990 Age: 33 Admit Type: Ambulatory Note Status: Finalized Endoscopist: Lake Newman MD, [id number] Procedure: Colonoscopy Indications: Constipation Findings: The colon (entire examined portion) appeared normal. Impression: - The entire examined colon is normal. - No specimens collected. Recommendation: - Patient has a contact number available for emergencies. The signs and symptoms of potential delayed complications were discussed with the patient. Return to normal activities tomorrow. Written discharge instructions were provided to the patient. - Repeat colonoscopy PRN. - Resume previous diet. - Continue present medications. - Resume anticoagulant at prior dose today. Referring MD: Stephanie Freed Medicines: Monitored Anesthesia Care Procedure: Pre-Anesthesia Assessment: - Prior to the procedure, a History and Physical was performed, and patient medications and allergies were reviewed. The patient's tolerance of previous anesthesia was also reviewed. The risks and benefits of the procedure and the sedation options and risks were discussed with the patient. All questions were answered, and informed consent was obtained. Prior Anticoagulants: The patient has taken no anticoagulant or antiplatelet agents. ASA Grade Assessment: per anesthesia endoscopic documentation. After reviewing the risks and benefits, the patient was deemed in satisfactory condition to undergo the procedure. After I obtained informed consent, the scope was passed under direct vision. Throughout the procedure, the patient's blood pressure, pulse, and oxygen saturations were monitored continuously. The Colonoscope was introduced through the anus and advanced to the cecum, identified by appendiceal orifice and ileocecal valve. The colonoscopy was performed without difficulty. The patient tolerated the procedure well. The quality of the bowel preparation was adequate. The terminal ileum, ileocecal valve, appendiceal orifice, and rectum were photographed. Complications: No immediate complications. Procedure Code(s): --- Professional --- 42561, Colonoscopy, flexible; diagnostic, including collection of specimen(s) by brushing or washing, when performed (separate procedure) --- Technical --- 46799, Colonoscopy, flexible; diagnostic, including collection of specimen(s) by brushing or washing, when performed (separate procedure) Diagnosis Code(s): --- Professional --- K59.00, Constipation, unspecified --- Technical --- K59.00, Constipation, unspecified CPT copyright 2021 [employer]. All rights reserved. The codes documented in this report are preliminary and upon facility maintenance technician review may be revised to meet current compliance requirements. Attending Participation: I personally performed the entire procedure. Lake Newman MD. Lake Newman MD 07/12/2024 1:49:20 PM This report has been signed electronically. Number of Addenda: 0 Note Initiated On: 07/12/2024 12:20 PM [facility] 07-12-2024 Miscellaneous Notes [facility] Name: Joseph Petit Procedure Date: 07/12/2024 12:20 PM Gender: Female Date of : 1990 Age: 33 Admit Type: Ambulatory Note Status: Finalized Endoscopist: Lake Newman MD, [id number] Procedure: Colonoscopy Indications: Constipation Findings: The colon (entire examined portion) appeared normal. Impression: - The entire examined colon is normal. - No specimens collected. Recommendation: - Patient has a contact number available for emergencies. The signs and symptoms of potential delayed complications were discussed with the patient. Return to normal activities tomorrow. Written discharge instructions were provided to the patient. - Repeat colonoscopy PRN. - Resume previous diet. - Continue present medications. - Resume anticoagulant at prior dose today. Referring MD: Stephanie Freed Medicines: Monitored Anesthesia Care Procedure: Pre-Anesthesia Assessment: - Prior to the procedure, a History and Physical was performed, and patient medications and allergies were reviewed. The patient's tolerance of previous anesthesia was also reviewed. The risks and benefits of the procedure and the sedation options and risks were discussed with the patient. All questions were answered, and informed consent was obtained. Prior Anticoagulants: The patient has taken no anticoagulant or antiplatelet agents. ASA Grade Assessment: per anesthesia endoscopic documentation. After reviewing the risks and benefits, the patient was deemed in satisfactory condition to undergo the procedure. After I obtained informed consent, the scope was passed under direct vision. Throughout the procedure, the patient's blood pressure, pulse, and oxygen saturations were monitored continuously. The Colonoscope was introduced through the anus and advanced to the cecum, identified by appendiceal orifice and ileocecal valve. The colonoscopy was performed without difficulty. The patient tolerated the procedure well. The quality of the bowel preparation was adequate. The terminal ileum, ileocecal valve, appendiceal orifice, and rectum were photographed. Complications: No immediate complications. Procedure Code(s): --- Professional --- 03786, Colonoscopy, flexible; diagnostic, including collection of specimen(s) by brushing or washing, when performed (separate procedure) --- Technical --- 66997, Colonoscopy, flexible; diagnostic, including collection of specimen(s) by brushing or washing, when performed (separate procedure) Diagnosis Code(s): --- Professional --- K59.00, Constipation, unspecified --- Technical --- K59.00, Constipation, unspecified CPT copyright 2021 [employer]. All rights reserved. The codes documented in this report are preliminary and upon facility maintenance technician review may be revised to meet current compliance requirements. Attending Participation: I personally performed the entire procedure. Lake Newman MD. Lake Newman MD 07/12/2024 1:49:20 PM This report has been signed electronically. Number of Addenda: 0 Note Initiated On: 07/12/2024 12:20 PM documented in this encounter [facility] 07-02-2024 Telephone encounter Note I called [facility] and Radiology dept transferred me to the [facility]. I left him a message with pt name, , and reason, I left our back line phone number for them to call me back. [facility] 07-02-2024 Telephone encounter Note Patient seen by surgery 06/29/2024. Upon re-review of GES, findings does not match impression which states there is delayed solid phase gastric emptying compared to normal controls. Findings suggest normal GES as noted by surgery team. Patient undergoing additional work-up by ALS for continued symptoms. GI Staff-please request clarification of impression of GES from radiologist (Dr. Dameon Joseph). Patient completed test at [facility]. Thank you! [facility] 06-29-2024 History of Presen t illness Narrative Images from the original note were not included. [facility] - Surgery [facility] Patient Name: Joseph Petit Date: 06/29/24 HPI: Joseph Petit is a 33 y.o. female who presents with nausea. Reports daily nausea over the past 1-2 years. Can become severe at night and sensation of needing to throw up keeps her up all night. Has tried zofran and phenergan; believes phenergan works better. Will have reflux/heartburn but states this is mild. Has tried zantac, pepcid and prilosec without improvement. States tried all three medications for at least a month each but does not recall dose. Has undergone upper endoscopy that showed gastritis but was otherwise unremarkable. She has tried elimination diet without improvement. She does not notice any correlation between severity of nausea and eating. She does have chronic constipation which she states has worsened over the past 1-2 years as well. Will take miralax if she hasn't had a bowel movement after 3 days and then will have severe lower abdominal cramping followed by multiple frequent loose stool throughout the day. She does notice a pattern with severe nausea and constipation. Underwent US and HIDA that was negative for gallstones and EF of 97%. She denies any abdominal pain or worsening of nausea with HIDA test. She has never had a colonoscopy. She was diagnosed with gastroparesis but her GES was normal with 7% retained material at 4 hrs. She states because she was told she had gastroparesis she has been researching and has tried gastroparesis diet and no improvement. Was started on Reglan and states as long as she takes the antiemetic medication along with the reglan, the severe nights are less frequent but still with daily nausea. Was referred for placement of gastric neurostimulator. She was originally referred to [facility] gastroparesis clinic but because the GES was normal, she was not accepted as a patient. Previous abdominal surgeries of laparoscopy and hysterectomy for endometriosis. She is overall healthy. She does not smoke. Rare ETOH. No recreational drug use. Denies any history of substance abuse. I personally reviewed the patient intake form and discussed the ROS with the patient. The ROS is negative except for what is listed in HPI. 4 hr GES 10/08/25 @ [facility] reviewed EGD 09/10/23 Dr Adame reviewed HIDA 02/24/23 @ [place] reviewed US abd 01/22/23 @ [place] reviewed PMHx: Past Medical History: Diagnosis Date Endometriosis PSHx: Past Surgical History: Procedure Laterality Date EGD (HISTORICAL) 09/10/[address] Adame HYSTERECTOMY LAPAROSCOPY DIAGNOSTIC / BIOPSY / ASPIRATION / LYSIS for endometriosis WISDOM TOOTH EXTRACTION 2013 PFMHx: Family History Problem Relation Name Age of Onset Thyroid disease Mother Hypertension Father Emphysema Father ALL: No Known Allergies MEDS: Current Outpatient Medications Medication Sig Dispense Refill Zofran 4 MG tablet promethazine (Phenergan) 25 MG tablet Take 1 tablet (25 mg) by mouth every 8 hours as needed for nausea or vomiting. 45 tablet 1 No current facility-administered medications for this visit. SOCIAL Hx: Social History Socioeconomic History Marital status: Spouse name: Not on file Number of children: Not on file Years of education: Not on file Highest education level: Not on file Occupational History Not on file Tobacco Use Smoking status: Never Smokeless tobacco: Never Vaping Use Vaping status: Never Used Substance and Sexual Activity Alcohol use: Yes Alcohol/week: 2.0 standard drinks of alcohol Types: 1 Glasses of wine, 1 Shots of liquor per week Comment: RARELY Drug use: Never Sexual activity: Yes Partners: Male control/protection: Female Sterilization Other Topics Concern Not on file Social History Narrative Not on file Social Determinants of Health Financial Resource Strain: Not on file Food Insecurity: Not on file Transportation Needs: Not on file Physical Activity: Not on file Stress: Not on file Social Connections: Not on file Intimate Partner Violence: Not on file Housing Stability: Not on file DIAGNOSTIC EVALUATION: 4 hr GES 10/08/23 [place] EGD 09/10/23 Dr Adame Pathology 09/10/23 Final Diagnosis A. DUODENUM, BIOPSY: - INTESTINAL MUCOSA WITH NO SIGNIFICANT PATHOLOGIC CHANGES Comment: The villous architecture is normal, and there is no significant intraepithelial Iymphocytosis or crypt hyperplasia. B. STOMACH, BIOPSY: - GASTRIC MUCOSA WITH NO SIGNIFICANT PATHOLOGIC CHANGES Comment: H&E stain is negative for H. pylori. No significant active inflammation present. Negative for intestinal metaplasia or malignancy. HIDA 02/24/23 @ [facility] US Abd 01/22/23 @ [facility] Physical Examination: BP 97/62 (BP Location: Right arm, Patient Position: Sitting, BP Cuff Size: Adult) Pulse 83 Temp 36.7 C (98 F) (Temporal) Ht 5' 2 (1.575 m) Wt 123 lb (55.8 kg) BMI 22.50 kg/m She stands Height: 5' 2 (157.5 cm) tall with a weight of Weight: 123 lb (55.8 kg) , resulting in a BMI of Body mass index is 22.5 kg/m .. General: The patient is awake, alert, and oriented, and is in no apparent distress. Cardiac: Regular rate and rhythm without evidence of murmur. Respiratory: No respiratory distress. Clear to auscultation bilaterally. Abdomen: Soft, non distended. BS heard in upper abdomen. Mild TTP RUQ. No organomegaly. Extremities: Ambulatory without assistance. No edema Skin: No rashes or lesions noted. Hernia: no hernias found on exam Assessment/Plan Joseph was seen today for new patient. Diagnoses and all orders for this visit: Nausea (Primary) - FL upper GI single contrast w small bowel follow through; Future Generalized abdominal pain - FL upper GI single contrast w small bowel follow through; Future Chronic constipation - [place] upper GI single contrast w small bowel follow through; Future Gastroesophageal reflux disease, unspecified whether esophagitis present - FL upper GI single contrast w small bowel follow through; Future Other orders - promethazine (Phenergan) 25 MG tablet; Take 1 tablet (25 mg) by mouth every 8 hours as needed for nausea or vomiting. 33yo F with daily nausea that is greatly impacting her life. Discussed that I do not believe that she has gastroparesis as she does not have any risk factors for this and her 4 hr gastric emptying study was normal. She has tried PPI and H2 without any improvement in her symptoms. Her HIDA showed EF of 97% and we did discuss hyperkinetic gallbladder but she did not have any worsening of her symptoms during testing. She has chronic constipation that has worsened around the same time as the nausea started. We discussed how constipation can cause symptom of nausea. Because of the possible side effects of Reglan and the fact that her gastric emptying test was normal, I would have her discontinue this medication and we should work on improving her bowel habits. Recommend that she starting taking miralax daily and explained she may experience the cramping and frequent loose stool initially but I am hoping if she continues with it daily, we can avoid the rollercoaster of going days without a bowel movement. I want her to do this for 2 weeks straight and I will call her to see how she is feeling. Would also recommend UGI w/SBFT and colonoscopy and she agrees to proceed with plan. I personally performed the evaluation and management of Joseph Petit in the development of a treatment plan for this patient. I personally interviewed the patient and performed an individual physical examination. In addition, I discussed the patient's condition and treatment options with them. I have also reviewed and agree with the past medical, family and social history unless otherwise noted. All of the patient's questions were answered. I discussed/counseled the patient regarding the risks and benefits of surgery as well as the preoperative and postoperative care plan for this patient.The patient was seen and examined independently and relevant data reviewed by myself. A full chart review was performed. Patient Care Team: Stephanie Freed as PCP - General (Family Medicine) VADIM Fermin CNP as Nurse Practitioner (Nurse Practitioner) documented in this encounter [facility] 01-06-2024 History of Presen t illness Narrative Images from the original note were not included. [facility] GA[facility] [address] [facility] [address] Dept: [phone] Dept Loc: [phone] Visit type: New Patient vs Established Patient Reason for Visit: Nausea (Discuss medication.) Assessment and Plan Problems Addressed Gastroparesis Nausea No follow-ups on file. - GES ordered by Viky Webb 09/23/2023, 7% retention at 4 hours. - Recommend phenergan scheduled at bedtime and continue zofran as needed during the day. - [employer] referral offered, declined at this time. - Diet and lifestyle EDU. - Miralax 17g daily for constipation. - Update in 1 week via MyChart or phone call if interventions are helping or not. Advised patient to call office with new or worsening symptoms, questions, or concerns. Patient verbalized understanding and agreement of plan. Subjective HPI Patient was identified and seen today via Telehealth by agreement and consent. I used the following Telehealth technology: Audio and video capabilities. Patient location: Patient Location: Home. This patient encounter is appropriate and reasonable under the circumstances: provider remote . The patient has been advised of the potential risks and limitations of this mode of treatment (including but not limited to the absence of in-person examination) and has agreed to be treated in a remote fashion in spite of them. Any and all of the patient's/patient's family's questions on this issue have been answered and I have made no promises or guarantees to the patient. The patient has also been advised to contact this office for worsening conditions or problems, and seek emergency medical treatment and/or call 911 if the patient deems either necessary. The patient stated that they are currently in the [facility]. If the patient is a minor, permission has been obtained by the parent or guardian for the patient to receive medical care at this visit. This patient is new to me however has been evaluated by another provider from this practice. Last OV was with Viky Webb on 07/16/2023 . Patient is followed for nausea. At last visit was advised to obtain GES, EGD, CMP, and celiac panel. GES ordered by Viky Webb 09/23/2023, 7% retention at 4 hours.Patient attempted to see Dr. Donohue but he will not see patient's with retention <10%. Patient presents for nausea and to discuss medications. She has been following gastroparesis diet and taking phenergan 1-2 times weekly and zofran daily, some times more frequently. She is experiencing nighttime nausea that is preventing her from sleeping, no vomiting at this time. She also reports constipation that worsens her nausea. Review of Systems Constitutional: Negative for appetite change, chills, fatigue, fever and unexpected weight change. Gastrointestinal: Positive for abdominal distention, constipation and nausea. Negative for abdominal pain, anal bleeding, blood in stool, diarrhea, rectal pain and vomiting. No Known Allergies Outpatient Medications Prior to Visit Medication Sig Dispense Refill promethazine (Phenergan) 12.5 MG tablet Take 1 tablet (12.5 mg) by mouth every 8 hours as needed for nausea or vomiting. 30 tablet 1 famotidine (Pepcid) 20 MG tablet Take 1 tablet (20 mg) by mouth 2 times daily. (Patient not taking: Reported on 01/01/2024) 60 tablet 5 No facility-administered medications prior to visit. There are no problems to display for this patient. Social History Tobacco Use Smoking status: Never Smokeless tobacco: Never Substance Use Topics Alcohol use: Never Family History Problem Relation Name Age of Onset Thyroid disease Mother Hypertension Father Emphysema Father Objective There were no vitals taken for this visit. Physical Exam Constitutional: Appearance: Normal appearance. She is normal weight. Neurological: General: No focal deficit present. Mental Status: She is alert and oriented to person, place, and time. Psychiatric: Mood and Affect: Mood normal. Behavior: Behavior normal. Thought Content: Thought content normal. Data Reviewed and Summarized Labs: Lab Results Component Value Date ALT 16 07/16/2023 AST 15 07/16/2023 CREATININE 0.59 07/16/2023 BUN 8 07/16/2023 CO2 24 07/16/2023 Chemistry Lab Results Component Value Date/Time CO2 24 07/16/2023 1129 BUN 8 07/16/2023 1129 CREATININE 0.59 07/16/2023 1129 Lab Results Component Value Date/Time CALCIUM 9.3 07/16/2023 1129 ALKPHOS 46 07/16/2023 1129 AST 15 07/16/2023 1129 ALT 16 07/16/2023 1129 BILITOT 0.5 07/16/2023 1129 Imaging/Testing: GES: Prior EGD/Colonoscopy: EGD 09/10/[address] Adame for GERD: documented in this encounter [facility] 01-06-2024 Instructions VADIM Campbell CNP - 01/06/2024 10:30 AM EDT - GES ordered by Viky Webb 09/23/2023, 7% retention at 4 hours. - Recommend phenergan scheduled at bedtime and continue zofran as needed during the day. - [employer] referral offered, declined at this time. - Diet and lifestyle EDU. - Miralax 17g daily for constipation. - Update in 1 week via MyChart or phone call if interventions are helping or not. The following attachments cannot be sent through Care Everywhere.Gastroparesis (Delayed Gastric Emptying) (Spanish)Polyethylene Glycol 3350, ADULT (Spanish)documented in this encounter [facility] 01-01-2024 Telephone encounter Note Results noted. Thanks. [facility] [employer] Work Phone: 01-01-2024 Miscellaneous Notes Results noted. Thanks. Images from the original note were not included. Pt returned a call and she stated pt had completed GES at [facility]. Pt state she is feeling nauseas all the time, no vomiting. Medication is not helping and she want to be seen sooner. Scheduled VV with HEIDE Taylor on 01/06/2024 at 10:30 am. Claudia: here is the test results for GES Patient was returning the call and wanted to let the office know that she did have the gastric emptying study completed around October 07. Please be advised. Called pt to notify provider message. Pt didn't answer, lmtcb and cb# provided. Pt can be continue follow with ACCOUNT MANAGER TRAINEE Seamus Webb since, she will be returning on February. As per provider, pt need to complete GES. CS number were provided. Thank you Please see if patient has completed gastric emptying study. If not completed please assist with scheduling KERRI with follow up in office. Thanks. Name of Caller: Joseph Contact Reason for Appointment: R11.2 (ICD-10-CM) - Nausea and vomiting, unspecified vomiting type K31.84 (ICD-10-CM) - Gastroparesis Patient needs seen sooner that March Office Name: Gastro documented in this encounter [facility] 01-01-2024 Telephone encounter Note Images from the original note were not included. Pt returned a call and she stated pt had completed GES at [facility]. Pt state she is feeling nauseas all the time, no vomiting. Medication is not helping and she want to be seen sooner. Scheduled VV with HEIDE Taylor on 01/06/2024 at 10:30 am. Claudia: here is the test results for GES [facility] 01-01-2024 Telephone encounter Note Patient was returning the call and wanted to let the office know that she did have the gastric emptying study completed around October 07. Please be advised. [facility] 12-30-2023 Telephone encounter Note Called pt to notify provider message. Pt didn't answer, lmtcb and cb# provided. Pt can be continue follow with ACCOUNT MANAGER TRAINEE Seamus Webb since, she will be returning on February. As per provider, pt need to complete GES. CS number were provided. Thank you [facility] 12-30-2023 Miscellaneous Notes Called pt to notify provider message. Pt didn't answer, lmtcb and cb# provided. Pt can be continue follow with ACCOUNT MANAGER TRAINEE Seamus Webb since, she will be returning on February. As per provider, pt need to complete GES. CS number were provided. Thank you Please see if patient has completed gastric emptying study. If not completed please assist with scheduling KERRI with follow up in office. Thanks. Name of Caller: Joseph Contact Reason for Appointment: R11.2 (ICD-10-CM) - Nausea and vomiting, unspecified vomiting type K31.84 (ICD-10-CM) - Gastroparesis Patient needs seen sooner that March Office Name: Gastro documented in this encounter [facility] 12-30-2023 Telephone encounter Note Please see if patient has completed gastric emptying study. If not completed please assist with scheduling KERRI with follow up in office. Thanks. [facility] [employer] Work Phone: 12-29-2023 Telephone encounter Note Name of Caller: Joseph Contact Reason for Appointment: R11.2 (ICD-10-CM) - Nausea and vomiting, unspecified vomiting type K31.84 (ICD-10-CM) - Gastroparesis Patient needs seen sooner that March Office Name: Gastro [facility] 12-11-2023 Telephone encounter Note Seamus is on leave. LMTCB re: scheduling an OV with an other provider. [facility] 12-11-2023 Miscellaneous Notes Seamus is on leave. LMTCB re: scheduling an OV with an other provider. Please advise, thank you! Name of caller: Joseph Contact phone number: [phone] Relationship to Patient: patient Provider: Sweta Webb Practice: Gastroenterology Chief Complaint/Reason for Call: Joseph was referred to other provider for Gastroparesis. She was told by that office that they will not see her because she is is only at 7% and he only sees people at 10% or higher. She is not sure what she should do from here. She would also like to know if there are any other options for nausea besides the promethazine (Phenergan). She is having a lot of nausea and pain. Please call Meaghen to advise Best time of day caller can be reached: Any Patient advised that office/PCP has 24-48 business hours to return their call: Yes documented in this encounter [facility] 12-08-2023 Telephone encounter Note Please advise, thank you! [facility] 12-04-2023 Telephone encounter Note Name of caller: Joseph Contact phone number: [phone] Relationship to Patient: patient Provider: Sweta Webb Practice: Gastroenterology Chief Complaint/Reason for Call: Joseph was referred to other provider for Gastroparesis. She was told by that office that they will not see her because she is is only at 7% and he only sees people at 10% or higher. She is not sure what she should do from here. She would also like to know if there are any other options for nausea besides the promethazine (Phenergan). She is having a lot of nausea and pain. Please call Me[place] to advise Best time of day caller can be reached: Any Patient advised that office/PCP has 24-48 business hours to return their call: Yes [facility] 10-16-2023 Note Referral sent. Will scan in once confirmation has been received [facility] 10-16-2023 Telephone encounter Note Referral sent. Will scan in once confirmation has been received [facility] [employer] 10-16-2023 Miscellaneous Notes Referral sent. Will scan in once confirmation has been received Returned call to patient. Discussed positive GES and tx options with patient: trial of metoclopramide vs referral to liability claims representative vs referral to [facility] Gastroparesis clinic. Patient prefers to avoid metoclopramide due to potential SE. She would like to pursue referral to [facility]. Referral placed. Refill of phenergan also requested-rx sent. Recommend low fat, low fiber diet. Patient verbalized understanding, advised to call with additional questions or concerns. GI staff-please fax patient's referral to [facility] Gastroparesis clinic along with GES report, EGD, PN, etc. Thank you! Please advise Name of caller: Joseph Contact phone number: [phone] Relationship to Patient: patient Provider: LILLIAN Webb Practice: Gastro Chief Complaint/Reason for Call: Pt states she needs clarification on the results from her gastric emptying. Pt states she got the results on her mychart but doesn't quite understand them. Please advise. Best time of day caller can be reached: any Patient advised that office/PCP has 24-48 business hours to return their call: N/A documented in this encounter [facility] [employer] 10-16-2023 Telephone encounter Note Thank you [facility] [employer] 10-16-2023 Miscellaneous Notes Thank you Called and spoke with patient-addressed in different TE today. Reviewed GES report received-exam consistent with delayed gastric emptying. Called patient at number listed in chart, no answer. Left VM to contact office regarding results. Office callback number provided. Called patient to let her know that we received the results from the GES and will be scanned into her chart for provider to review. Thank you Name of caller: Toña Contact phone number: [phone] Relationship to Patient: Patient Provider: Sweta Webb Practice: Gastro Chief Complaint/Reason for Call: Please contact patient with results from outside facility on her Gastric Emptying Test - and if results have not been faxed to [facility] please advise patient accordingly. Best time of day caller can be reached: any Patient advised that office/PCP has 24-48 business hours to return their call: No Called and spoke with patient to let her know that we have not received the results for the GES and asked her to reach out to the hospital where she had it done to send us the results. Provided patient with fax number. Thank you I have not received results. Please request results of GES from [facility]. Thank you! Please advise Name of caller: Joseph Contact phone number: [phone] Relationship to Patient: patient Provider: Forester LILLIAN Practice: Gastroenterology Chief Complaint/Reason for Call: Joseph states that Seamus wanted her to call the office once she completed her gastric emptying so that she could make sure the results were received since she had the procedure done outside of [facility]. Joseph states that she had the procedure done at [facility] on 10/07/23. Please be advised. Best time of day caller can be reached: Any Patient advised that office/PCP has 24-48 business hours to return their call: No documented in this encounter [facility] 10-16-2023 Telephone encounter Note Called and spoke with patient-addressed in different TE today. [facility] 10-16-2023 Telephone encounter Note Returned call to patient. Discussed positive GES and tx options with patient: trial of metoclopramide vs referral to liability claims representative vs referral to [facility]ast[facility]. Patient prefers to avoid metoclopramide due to potential SE. She would like to pursue referral to [facility]. Referral placed. Refill of phenergan also requested-rx sent. Recommend low fat, low fiber diet. Patient verbalized understanding, advised to call with additional questions or concerns. GI staff-please fax patient's referral to [facility] along with GES report, EGD, PN, etc. Thank you! [facility] 10-16-2023 Telephone encounter Note Please advise [facility] 10-16-2023 Telephone encounter Note Name of caller: Joseph Contact phone number: [phone] Relationship to Patient: patient Provider: LILLIAN Webb Practice: Gastro Chief Complaint/Reason for Call: Pt states she needs clarification on the results from her gastric emptying. Pt states she got the results on her mychart but doesn't quite understand them. Please advise. Best time of day caller can be reached: any Patient advised that office/PCP has 24-48 business hours to return their call: N/A [facility] 10-15-2023 Telephone encounter Note Reviewed GES report received-exam consistent with delayed gastric emptying. Called patient at number listed in chart, no answer. Left VM to contact office regarding results. Office callback number provided. [facility] 10-14-2023 Telephone encounter Note Called patient to let her know that we received the results from the GES and will be scanned into her chart for provider to review. Thank you [facility] [employer] 10-14-2023 Miscellaneous Notes Called patient to let her know that we received the results from the GES and will be scanned into her chart for provider to review. Thank you Name of caller: Toña Contact phone number: [phone] Relationship to Patient: Patient Provider: Sweta Webb Practice: Gastro Chief Complaint/Reason for Call: Please contact patient with results from outside facility on her Gastric Emptying Test - and if results have not been faxed to [facility] please advise patient accordingly. Best time of day caller can be reached: any Patient advised that office/PCP has 24-48 business hours to return their call: No Called and spoke with patient to let her know that we have not received the results for the GES and asked her to reach out to the hospital where she had it done to send us the results. Provided patient with fax number. Thank you I have not received results. Please request results of GES from [facility]. Thank you! Please advise Name of caller: Joseph Contact phone number: [phone] Relationship to Patient: patient Provider: Forester LILLIAN Practice: Gastroenterology Chief Complaint/Reason for Call: Joseph states that Seamus wanted her to call the office once she completed her gastric emptying so that she could make sure the results were received since she had the procedure done outside of [facility]. Joseph states that she had the procedure done at [facility] on 10/07/23. Please be advised. Best time of day caller can be reached: Any Patient advised that office/PCP has 24-48 business hours to return their call: No documented in this encounter [facility] 10-14-2023 Telephone encounter Note error [facility] 10-14-2023 Miscellaneous Notes error documented in this encounter [facility] 10-14-2023 Telephone encounter Note Name of caller: Toña Contact phone number: [phone] Relationship to Patient: Patient Provider: Sweta Webb Practice: Gastro Chief Complaint/Reason for Call: Please contact patient with results from outside facility on her Gastric Emptying Test - and if results have not been faxed to [facility] please advise patient accordingly. Best time of day caller can be reached: any Patient advised that office/PCP has 24-48 business hours to return their call: No [facility] 10-09-2023 Telephone encounter Note Called and spoke with patient to let her know that we have not received the results for the GES and asked her to reach out to the hospital where she had it done to send us the results. Provided patient with fax number. Thank you [facility] 10-08-2023 Telephone encounter Note I have not received results. Please request results of GES from [facility]. Thank you! [facility] 10-08-2023 Telephone encounter Note Please advise [facility] 10-08-2023 Telephone encounter Note Name of caller: Joseph Contact phone number: [phone] Relationship to Patient: patient Provider: Forester LILLIAN Practice: Gastroenterology Chief Complaint/Reason for Call: Joseph states that Seamus wanted her to call the office once she completed her gastric emptying so that she could make sure the results were received since she had the procedure done outside of [facility]. Joseph states that she had the procedure done at [facility] on 10/07/23. Please be advised. Best time of day caller can be reached: Any Patient advised that office/PCP has 24-48 business hours to return their call: No [facility] 09-23-2023 History of Presen t illness Narrative Images from the original note were not included. [facility] [address] [facility] [address] Dept: [phone] Dept Loc: [phone] Visit type: Established Patient was identified and seen today via Telehealth by agreement and consent. I used the following Telehealth technology: Audio and video capabilities. Patient location: Patient Location: Home. This patient encounter is appropriate and reasonable under the circumstances: patient +COVID 19 infection . The patient has been advised of the potential risks and limitations of this mode of treatment (including but not limited to the absence of in-person examination) and has agreed to be treated in a remote fashion in spite of them. Any and all of the patient's/patient's family's questions on this issue have been answered and I have made no promises or guarantees to the patient. The patient has also been advised to contact this office for worsening conditions or problems, and seek emergency medical treatment and/or call 911 if the patient deems either necessary. The patient stated that they are currently in the [place]. If the patient is a minor, permission has been obtained by the parent or guardian for the patient to receive medical care at this visit. Reason for Visit: Follow-up Assessment and Plan Problem List Items Addressed This Visit None Visit Diagnoses Nausea and vomiting, unspecified vomiting type - Primary Relevant Orders NM gastric emptying solid Gastric erythema Relevant Medications famotidine (Pepcid) 20 MG tablet --?unclear etiology of persistent symptoms; ?element of gastroparesis --09/10/2023 EGD-gastric erythema (bx neg H. Pylori); duodenal bx neg celiac disease --2022 negative HIDA and RUQ US --CMP and celiac serologies WNL --no improvement in sx with PPI --start famotidine 20 mg BID; medication instructions reviewed --schedule 4 hour GES --EDU printed Advised patient to call office with new or worsening symptoms, questions, or concerns. Patient verbalized understanding and agreement of plan. Follow up if symptoms worsen or fail to improve. Subjective Patient presents for EGD follow-up. EGD completed 09/10/2023 which showed gastric erythema (bx neg H. Pylori). Duodenal bx neg celiac disease, celiac serologies also negative. Reports received from PCP's office-normal RUQ US and normal HIDA. Patient reports two nights ago was very bad night-had to take phenergan. Has modest improvement with phenergan. Has some low-grade degree of nausea on a routine basis, intermittently symptoms more severe. No specific triggers for worsening sx. Denies dysphagia, weight-loss, and abdominal pain. Denies hematochezia and melena. Interval History-07/16/2023 Patient is referred by Dr. Freed, re: generalized abdominal pain and nausea. She is accompanied by her . Patient states as long as she can recall has had daily nausea. Feels this is progressively worsening over the past year. Nausea is primarily at night. Uses Nauzene, phenergan, pepto and gas-x prn with mild improvement. Still continues to have occasional emesis despite anti-emetics. Was previously on PPI for GERD, felt medication actually worsened symptoms. She has been off PPI ~ 6 months. Limits dairy due to lactose intolerance-uses lactaid pills if she is going to eat. Cannot identify any other food triggers. Patient reports she had abdominal US and HIDA ordered by PCP. Per patient these exams were normal. Hx EGD ~ 5 years ago for GERD sx. Bowels alternate between diarrhea and constipation. Will skip two to three days, followed by one to two days of loose stool. Will have a couple bowel movements on these days. Denies hematochezia and melena. Denies weight-loss. Paternal grandmother with hx pancreatic cancer. Uses tylenol PM prn. No NSAID use. No family hx IBD or celiac disease. Rare EtOH use. No tobacco use. No marijuana use. Abdominal Pain Associated symptoms include nausea and vomiting. Pertinent negatives include no constipation or diarrhea. Review of Systems Constitutional: Negative for appetite change and unexpected weight change. HENT: Negative for trouble swallowing and voice change. Respiratory: Negative for shortness of breath. Cardiovascular: Negative for chest pain. Gastrointestinal: Positive for nausea and vomiting. Negative for abdominal distention, abdominal pain, anal bleeding, blood in stool, constipation, diarrhea and rectal pain. Genitourinary: Negative for difficulty urinating. Skin: Negative for color change. Neurological: Negative for weakness. No Known Allergies Outpatient Medications Prior to Visit Medication Sig Dispense Refill promethazine (Phenergan) 12.5 MG tablet Take 12.5 mg by mouth every 6 hours as needed. No facility-administered medications prior to visit. There are no problems to display for this patient. Social History Tobacco Use Smoking status: Never Smokeless tobacco: Never Substance Use Topics Alcohol use: Never Family History Problem Relation Name Age of Onset Thyroid disease Mother Hypertension Father Emphysema Father Objective There were no vitals taken for this visit. Physical Exam Constitutional: Appearance: Normal appearance. Comments: Pleasant HENT: Head: Normocephalic. Nose: Congestion present. Pulmonary: Comments: Speaking in complete sentences without difficulty Neurological: Mental Status: She is alert and oriented to person, place, and time. Psychiatric: Mood and Affect: Mood normal. Behavior: Behavior normal. Data Reviewed and Summarized Labs: Lab Results Component Value Date GLUCOSE 87 07/16/2023 CALCIUM 9.3 07/16/2023 CO2 24 07/16/2023 BUN 8 07/16/2023 CREATININE 0.59 07/16/2023 Lab Results Component Value Date ALT 16 07/16/2023 AST 15 07/16/2023 ALKPHOS 46 07/16/2023 BILITOT 0.5 07/16/2023 Component Latest Ref Rng & Units 07/16/2023 TISSUE TRANSGLUTAMINASE AB, IGG U/mL <1.0 TISSUE TRANSGLUTAMINASE AB, IGA U/mL <1.0 GLIADIN (DEAMIDATED) AB (IGA) U/mL 3.3 GLIADIN (DEAMIDATED) AB (IGG) U/mL <1.0 IMMUNOGLOBULIN A 47 - 310 mg/dL 126 Imaging/Testin09/10/[address] Adame Final Diagnosis A. DUODENUM, BIOPSY: - INTESTINAL MUCOSA WITH NO SIGNIFICANT PATHOLOGIC CHANGES Comment: The villous architecture is normal, and there is no significant intraepithelial Iymphocytosis or crypt hyperplasia. B. STOMACH, BIOPSY: - GASTRIC MUCOSA WITH NO SIGNIFICANT PATHOLOGIC CHANGES Comment: H&E stain is negative for H. pylori. No significant active inflammation present. Negative for intestinal metaplasia or malignancy. at 1552 02/24/2023 HIDA 01/22/2023 US abdomen GUNJAN Fermin 11:06 AM 09/23/23 documented in this encounter [facility] 09-23-2023 Instructions Corie Rasheed MA - 09/23/2023 9:40 AM EST --Please call office with any questions or concerns! [phone] --Begin medication (famotidine 20 mg two times per day). --Avoid nonsteroidal anti-inflammatory (NSAID) medications such as ibuprofen (Advil), naproxen (Aleve), etc. These can contribute to abdominal pain and ulcers. Take Tylenol (acetaminophen) instead if needed for pain by following the instructions on the bottle. --Schedule radiology test (4 hour gastric emptying study) for further evaluation of the symptoms. --Please see handout provided regarding additional recommendations for the symptoms including when to seek emergency care or further treatment. --Follow-up with PCP, and in GI clinic as needed pending results of above. GES FAXED TO [facility] The following attachments cannot be sent through Care Everywhere.Nausea and Vomiting, Adult (Spanish)Ulcer and Gastritis Diet (Spanish)Gastroparesis (Delayed Gastric Emptying) (Spanish)documented in this encounter [facility] 09-10-2023 Note Formatting of this n ote might be different from the original. Patient able to dress self. Assisted into wheelchair and out to car. No complaints voiced. [facility] 09-10-2023 Note Formatting of this n ote might be different from the original. Patient able to dress self. Assisted into wheelchair and out to car. No complaints voiced. [facility] 09-10-2023 Miscellaneous Notes Patient able to dress self. Assisted into wheelchair and out to car. No complaints voiced. Dr. Adame to bedside with post op results. Discharge instructions reviewed with patient and . All questions answered. Received patient from OR to PACU with DOG RACES MANAGER. Patient is sedated on room air. Patient attempting to open eyes to voice. Patient remains very drowsy. No respiratory distress noted. Monitor on, Family to bedside. Rn [facility] Joseph [facility] Procedure Date: 09/10/2023 7:22 AM Gender: Female Date of : 1990 Age: 32 Admit Type: Outpatient Note Status: Finalized Endoscopist: Coy Adame MD, [id number] Procedure: Upper GI endoscopy Indications: GERD Findings: Esophagus was normal. Mild erythema noted in the gastric antrum, biopsies obtained D1 and D2 were normal, biopsies obtained Impression: Gastric erythema Recommendation: - Patient has a contact number available for emergencies. The signs and symptoms of potential delayed complications were discussed with the patient. Return to normal activities tomorrow. Written discharge instructions were provided to the patient. - Continue present medications. - Resume previous diet. - Return to referring physician as previously scheduled. Referring MD: Stephanie Freed Medicines: Monitored Anesthesia Care Procedure: Pre-Anesthesia Assessment: - Prior to the procedure, a History and Physical was performed, and patient medications and allergies were reviewed. The patient is competent. The risks and benefits of the procedure and the sedation options and risks were discussed with the patient. All questions were answered and informed consent was obtained. Patient identification and proposed procedure were verified by the physician, the nurse and the farm tractor mechanic in the pre-procedure area in the procedure room in the endoscopy suite. Mental Status Examination: normal. Airway Examination: normal oropharyngeal airway and neck mobility. Respiratory Examination: clear to auscultation. CV Examination: normal. Prophylactic Antibiotics: The patient does not require prophylactic antibiotics. Prior Anticoagulants: The patient has taken no anticoagulant or antiplatelet agents. ASA Grade Assessment: III - A patient with severe systemic disease. After reviewing the risks and benefits, the patient was deemed in satisfactory condition to undergo the procedure. The anesthesia plan was to use monitored anesthesia care (MAC). Immediately prior to administration of medications, the patient was re-assessed for adequacy to receive sedatives. The heart rate, respiratory rate, oxygen saturations, blood pressure, adequacy of pulmonary ventilation, and response to care were monitored throughout the procedure. The physical status of the patient was re-assessed after the procedure. After obtaining informed consent, the endoscope was passed under direct vision. Throughout the procedure, the patient's blood pressure, pulse, and oxygen saturations were monitored continuously. The Endoscope was introduced through the mouth, and advanced to the second part of duodenum. The upper GI endoscopy was accomplished with ease. The patient tolerated the procedure well. Complications: No immediate complications. Estimated blood loss: None. Attending Participation: I personally performed the entire procedure. Coy Adame MD 09/10/2023 10:59:30 AM This report has been signed electronically. Number of Addenda: 0 Note Initiated On: 09/10/2023 7:22 AM documented in this encounter [facility] 09-10-2023 Note Formatting of this n ote might be different from the original. Dr. Adame to bedside with post op results. Discharge instructions reviewed with patient and . All questions answered. [facility] 09-10-2023 Note Formatting of this n ote might be different from the original. Dr. Adame to bedside with post op results. Discharge instructions reviewed with patient and . All questions answered. [facility] 09-10-2023 Note Formatting of this n ote might be different from the original. Received patient from OR to PACU with DOG RACES MANAGER. Patient is sedated on room air. Patient attempting to open eyes to voice. Patient remains very drowsy. No respiratory distress noted. Monitor on, Family to bedside. Rn remains bedside. [facility] 09-10-2023 Note Formatting of this n ote might be different from the original. Received patient from OR to PACU with DOG RACES MANAGER. Patient is sedated on room air. Patient attempting to open eyes to voice. Patient remains very drowsy. No respiratory distress noted. Monitor on, Family to bedside. Rn remains bedside. [facility] 09-10-2023 History and physical note GASTROENTEROLOGY PHYSICIAN PRE PROCEDURE NOTE HPI: Joseph Petit is a 32 y.o. female who is here today for planned endoscopic examination. All: No Known Allergies Meds: No current facility-administered medications on file prior to encounter. Current Outpatient Medications on File Prior to Encounter Medication Sig Dispense Refill promethazine (Phenergan) 12.5 MG tablet Take 12.5 mg by mouth every 6 hours as needed. PMH: Past Medical History: Diagnosis Date Endometriosis No reactions to anesthesia in the past. Airway patent PE: VS: BP 117/81 (BP Location: Left arm, Patient Position: Sitting) Pulse 99 Temp 37.3 C (99.2 F) (Temporal) Resp 16 Ht 5' 2 (1.575 m) Wt 132 lb (59.9 kg) SpO2 99% BMI 24.14 kg/m Body mass index is 24.14 kg/m . General: Patient in no distress CVS: Regular rate & rhythm Respiratory: Clear to auscultation Abdomen: soft and non tender ASA score : 3 ASSESSMENT & PLAN: Risks & benefits of the endoscopic procedure(s) and MAC /GA sedation were personally explained to patient / family along with alternatives to the procedure in detail including radiological and surgical options. The risks of the endoscopic procedure include but are not limited to risk from anesthesia, respiratory failure, infection, bleeding, perforation, pancreatitis with its sequelae , damage to the adjacent organs, missed lesions and need for further procedure, surgery or interventional radiological intervention, from procedure or complications. We made a shared decision to proceed with planned procedure [x]EGD []Colonoscopy []EGD&Colonoscopy Coy Adame MD Gastroenterology Dtime Phone: 09-10-2023 History and physical note GASTROENTEROLOGY PHYSICIAN PRE PROCEDURE NOTE HPI: Joseph Petit is a 32 y.o. female who is here today for planned endoscopic examination. All: No Known Allergies Meds: No current facility-administered medications on file prior to encounter. Current Outpatient Medications on File Prior to Encounter Medication Sig Dispense Refill promethazine (Phenergan) 12.5 MG tablet Take 12.5 mg by mouth every 6 hours as needed. PMH: Past Medical History: Diagnosis Date Endometriosis No reactions to anesthesia in the past. Airway patent PE: VS: BP 117/81 (BP Location: Left arm, Patient Position: Sitting) Pulse 99 Temp 37.3 C (99.2 F) (Temporal) Resp 16 Ht 5' 2 (1.575 m) Wt 132 lb (59.9 kg) SpO2 99% BMI 24.14 kg/m Body mass index is 24.14 kg/m . General: Patient in no distress CVS: Regular rate & rhythm Respiratory: Clear to auscultation Abdomen: soft and non tender ASA score : 3 ASSESSMENT & PLAN: Risks & benefits of the endoscopic procedure(s) and MAC /GA sedation were personally explained to patient / family along with alternatives to the procedure in detail including radiological and surgical options. The risks of the endoscopic procedure include but are not limited to risk from anesthesia, respiratory failure, infection, bleeding, perforation, pancreatitis with its sequelae , damage to the adjacent organs, missed lesions and need for further procedure, surgery or interventional radiological intervention, from procedure or complications. We made a shared decision to proceed with planned procedure [x]EGD []Colonoscopy []EGD&Colonoscopy Coy Adame MD Gastroenterology documented in this encounter [facility] 09-10-2023 Note Formatting of this n ote might be different from the original. [facility]: Joseph Petit Procedure Date: 09/10/2023 7:22 AM Gender: Female Date of : 1990 Age: 32 Admit Type: Outpatient Note Status: Finalized Endoscopist: Coy Adame MD, [id number] Procedure: Upper GI endoscopy Indications: GERD Findings: Esophagus was normal. Mild erythema noted in the gastric antrum, biopsies obtained D1 and D2 were normal, biopsies obtained Impression: Gastric erythema Recommendation: - Patient has a contact number available for emergencies. The signs and symptoms of potential delayed complications were discussed with the patient. Return to normal activities tomorrow. Written discharge instructions were provided to the patient. - Continue present medications. - Resume previous diet. - Return to referring physician as previously scheduled. Referring MD: Stephanie Freed Medicines: Monitored Anesthesia Care Procedure: Pre-Anesthesia Assessment: - Prior to the procedure, a History and Physical was performed, and patient medications and allergies were reviewed. The patient is competent. The risks and benefits of the procedure and the sedation options and risks were discussed with the patient. All questions were answered and informed consent was obtained. Patient identification and proposed procedure were verified by the physician, the nurse and the farm tractor mechanic in the pre-procedure area in the procedure room in the endoscopy suite. Mental Status Examination: normal. Airway Examination: normal oropharyngeal airway and neck mobility. Respiratory Examination: clear to auscultation. CV Examination: normal. Prophylactic Antibiotics: The patient does not require prophylactic antibiotics. Prior Anticoagulants: The patient has taken no anticoagulant or antiplatelet agents. ASA Grade Assessment: III - A patient with severe systemic disease. After reviewing the risks and benefits, the patient was deemed in satisfactory condition to undergo the procedure. The anesthesia plan was to use monitored anesthesia care (MAC). Immediately prior to administration of medications, the patient was re-assessed for adequacy to receive sedatives. The heart rate, respiratory rate, oxygen saturations, blood pressure, adequacy of pulmonary ventilation, and response to care were monitored throughout the procedure. The physical status of the patient was re-assessed after the procedure. After obtaining informed consent, the endoscope was passed under direct vision. Throughout the procedure, the patient's blood pressure, pulse, and oxygen saturations were monitored continuously. The Endoscope was introduced through the mouth, and advanced to the second part of duodenum. The upper GI endoscopy was accomplished with ease. The patient tolerated the procedure well. Complications: No immediate complications. Estimated blood loss: None. Attending Participation: I personally performed the entire procedure. Coy Adame MD 09/10/2023 10:59:30 AM This report has been signed electronically. Number of Addenda: 0 Note Initiated On: 09/10/2023 7:22 AM [facility] 09-10-2023 Note Formatting of this n ote might be different from the original. [facility]: Joseph Petit Procedure Date: 09/10/2023 7:22 AM Gender: Female Date of : 1990 Age: 32 Admit Type: Outpatient Note Status: Finalized Endoscopist: Coy Adame MD, [id number] Procedure: Upper GI endoscopy Indications: GERD Findings: Esophagus was normal. Mild erythema noted in the gastric antrum, biopsies obtained D1 and D2 were normal, biopsies obtained Impression: Gastric erythema Recommendation: - Patient has a contact number available for emergencies. The signs and symptoms of potential delayed complications were discussed with the patient. Return to normal activities tomorrow. Written discharge instructions were provided to the patient. - Continue present medications. - Resume previous diet. - Return to referring physician as previously scheduled. Referring MD: Stephanie Freed Medicines: Monitored Anesthesia Care Procedure: Pre-Anesthesia Assessment: - Prior to the procedure, a History and Physical was performed, and patient medications and allergies were reviewed. The patient is competent. The risks and benefits of the procedure and the sedation options and risks were discussed with the patient. All questions were answered and informed consent was obtained. Patient identification and proposed procedure were verified by the physician, the nurse and the farm tractor mechanic in the pre-procedure area in the procedure room in the endoscopy suite. Mental Status Examination: normal. Airway Examination: normal oropharyngeal airway and neck mobility. Respiratory Examination: clear to auscultation. CV Examination: normal. Prophylactic Antibiotics: The patient does not require prophylactic antibiotics. Prior Anticoagulants: The patient has taken no anticoagulant or antiplatelet agents. ASA Grade Assessment: III - A patient with severe systemic disease. After reviewing the risks and benefits, the patient was deemed in satisfactory condition to undergo the procedure. The anesthesia plan was to use monitored anesthesia care (MAC). Immediately prior to administration of medications, the patient was re-assessed for adequacy to receive sedatives. The heart rate, respiratory rate, oxygen saturations, blood pressure, adequacy of pulmonary ventilation, and response to care were monitored throughout the procedure. The physical status of the patient was re-assessed after the procedure. After obtaining informed consent, the endoscope was passed under direct vision. Throughout the procedure, the patient's blood pressure, pulse, and oxygen saturations were monitored continuously. The Endoscope was introduced through the mouth, and advanced to the second part of duodenum. The upper GI endoscopy was accomplished with ease. The patient tolerated the procedure well. Complications: No immediate complications. Estimated blood loss: None. Attending Participation: I personally performed the entire procedure. Coy Adame MD 09/10/2023 10:59:30 AM This report has been signed electronically. Number of Addenda: 0 Note Initiated On: 09/10/2023 7:22 AM [facility] 07-16-2023 History of Presen t illness Narrative Images from the original note were not included. [facility] GASTROENTEROLOGY [address] [facility] [address] Dept: [phone] Dept Loc: [phone] Visit type: New Reason for Visit: Abdominal Pain Assessment and Plan Problem List Items Addressed This Visit None Visit Diagnoses Nausea and vomiting, unspecified vomiting type - Primary Relevant Orders Celiac Panel Comprehensive metabolic panel Gastroesophageal reflux disease, unspecified whether esophagitis present --?GERD vs H. Pylori infection vs gastroparesis vs celiac disease, less likely GB etiology given (reported) normal US abdomen and HIDA --request HIDA and abdominal US report from PCP --schedule EGD for further evaluation --complete CMP and celiac panel --discussed with patient, if above negative, and sx persist, consider GES --EDU printed Advised patient to call office with new or worsening symptoms, questions, or concerns. Patient verbalized understanding and agreement of plan. Follow up in about 3 months (around 10/16/2023). Subjective Patient is referred by Dr. Freed, re: generalized abdominal pain and nausea. She is accompanied by her . Patient states as long as she can recall has had daily nausea. Feels this is progressively worsening over the past year. Nausea is primarily at night. Uses Nauzene, phenergan, pepto and gas-x prn with mild improvement. Still continues to have occasional emesis despite anti-emetics. Was previously on PPI for GERD, felt medication actually worsened symptoms. She has been off PPI ~ 6 months. Limits dairy due to lactose intolerance-uses lactaid pills if she is going to eat. Cannot identify any other food triggers. Patient reports she had abdominal US and HIDA ordered by PCP. Per patient these exams were normal. Hx EGD ~ 5 years ago for GERD sx. Bowels alternate between diarrhea and constipation. Will skip two to three days, followed by one to two days of loose stool. Will have a couple bowel movements on these days. Denies hematochezia and melena. Denies weight-loss. Paternal grandmother with hx pancreatic cancer. Uses tylenol PM prn. No NSAID use. No family hx IBD or celiac disease. Rare EtOH use. No tobacco use. No marijuana use. Abdominal Pain Associated symptoms include nausea and vomiting. Pertinent negatives include no constipation or diarrhea. Review of Systems Constitutional: Negative for appetite change and unexpected weight change. HENT: Negative for trouble swallowing and voice change. Respiratory: Negative for shortness of breath. Cardiovascular: Negative for chest pain. Gastrointestinal: Positive for nausea and vomiting. Negative for abdominal distention, abdominal pain, anal bleeding, blood in stool, constipation, diarrhea and rectal pain. Genitourinary: Negative for difficulty urinating. Skin: Negative for color change. Neurological: Negative for weakness. No Known Allergies Outpatient Medications Prior to Visit Medication Sig Dispense Refill promethazine (Phenergan) 12.5 MG tablet Take 12.5 mg by mouth every 6 hours as needed. No facility-administered medications prior to visit. There are no problems to display for this patient. Social History Tobacco Use Smoking status: Never Smokeless tobacco: Never Substance Use Topics Alcohol use: Never Family History Problem Relation Name Age of Onset Thyroid disease Mother Hypertension Father Emphysema Father Objective BP 119/76 Pulse 97 Temp 36.7 C (98.1 F) Wt 132 lb 9.6 oz (60.1 kg) Physical Exam Constitutional: Appearance: Normal appearance. Comments: Pleasant HENT: Head: Normocephalic. Eyes: General: No scleral icterus. Cardiovascular: Rate and Rhythm: Normal rate and regular rhythm. Pulmonary: Effort: Pulmonary effort is normal. Breath sounds: Normal breath sounds. Abdominal: General: Bowel sounds are normal. There is no distension. Palpations: Abdomen is soft. There is no mass. Tenderness: There is no abdominal tenderness. There is no guarding or rebound. Hernia: No hernia is present. Skin: General: Skin is warm and dry. Coloration: Skin is not jaundiced. Neurological: General: No focal deficit present. Mental Status: She is alert and oriented to person, place, and time. Psychiatric: Mood and Affect: Mood normal. Behavior: Behavior normal. Data Reviewed and Summarized Labs: Imaging/Testing: GUNJAN Fermin 12:44 PM 07/16/23 Called [facility] to get fax number. Left message for someone to call back and give that fax number. Thank you documented in this encounter [facility] 07-16-2023 Instructions Marycruz Barbosa MA - 07/16/2023 10:40 AM EDT --Please call office with any questions or concerns! [phone] --request copy of abdominal US and HIDA from PCP --Schedule EGD (upper endoscopy) for further evaluation of the symptoms. Patient is scheduled in [place] on 09/10/[address] Adame --Obtain additional blood work for further evaluation of the symptoms. --Avoid nonsteroidal anti-inflammatory (NSAID) medications such as ibuprofen (Advil), naproxen (Aleve), etc. These can contribute to abdominal pain and ulcers. Take Tylenol (acetaminophen) instead if needed for pain by following the instructions on the bottle. --Please see handout provided regarding additional recommendations for the symptoms including when to seek emergency care or further treatment. --Follow-up with PCP, and in GI clinic in about 3 months following the above evaluation and recommendations. The following attachments cannot be sent through Care Everywhere.Upper GI Endoscopy (Spanish)Nausea and Vomiting, Adult (Spanish)documented in this encounter [facility] Evaluation note No assessment inform ation available [facility] Work Phone: Evaluation note Diagnosis Nausea and vomiting, unspecified vomiting type- Primary Gastroesophageal reflux disease, unspecified whether esophagitis present [facility] Diagnosis GERD (gastroesophageal reflux disease) Esophageal reflux Nausea with vomiting, unspecified [facility] Diagnosis Nausea and vomiting, unspecified vomiting type- Primary Gastric erythema [facility] Diagnosis Nausea and vomiting, unspecified vomiting type- Primary Gastroparalysis Gastroparesis Gastroparesis [facility] Diagnosis Gastroparesis- Primary Nausea and vomiting, unspecified vomiting type Constipation, unspecified constipation type [facility] Diagnosis Nausea- Primary Nausea alone Generalized abdominal pain Abdominal pain, generalized Chronic constipation Unspecified constipation Gastroesophageal reflux disease, unspecified whether esophagitis present [facility] Additional Instructions Today all of your testing looked normal. We also checked your thyroid and blood work that ruled out heart attacks and blood clots. I am not sure what caused your episode of heart racing today. Please follow-up with your primary care doctor or return to the ER for new or worsening symptoms.[facility] Work Phone: Hospital Discharge instructions* Attachments The following attachments cannot be sent through Care Everywhere. * Moderate Sedation in Adults Discharge Instructions (Spanish) * Upper GI Endoscopy [facility]charge Inst[facility] (Spanish[facility] Attachments The following attachments cannot be sent through Care Everywhere. * Colonoscopy Discharge Instructions (Spanish[facility] Consultation (Routine) - Pending Review Specialty Diagnoses / Procedures Referred By Becky t Referred To Contact Gastroenterology Diagnoses Nausea and vomiting, unspecified vomiting type Gastroparesis Procedures RI OFFICE/OUTPATIENT [facility] 60 MINUTES Seamus Webb APRN - CNP [address] [place] [id number] Leydi Donohue DO [address] [id number] Referral ID Status Reason Start Date Expiration Date Visits Requested Visits Authorized [id number] Pending Review Specialty Services Required 10/16/2023 10/15/2024 1 1 [facility] Chief Complaint and Reason for Visit Chief Complaint RUQ ABD PAIN PALPITATIONS Advance Directives No Advanced Directives Records Found Advance Directive Response Recorded Date/ Time Living Will No January 27, 2023 7:07pm Power of Distribution Center Supervisor No January 27 7:07pm Latest Code Status on File Code Status Date Activated Date Inactivated Comments Full Code 09/10/2023 10:09 AM 09/10/2023 6:37 PM Latest Code Status on File Code Status Date Activated Date Inactivated Comments Full Code 09/10/2023 10:09 AM 09/10/2023 6:37 PM Date Activated Date Inactivated Comments 09/10/2023 10:09 AM 09/10/2023 6:37 PM Date Activated Date Inactivated Comments 07/12/2024 12:09 PM 07/12/2024 3:28 PM Date Activated Date Inactivated Comments 09/10/2023 10:09 AM 09/10/2023 6:37 PM Date Activated Date Inactivated Comments 07/12/2024 12:09 PM 07/12/2024 3:28 PM Date Activated Date Inactivated Comments 09/10/2023 10:09 AM 09/10/2023 6:37 PM Reason for Referral Specialty Diagnoses / Procedures Referred By Becky t Referred To Contact Radiology Diagnoses Nausea and vomiting, unspecified vomiting type Procedures NM gastric emptying solid Seamus Webb APRN - INFORMATION SYSTEMS ARCHITECT [address] [address] Referral ID Status Reason Start Date Expiration Date V isits Requested Visits Authorized [id number] Pending Review 09/23/2023 09/22/2024 3 3 Summary Purpose Family History No Family History Records FoundNo Family History Records FoundNo Family History Records Found Additional Source Comments Care Teams (unrecognized sec tion and content) Team Status: Active Member Role Status Dates Dr. Stephanie Freed MD Primary Care Provider Active Team Status: Active Member Role Status Dates Dr. Stephanie Freed MD Primary Care Prov ider, Attending Provider, Referring Provider Active Team Status: Inactive Member Role Status Dates Dr. Stephanie Freed MD Primary Care Provider Active Dr. Nii Ogden MD Emergency Provider Active Squaring Shear Operator Relationship Specialty Start Date End Date Stephanie Freed [address] [facility] [address] [place] [phone] PCP - General Family Medicine 05/15/23 Squaring Shear Operator Relationship Specialty Start Date End Date Stephanie Freed [address] [facility] [address] [place] [phone] PCP - General Family Medicine 05/15/23 Squaring Shear Operator Relationship Specialty Start Date End Date Stephanie Freed [address] [facility] [address] [place] [phone] PCP - General Family Medicine 05/15/23 Squaring Shear Operator Relationship Specialty Start Date End Date Stephanie Freed [address] [place] [address] PCP - General Family Medicine 05/15/23 Squaring Shear Operator Relationship Specialty Start Date End Date Stephanie Freed [address] [place] [address] PCP - General Family Medicine 05/15/23 Squaring Shear Operator Relationship Specialty Start Date End Date Stephanie Freed [address] [place] [address] PCP - General Family Medicine 05/15/23 Squaring Shear Operator Relationship Specialty Start Date End Date Stephanie Freed [address] [place] [address] PCP - General Family Medicine 05/15/23 Squaring Shear Operator Relationship Specialty Start Date End Date Stephanie Freed [address] [place] [address] PCP - General Family Medicine 05/15/23 Squaring Shear Operator Relationship Specialty Start Date End Date Stephanie Freed [address] [place] [address] PCP - General Family Medicine 05/15/23 Squaring Shear Operator Relationship Specialty Start Date End Date Stephanie Freed [address] [place] [address] PCP - General Family Medicine 05/15/23 Squaring Shear Operator Relationship Specialty Start Date End Date Stephanie Freed [address] [place] [address] PCP - General Family Medicine 05/15/23 Squaring Shear Operator Relationship Specialty Start Date End Date Stephanie Freed [address] [place] [address] PCP - General Family Medicine 05/15/23 Seamus Webb, LICENSED MASSAGE THERAPIST - INFORMATION SYSTEMS ARCHITECT [address] [place] [address] Nurse Practitioner Nurse Practitioner 06/17/24 Squaring Shear Operator Relationship Specialty Start Date End Date Stephanie Freed [address] [place] [address] PCP - General Family Medicine 05/15/23 Seamus Webb, LICENSED MASSAGE THERAPIST - INFORMATION SYSTEMS ARCHITECT [address] [place] [address] Nurse Practitioner Nurse Practitioner 06/17/24 Squaring Shear Operator Relationship Specialty Start Date End Date Stephanie Freed [address] [place] [address] PCP - General Family Medicine 05/15/23 Seamus Webb, LICENSED MASSAGE THERAPIST - INFORMATION SYSTEMS ARCHITECT [address] [place] [address] Nurse Practitioner Nurse Practitioner 06/17/24 Squaring Shear Operator Relationship Specialty Start Date End Date Stephanie Freed [address] [place] [address] PCP - General Family Medicine 05/15/23 Seamus Webb, LICENSED MASSAGE THERAPIST - INFORMATION SYSTEMS ARCHITECT [address] [place] [address] Nurse Practitioner Nurse Practitioner 06/17/24 Squaring Shear Operator Relationship Specialty Start Date End Date Stephanie Freed [address] [place] [phone] PCP - General Family Medicine 05/15/23 Seamus Webb, LICENSED MASSAGE THERAPIST - [facility] [address] [place] [address] Nurse Practitioner Nurse Practitioner 06/17/24 Squaring Shear Operator Relationship Specialty Start Date End Date Stephanie Freed [address] [place] [address] PCP - General Family Medicine 05/15/23 JagdishSeamus, LICENSED MASSAGE THERAPIST - [facility] [address] [place], [place] [id number] Nurse Practitioner Nurse Practitioner 06/17/24 Goals (unrecognized section and content) Goals may be documented in a n alternate section Reason for Visit (unrecogniz ed section and content) Reason Comments Abdominal Pain Specialty Diagnoses / Procedures Referred By Contac t Referred To Contact Gastroenterology Diagnoses Generalized abdominal pain Nausea Bloating Food intolerance (Starts about 2 hours after meals) Procedures GASTROINTESTINAL (GI) SERVICES-GENERAL Stephanie Freed [address] [place] [address] [facility] [address] [place] [address] Referral ID Status Reason Start Date Expiration Date V isits Requested Visits Authorized [id number] Pending Review 05/14/2023 05/14/2024 1 1 Specialty Diagnoses / Procedures Referred By Contac t Referred To Contact Diagnoses GERD (gastroesophageal reflux disease) Nausea with vomiting, unspecified GERD (gastroesophageal reflux disease) [K21.9] Nausea with vomiting, unspecified [R11.2] Procedures RI ESOPHAGOGASTRODUODENOSCOPY TRANSORAL DIAGNOSTIC EGD DIAGNOSTIC Coy Adame MD [address] [place] [address] [facility] Endoscopy [address] [place] [address] Referral ID Status Reason Start Date Expiration Date Visits Re quested Visits Authorized [id number] 1 1 Reason Comments Follow-up Reason Onset Date Comments Error (VOID this visit) 10/14/2023 Reason Onset Date Comments Advice Only 10/08/2023 FYI Results 10/08/2023 Gastric Emptying Reason Onset Date Comments Referral 12/04/2023 Gastroparesis Reason Onset Date Comments Appointment Request 12/29/2023 Reason Onset Date Comments Advice Only 10/16/2023 Reason Comments Nausea Discuss medication. 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 -gastropares is -gastric emptying and EGD completed by GI - Seamus Webb ref pt could not do any earlier, lives an hour away Specialty Diagnoses / Procedures Referred By Becky mina Referred To Contact General Surgery Diagnoses Gastroparesis Nausea and vomiting, unspecified vomiting type Procedures RI OFFICE/OUTPATIENT NEW HIGH MDM 60 MINUTES Seamus Webb, VADIM - INFORMATION SYSTEMS ARCHITECT [address] [facility] [address] [place] [address] George Gamble MD [address] [facility] [address] [place] [address] Referral ID Status Reason Start Date Expiration Date Visits Requested Visits Authorized [id number] Pending Review Specialty Services Required 06/10/2024 06/10/2025 1 1 Specialty Diagnoses / Procedures Referred By Becky mina Referred To Contact Diagnoses Gastro-esophageal reflux disease without esophagitis Procedures RI COLONOSCOPY W/BIOPSY SINGLE/MULTIPLE COLONOSCOPY WITH BIOPSY Lake Newman MD [address] [facility] [address] [place] [address] [facility]oscopy [address] [place] [address] Referral ID Status Reason Start Date Expiration Date Visits Re quested Visits Authorized [id number] 1 1 Reason Onset Date Comments Med Refill 08/24/2024 Reason Onset Date Comments Care Coordination 07/02/2024 Addendum for Shaun villatoro empty study Reason Onset Date Comments Med Refill 10/01/2024 Scheduled Active and Recently Administ ered Medications (unrecognized section and content) Medication Order 09/08/2023 09/09/2023 09/10/2023 sodium chloride 0.9% (NS) flush 10 mL 10 mL, IntraVENous, Every 12 hours scheduled (2 times per day), First dose on Fri09/10/23 at 1015 1015 (Canceled Entry - Provider: Automatic Discharge Provider - Comment: Automatically canceled at discontinue of medication order) sodium chloride 0.9% (NS) flush 10 mL 10 mL, IntraVENous, Every 12 hours scheduled (2 times per day), First dose on Fri09/10/23 at 1015, Preprocedure 1015 (Canceled Entry - Provider: Automatic Discharge Provider - Comment: Automatically canceled at discontinue of medication order) Continuous Medication Order 09/08/2023 09/09/2023 09/10/2023 lactated Ringer's (LR) infusion 50 mL/hr, IntraVENous, Continuous, Starting on Fri09/10/23 at 1000, Preprocedure, Upon admission to sameday - please start iv if patient does not have iv access. Use 500ml NS for patients on dialysis. 1011 (New Bag - Prov ider: Mariza Domingo RN) PRN Medication Order 09/08/2023 09/09/2023 09/10/2023 sodium chloride 0.9 % infusion 5-250 mL/hr, IntraVENous, PRN, if patient receiving piggyback infusions and maintenance fluids are not ordered OR KVO fluids to protect IV site / prevent frequent line interruptions/ long duration, Starting on Fri09/10/23 at 1008, For piggyback infusion, administer at same rate as piggyback for a total of 25 mL. Enter 25 mL into dose field and piggyback rate into rate field of order. If piggyback is infusing at a rate less than 100 mL/hr, enter 25 mL into dose field and 100 mL/hr into rate field of order. For KVO fluids, enter rate of 20 mL/hr or less into rate field of order. sodium chloride 0.9 % infusion 5-250 mL/hr, IntraVENous, PRN, if patient receiving piggyback infusions and maintenance fluids are not ordered OR KVO fluids to protect IV site / prevent frequent line interruptions/ long duration, Starting on Fri09/10/23 at 1008, Preprocedure, For piggyback infusion, administer at same rate as piggyback for a total of 25 mL. Enter 25 mL into dose field and piggyback rate into rate field of order. If piggyback is infusing at a rate less than 100 mL/hr, enter 25 mL into dose field and 100 mL/hr into rate field of order. For KVO fluids, enter rate of 20 mL/hr or less into rate field of order. sodium chloride 0.9% (NS) flush 10 mL 10 mL, IntraVENous, PRN, line care, Starting on Fri09/10/23 at 1008, After every IV line use sodium chloride 0.9% (NS) flush 10 mL 10 mL, IntraVENous, PRN, line care, Starting on Fri09/10/23 at 1008, Preprocedure, After every IV line use Scheduled Medication Order 07/10/2024 07/11/2024 07/12/2024 sodium chloride 0.9% (NS) flush 10 mL 10 mL, IntraVENous, Every 12 hours scheduled (2 times per day), First dose on Fri07/12/24 at 2100, Preprocedure PRN Medication Order 07/10/2024 07/11/2024 07/12/2024 ondansetron (Zofran) injection 4 mg 4 mg, IntraVENous, Once PRN, nausea, vomiting, Starting on Fri07/12/24 at 1209, For 1 dose, Preprocedure sodium chloride 0.9 % infusion 5-250 mL/hr, IntraVENous, PRN, if patient receiving piggyback infusions and maintenance fluids are not ordered OR KVO fluids to protect IV site / prevent frequent line interruptions/ long duration, Starting on Fri07/12/24 at 1209, Preprocedure, For piggyback infusion, administer at same rate as piggyback for a total of 25 mL. Enter 25 mL into dose field and piggyback rate into rate field of order. If piggyback is infusing at a rate less than 100 mL/hr, enter 25 mL into dose field and 100 mL/hr into rate field of order. For KVO fluids, enter rate of 20 mL/hr or less into rate field of order. 1213 (New Bag - Prov ider: Diana Lara RN)1221 (Paused - Provider: VADIM Mckeon CRNA - Comment: Switch to gravity)1222 (Restarted - Provider: VADIM Mckeon CRNA)1242 (Stopped - Provider: VADIM Mckeon CRNA) sodium chloride 0.9% (NS) flush 10 mL 10 mL, IntraVENous, PRN, line care, Starting on Fri07/12/24 at 1209, Preprocedure, After every IV line use INFORMATION SOURCE (unrecogn ized section and content) DATE CREATED AUTHOR 11/08/2023 [facility] DATE CREATED AUTHOR AUTHOR'S ORGANIZ ATION 08/17/2024 [facility] DATE CREATED AUTHOR AUTHOR'S ORGANIZ ATION 10/06/2024 [facility] FOR RECORDS PERTAINING TO PATIENTS WHO ARE OR HAVE BEEN ENROLLED IN A CHEMICAL DEPENDENCY/SUBSTANCEABUSE PROGRAM, SOME INFORMATION MAY BE OMITTED. This clinical summary was aggregated from multiple sources. Caution should be exercised in using it in the provision of clinical care. This summary normalizes information from multiple sources, and as a consequence, information in this document may materially change the coding, format and clinical context of patient data. In addition, data may be omitted in some cases. CLINICAL DECISIONS SHOULD BE BASED ON THE PRIMARY CLINICAL RECORDS. [employer] [facility]. provides no warranty or guarantee of the accuracy or completeness of information in this document.
[2025-05-27 06:00] LABS: Hematocrit 40.7 % (37-47); Hemoglobin 13.8 g/dL (12.0-15.0); Immature Granulocytes Count 0.030 X10^3/uL (0.0-0.0); Mean Corp Hgb Conc 33.9 g/dL (32-36); Mean Corpuscular Volume 87.7 fL (81-99); Mean Platelet Vol. 12.3 fl (6.2-12.0); NRBC Flagged by Analyzer 0 % (0-5); Platelet Count 186 K/mm3 (150-450); RBC Distribution Width CV 12.9 % (11.6-14.6); RBC Distribution Width SD 41.1 fl (35.1-43.9); Red Blood Count 4.64 M/mm3 (4.2-5.4); White Blood Count 8.3 K/mm3 (4.4-11.0)
[2025-05-27 06:15] LABS: Anion Gap 11 (5-15); BUN 8 mg/dL (4-19); BUN/Creat Ratio 13.5 RATIO (10-20); Calcium,Total 9.1 mg/dL (7.6-11.0); Carbon Dioxide 25.3 mmol/L (21.0-32.0); Chloride 105 mmol/L (98-108); Estimated Creatinine Clearance 120.87 ml/min (50-250); Glucose 104 mg/dL (70-99); Magnesium 2.1 mg/dL (1.5-2.2); Potassium 3.4 mmol/L (3.3-5.1)
[2025-05-27 07:11] VITALS: BP 94/51; PULSE 100; RESP 16; TEMP 36.4; O2SAT 100
== END 2025-05-27 07:13 | disposition home or self-care (01) ==
PROVIDERS: Emergency Provider Emergency Medicine; PCP Family Medicine; Visit Provider Emergency Medicine
DX: H81.399 Other peripheral vertigo, unspecified ear (principal); R11.0 Nausea; Z90.710 Acquired absence of both cervix and uterus
CPT/HCPCS: 80048; 83735; 85025; 96361; 96374; 99282; A4216